=== PATIENT | male | born 1945 | race Caucasian/White ===

== ENCOUNTER 2017-04-16 14:24 | Inpatient (IN) | payer MEDICARE, OTHER ==
[~2017-04-16] VITALS: Ht 172.7 cm; Wt 103.0 kg
[~2017-04-16 14:24] MED LIST: AMLO10TA2 PO; ASPI-482 PO; ASPI-630 PO; ATOR20TA58 PO; CLIN300C8 PO; DIGO125T PO; DIGO125T16 PO; GLIP10TA13 PO; HYDR12.58 PO; HYDR25TA9 PO; Hydrocodone/Acetaminophen PO; LISI40TA PO; Lisinopril PO; METF-620 PO; METF500T9 PO; METO25TA4 PO; METO50TA2 PO; METO50TA29 PO; NAPR-634 PO; NAPR-677 PO; NAPR220C4 PO; NYST15CR TP; SIMV40TA PO; SIMV80TA3 PO
[2017-04-16] MEDS ORDERED: IV NORMAL SALINE 1000ML BAG 1,000 ML IV ONE ×2 (15:15→17:30)
--- NOTE | 2017-04-16 15:34 | PHYS DOC ---
Past Medical History Past Medical History: Arthritis, Diabetes-Type II, High Cholesterol, Hypertension, AR Past Surgical History: Cholecystectomy, Coronary Bypass Surgery, Knee Replacement Additional Past Surgical Histo: L KNEE REPLACEMENT, R EYE Alcohol Use: Occasionally Drug Use: None Adult General Chief Complaint Chief Complaint: CELLULITIS HPI HPI Patient is a 71 year old male with history of arthritis, diabetes type 2, hypertension, high cholesterol, who presents today with cellulitis of the right lower extremity. Patient states his had redness and swelling to the right lateral thigh as well as lateral knee for 2 weeks. Patient states the last time he had similar presentation it was an abscess in his knee that had to be evacuated by an orthopedic doctor. Patient denies any fever. Denies any nausea vomiting. Patient is very upset about being placed in room 6 which has a recliner instead of the bed. He states this is the worst hospital in town. He states this hospital is rated at a 2 and the only reason he comes here is convenient location to his house. Review of Systems Review of Systems Constitutional: Denies fever or chills [] Eyes: Denies change in visual acuity, redness, or eye pain [] HENT: Denies nasal congestion or sore throat [] Respiratory: Denies cough or shortness of breath [] Cardiovascular: No additional information not addressed in HPI [] GI: Denies abdominal pain, nausea, vomiting, bloody stools or diarrhea [] : Denies dysuria or hematuria [] Musculoskeletal: right lateral thigh and knee redness and swelling Integument: Denies rash or skin lesions [] Neurologic: Denies headache, focal weakness or sensory changes [] All other systems were reviewed and found to be within normal limits, except as documented in this note. Current Medications Current Medications Current Medications Medications (Trade) Dose Ordered Sig/Cheryl Start Time Stop Time Status Last Admin Dose Admin Ondansetron HCl (Zofran) 4 mg 1X ONCE 04/16/17 16:00 04/16/17 16:01 DC Sodium Chloride 1,000 ml @ 1,000 mls/hr 1X ONCE 04/16/17 15:15 04/16/17 16:14 DC 04/16/17 15:57 1,000 MLS/HR Allergies Allergies Allergies Coded Allergies Type Severity Reaction Last Updated Verified piperacillin Allergy Intermediate Rash 12/06/16 Yes tazobactam Allergy Intermediate Rash 12/06/16 Yes Physical Exam Physical Exam Constitutional: Well developed, well nourished, no acute distress, non-toxic appearance. [] HENT: Normocephalic, atraumatic, bilateral external ears normal, oropharynx moist, no oral exudates, nose normal. [] Eyes: PERRLA, EOMI, conjunctiva normal, no discharge. [] Neck: Normal range of motion, no tenderness, supple, no stridor. [] Cardiovascular:Heart rate regular rhythm, no murmur [] Lungs & Thorax: Bilateral breath sounds clear to auscultation [] Abdomen: Bowel sounds normal, soft, no tenderness, no masses, no pulsatile masses. [] Skin: Warm, dry, no erythema, no rash. [] Back: right lateral distal thigh and lateral knee with cellulitis and moderate swelling to the RLE. There is warmth over the the area with cellulites. There is limited ROM to the knee. +2 right pedal pulse. Negative Homans's sign to the RLE. Extremities: No tenderness, no cyanosis, no clubbing, ROM intact, no edema. [] Neurologic: Alert and oriented X 3, normal motor function, normal sensory function, no focal deficits noted. [] Psychologic: Affect normal, judgement normal, mood normal. [] Current Patient Data Vital Signs Vital Signs Date Time Temp Pulse Resp B/P (MAP) Pulse Ox O2 Delivery O2 Flow Rate FiO2 04/16/17 14:30 97.3 70 18 202/82 (122) 95 Room Air 97.3 Lab Values Laboratory Tests Test 04/16/17 15:50 White Blood Count 7.1 x10^3/uL (4.0-11.0) Red Blood Count 3.99 x10^6/uL (4.30-5.70) L Hemoglobin 12.1 g/dL (13.0-17.5) L Hematocrit 36.9 % (39.0-53.0) L Mean Corpuscular Volume 93 fL (79-100) Mean Corpuscular Hemoglobin 30 pg (25-35) Mean Corpuscular Hemoglobin Concent 33 g/dL (31-37) Red Cell Distribution Width 14.0 % (11.5-14.5) Platelet Count 264 x10^3/uL (140-400) Neutrophils (%) (Auto) 84 % (31-73) H Lymphocytes (%) (Auto) 9 % (24-48) L Monocytes (%) (Auto) 5 % (0-9) Eosinophils (%) (Auto) 2 % (0-3) Basophils (%) (Auto) 1 % (0-3) Neutrophils # (Auto) 6.0 x10^3uL (1.8-7.7) Lymphocytes # (Auto) 0.6 x10^3/uL (1.0-4.8) L Monocytes # (Auto) 0.3 x10^3/uL (0.0-1.1) Eosinophils # (Auto) 0.1 x10^3/uL (0.0-0.7) Basophils # (Auto) 0.1 x10^3/uL (0.0-0.2) Erythrocyte Sedimentation Rate 65 (0-15) H Prothrombin Time 14.5 SEC (11.7-14.0) H Prothrombin Time INR 1.2 (0.8-1.1) H PTT 32 SEC (24-38) Sodium Level 146 mmol/L (136-145) H Potassium Level 3.6 mmol/L (3.5-5.1) Chloride Level 112 mmol/L (98-107) H Carbon Dioxide Level 26 mmol/L (21-32) Anion Gap 8 (6-14) Blood Urea Nitrogen 21 mg/dL (8-26) Creatinine 1.3 mg/dL (0.7-1.3) Estimated GFR (Cockcroft-Gault) 54.6 BUN/Creatinine Ratio 16 (6-20) Glucose Level 144 mg/dL (70-99) H Calcium Level 8.4 mg/dL (8.5-10.1) L Total Bilirubin 0.4 mg/dL (0.2-1.0) Aspartate Amino Transferase (AST) 23 U/L (15-37) Alanine Aminotransferase (ALT) 23 U/L (16-63) Alkaline Phosphatase 165 U/L (46-116) H C-Reactive Protein, Quantitative 6.5 mg/L (0-3.3) H Total Protein 5.9 g/dL (6.4-8.2) L Albumin 2.5 g/dL (3.4-5.0) L Albumin/Globulin Ratio 0.7 (1.0-1.7) L Lipase 367 U/L (73-393) Laboratory Tests 04/16/17 15:50 Laboratory Tests 04/16/17 15:50 EKG EKG [] Radiology/Procedures Radiology/Procedures [] Course & Med Decision Making Course & Med Decision Making Pertinent Labs and Imaging studies reviewed. (See chart for details) Patient is in the ED with cellulitis of the right lateral lower extremity that his had for 2 weeks. He is insisting on an orthopedic surgeon to come to the ED and drainage stating this is an abscess that needs to be drained. Informed patient will do an ultrasound to the right lower extremity first. Ultrasound is negative for DVT or abscess but noted for swelling. Results were communicated to patient. Patient states he would like the orthopedic doctor to come and drained his knee again. Informed patient I can consult orthopedic doctor on the low follow-up with him probably tomorrow morning. Spoke with Broderick mid-level for Dr. Gutiérrez who stated he will pass message to him. Information was given to patient. Informed him we may need to do an x-ray to make sure there is no osteomyelitis to his knee. Patient now states they are ready did x-rays sometime in January and the x-rays were negative. He states his been fighting this infection since January. He states he has already done cephalexin antibiotic. Informed patient at this point we'll admit him and have him on antibiotic by IV. Admitted under Dr. Kaufman who is in the Ed talking to patient. Dragon Disclaimer Dragon Disclaimer This electronic medical record was generated, in whole or in part, using a voice recognition dictation system. Departure Departure Impression: Primary Impression: Cellulitis of right lower extremity Disposition: HOME, SELF-CARE Condition: STABLE Referrals: SUHAIL MARTINEZ (PCP) ISABEL BROWN STRESS ENGINEER Apr 16, 2017 15:34
--- NOTE | 2017-04-16 15:45 | RAD ---
Ultrasound venous Doppler Indication:right knee pain, redness, cellulitis Technique: Grayscale, color Doppler and spectral waveform ultrasound images of the right extremity deep veins. Comparison: None Findings: The interrogated lower extremity veins are compressible and demonstrate evidence of blood flow with normal respiratory variation and response to augmentation. Significant edema noted of the thigh soft tissue. Impression: No sonographic evidence of acute DVT of the interrogated right lower extremity deep veins. Significant edema of the thigh soft tissue.
[2017-04-16] MEDS ORDERED: ONDANSETRON PF 4 MG/2 ML VIAL. IV ONE (16:00)
[2017-04-16 16:03] LABS: BASO # 0.1 x10^3/uL (0.0-0.2); BASO % 1 % (0-3); EOS % 2 % (0-3); HEMATOCRIT 36.9 % (39.0-53.0); HEMOGLOBIN 12.1 g/dL (13.0-17.5); LYMPH # 0.6 x10^3/uL (1.0-4.8); LYMPH % 9 % (24-48); MEAN CORPUSCULAR HEMOGLOBIN 30 pg (25-35); MEAN CORPUSCULAR HGB CONC 33 g/dL (31-37); MEAN CORPUSCULAR VOLUME 93 fL (79-100); MONO % 5 % (0-9); NEUT % 84 % (31-73); PLATELET COUNT 264 x10^3/uL (140-400); RED BLOOD COUNT 3.99 x10^6/uL (4.30-5.70); WHITE BLOOD COUNT 7.1 x10^3/uL (4.0-11.0)
[2017-04-16 16:14] LABS: INR 1.2 (0.8-1.1); PROTHROMBIN TIME PATIENT 14.5 SEC (11.7-14.0)
[2017-04-16 16:31] LABS: CALCIUM 8.4 mg/dL (8.5-10.1); CREATININE 1.3 mg/dL (0.7-1.3); GFR 54.6; POTASSIUM 3.6 mmol/L (3.5-5.1)
[2017-04-16 16:35] LABS: ALBUMIN 2.5 g/dL (3.4-5.0); ALBUMIN/GLOBULIN RATIO 0.7 (1.0-1.7); TOTAL BILIRUBIN 0.4 mg/dL (0.2-1.0); TOTAL PROTEIN 5.9 g/dL (6.4-8.2)
[2017-04-16 17:11] LABS: C-REACTIVE PROTEIN 6.5 mg/L (0-3.3)
[2017-04-16] MEDS ORDERED: MORPHINE SULFATE 2 MG/ML DISP.SYRIN. IV PRN (17:30)
[2017-04-16] MEDS ORDERED: FUROSEMIDE 40 MG/4 ML VIAL. IVP ONE (17:30)
[2017-04-16] MEDS ORDERED: DEXTROSE 50% 25 GM / 50ML DISP.SYRIN. IV PRN (17:30)
[2017-04-16] MEDS ORDERED: NYSTATIN 100,000 UNIT/GM TOPICAL CREAM 15GM TUBE. TP PRN (17:30)
[2017-04-16] MEDS ORDERED: MORPHINE SULFATE 4 MG/ML DISP.SYRIN. IV PRN (17:30)
[2017-04-16] MEDS ORDERED: VANCOMYCIN 2 GM in IV DEXTROSE 5 %-0.2 % NACL 500 ML IV ONE (17:30)
[2017-04-16] MEDS ORDERED: ONDANSETRON PF 4 MG/2 ML VIAL. IV PRN ×2 (17:30)
--- NOTE | 2017-04-16 17:38 | PDOC1 ---
History and Physical Date of Admission Date of Admission DATE: 04/16/17 TIME: 17:31 Identification/Chief Complaint Chief Complaint leg swelling and pain Problems: Source Source: Caregiver, Chart review, Patient History of Present Illness History of Present Illness 71 y.o male who is a diabetic, unknown hgba1c, obese, comes in bec has been battling weeping legs x 3 mos now with his PCP Roshni Mars. NOt on lasix at home, asks about his kidney numbers, In any case, legs are red swollen, tight, noDVT on US but ? abscess rt leg? also pt has swollen Rt knee and wants ortho to drain the fluid, He was here this yr for abscess in thight that needed I and D by ortho that time, He also feels he is bloated and fluid overloaded in chest abdomen etc, Unsure when alst echo was, no hx of heart failure, NO open lesions but is tightm, red, lichenification from chronic cellulitis Past Medical History Cardiovascular: AFIB, CAD, HTN Endocrine: Diabetes Past Surgical History Past Surgical History: CABG Family History Family History: Diabetes, High Cholestrol, Hypertension Social History Smoke: No ALCOHOL: none Drugs: None Current Problem List Problem List Problems Medical Problems: (1) Cellulitis of right lower extremity Status: Acute Problems: Current Medications Current Medications Current Medications Sodium Chloride 1,000 ml @ 1,000 mls/hr 1X ONCE IV Last administered on 04/16t 15:57; Start 04/16/17 at 15:15; Stop 04/16/17 at 16:14; Status DC Ondansetron HCl (Zofran) 4 mg 1X ONCE IV ; Start 04/16/17 at 16:00; Stop at 16:01; Status DC Ondansetron HCl (Zofran) 4 mg PRN Q8HRS PRN IV NAUSEA/VOMITING; Start at 17:30; Stop 04/17/17 at 17:29 Morphine Sulfate 4 mg PRN Q2HR PRN IV PAIN; Start 04/16/17 at 17:30; Stop at 17:29 Vancomycin HCl (Vanco Per Pharmacy) 1 each DAILY MC ; Start 04/17/17 at 09:00; Status UNV Sodium Chloride 1,000 ml @ 100 mls/hr 1X ONCE IV ; Start 04/16/17 at 17:30; Stop 04/17/17 at 03:29 Vancomycin HCl 2 gm/Dextrose/ Sodium Chloride 500 ml @ 250 mls/hr 1X ONCE IV ; Start 04/16/17 at 17:30; Stop 04/16/17 at 19:29 Active Scripts Active Amlodipine Besylate 10 Mg Tablet 10 Mg PO DAILY Reported Atorvastatin Calcium 20 Mg Tablet 20 Mg PO HS Nystatin 15 Gm Cream..g. 1 Jt TP TID PRN Metoprolol Tartrate 25 Mg Tablet 0.5 Tab PO BID Metformin Hcl 1,000 Mg Tablet 1 Tab PO BID Hydrochlorothiazide Tablet (Hydrochlorothiazide) 25 Mg Tablet 25 Mg PO DAILY Lisinopril 40 Mg Tablet 40 Mg PO DAILY Aspirin 81 Mg Tab.chew 81 Mg PO DAILYAC Glipizide 10 Mg Tablet 1 Tab PO BID Allergies Allergies: Coded Allergies: piperacillin (Verified Allergy, Intermediate, Rash, 12/06/16) tazobactam (Verified Allergy, Intermediate, Rash, 12/06/16) ROS Review of System as per HPI, all else is neg Physical Exam General: Alert, Oriented X3, Cooperative, No acute distress HEENT: Atraumatic, PERRLA, EOMI Lungs: Clear to auscultation, Normal air movement, Other (dec BS sec to inc AP diam) Heart: S1S2, RRR, no thrills, no rubs Abdomen: Soft, Other (obese, hypoactive BS, non tender) Skin: Other (plus 2-3 tight pitting edema, redenned, post inflamm hyperpigmentationand lichenification present, some skin abrasions and tear, no weeping lesions for now) Neuro: Normal gait, Normal speech, Strength at 5/5 X4 ext, Normal tone, Sensation intact, Cranial nerves 3-12 NL, Reflexes 2+ Psych/Mental Status: Mental status NL, Mood NL Vitals Vitals Vital Signs Date Time Temp Pulse Resp B/P (MAP) Pulse Ox O2 Delivery O2 Flow Rate FiO2 04/16/17 14:30 97.3 70 18 202/82 (122) 95 Room Air 97.3 Labs Labs Laboratory Tests Test 04/16/17 15:50 White Blood Count 7.1 x10^3/uL (4.0-11.0) Red Blood Count 3.99 x10^6/uL (4.30-5.70) Hemoglobin 12.1 g/dL (13.0-17.5) Hematocrit 36.9 % (39.0-53.0) Mean Corpuscular Volume 93 fL (79-100) Mean Corpuscular Hemoglobin 30 pg (25-35) Mean Corpuscular Hemoglobin Concent 33 g/dL (31-37) Red Cell Distribution Width 14.0 % (11.5-14.5) Platelet Count 264 x10^3/uL (140-400) Neutrophils (%) (Auto) 84 % (31-73) Lymphocytes (%) (Auto) 9 % (24-48) Monocytes (%) (Auto) 5 % (0-9) Eosinophils (%) (Auto) 2 % (0-3) Basophils (%) (Auto) 1 % (0-3) Neutrophils # (Auto) 6.0 x10^3uL (1.8-7.7) Lymphocytes # (Auto) 0.6 x10^3/uL (1.0-4.8) Monocytes # (Auto) 0.3 x10^3/uL (0.0-1.1) Eosinophils # (Auto) 0.1 x10^3/uL (0.0-0.7) Basophils # (Auto) 0.1 x10^3/uL (0.0-0.2) Erythrocyte Sedimentation Rate 65 (0-15) Prothrombin Time 14.5 SEC (11.7-14.0) Prothromb Time International Ratio 1.2 (0.8-1.1) Activated Partial Thromboplast Time 32 SEC (24-38) Sodium Level 146 mmol/L (136-145) Potassium Level 3.6 mmol/L (3.5-5.1) Chloride Level 112 mmol/L (98-107) Carbon Dioxide Level 26 mmol/L (21-32) Anion Gap 8 (6-14) Blood Urea Nitrogen 21 mg/dL (8-26) Creatinine 1.3 mg/dL (0.7-1.3) Estimated GFR (Cockcroft-Gault) 54.6 BUN/Creatinine Ratio 16 (6-20) Glucose Level 144 mg/dL (70-99) Calcium Level 8.4 mg/dL (8.5-10.1) Total Bilirubin 0.4 mg/dL (0.2-1.0) Aspartate Amino Transf (AST/SGOT) 23 U/L (15-37) Alanine Aminotransferase (ALT/SGPT) 23 U/L (16-63) Alkaline Phosphatase 165 U/L (46-116) C-Reactive Protein, Quantitative 6.5 mg/L (0-3.3) Total Protein 5.9 g/dL (6.4-8.2) Albumin 2.5 g/dL (3.4-5.0) Albumin/Globulin Ratio 0.7 (1.0-1.7) Lipase 367 U/L (73-393) Laboratory Tests Test 04/16/17 15:50 White Blood Count 7.1 x10^3/uL (4.0-11.0) Red Blood Count 3.99 x10^6/uL (4.30-5.70) Hemoglobin 12.1 g/dL (13.0-17.5) Hematocrit 36.9 % (39.0-53.0) Mean Corpuscular Volume 93 fL (79-100) Mean Corpuscular Hemoglobin 30 pg (25-35) Mean Corpuscular Hemoglobin Concent 33 g/dL (31-37) Red Cell Distribution Width 14.0 % (11.5-14.5) Platelet Count 264 x10^3/uL (140-400) Neutrophils (%) (Auto) 84 % (31-73) Lymphocytes (%) (Auto) 9 % (24-48) Monocytes (%) (Auto) 5 % (0-9) Eosinophils (%) (Auto) 2 % (0-3) Basophils (%) (Auto) 1 % (0-3) Neutrophils # (Auto) 6.0 x10^3uL (1.8-7.7) Lymphocytes # (Auto) 0.6 x10^3/uL (1.0-4.8) Monocytes # (Auto) 0.3 x10^3/uL (0.0-1.1) Eosinophils # (Auto) 0.1 x10^3/uL (0.0-0.7) Basophils # (Auto) 0.1 x10^3/uL (0.0-0.2) Erythrocyte Sedimentation Rate 65 (0-15) Prothrombin Time 14.5 SEC (11.7-14.0) Prothromb Time International Ratio 1.2 (0.8-1.1) Activated Partial Thromboplast Time 32 SEC (24-38) Sodium Level 146 mmol/L (136-145) Potassium Level 3.6 mmol/L (3.5-5.1) Chloride Level 112 mmol/L (98-107) Carbon Dioxide Level 26 mmol/L (21-32) Anion Gap 8 (6-14) Blood Urea Nitrogen 21 mg/dL (8-26) Creatinine 1.3 mg/dL (0.7-1.3) Estimated GFR (Cockcroft-Gault) 54.6 BUN/Creatinine Ratio 16 (6-20) Glucose Level 144 mg/dL (70-99) Calcium Level 8.4 mg/dL (8.5-10.1) Total Bilirubin 0.4 mg/dL (0.2-1.0) Aspartate Amino Transf (AST/SGOT) 23 U/L (15-37) Alanine Aminotransferase (ALT/SGPT) 23 U/L (16-63) Alkaline Phosphatase 165 U/L (46-116) C-Reactive Protein, Quantitative 6.5 mg/L (0-3.3) Total Protein 5.9 g/dL (6.4-8.2) Albumin 2.5 g/dL (3.4-5.0) Albumin/Globulin Ratio 0.7 (1.0-1.7) Lipase 367 U/L (73-393) VTE Prophylaxis Ordered VTE Prophylaxis Devices: Yes VTE Pharmacological Prophylaxi: Yes Assessment/Plan Assessment/Plan 1. BIlateral LE cellulitis, no DVT ? abscesson RT ? 2. Dm 2 with neuropathy unknown hgba1c 3. 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 Hypernatremia 7, Anemia, normocytic, chronic 8. POss OA, rt knee with fluid plan: Admit 2 MN Consult ortho re possible drainage RT knee Check knee xray SSI high dose Check hgba1c Check echo and CXR gven anasarca Lasix daily and IV x 1 now 40 Wound care Onitor lytes while on lasix Consult ID re the cellulitis PT./OT and OT lymphedema Keep legs elevated DVT prophy Seen at ER Vanc per pharmacy was started by mid level provider Needs to lose weight STEFANIA MONTAGUE MD Apr 16, 2017 17:38
[2017-04-16 19:00] VITALS: BP 169/84
[2017-04-16] MEDS ORDERED: LABETALOL 20 MG/4 ML DISP.SYRIN. IVP PRN (19:00)
[2017-04-16] MEDS: METOPROLOL TART IMMED RELEASE 25 MG TABLET. PO SCH (20:18)
[2017-04-16] MEDS: ATORVASTATIN CALCIUM 20 MG TABLET PO SCH (20:18)
[2017-04-16] MEDS: TAMSULOSIN 0.4 MG CAP.ER.24H. PO SCH (20:19)
[2017-04-16 23:00] VITALS: BP 166/78
[2017-04-17 03:00] VITALS: BP 161/81
[2017-04-17 06:49] LABS: BASO % 1 % (0-3); EOS % 4 % (0-3); HEMATOCRIT 38.5 % (39.0-53.0); HEMOGLOBIN 12.5 g/dL (13.0-17.5); LYMPH # 0.8 x10^3/uL (1.0-4.8); LYMPH % 14 % (24-48); MEAN CORPUSCULAR HEMOGLOBIN 30 pg (25-35); MEAN CORPUSCULAR HGB CONC 33 g/dL (31-37); MEAN CORPUSCULAR VOLUME 93 fL (79-100); MONO % 6 % (0-9); NEUT % 75 % (31-73); PLATELET COUNT 271 x10^3/uL (140-400); RED BLOOD COUNT 4.15 x10^6/uL (4.30-5.70); WHITE BLOOD COUNT 5.8 x10^3/uL (4.0-11.0)
--- NOTE | 2017-04-17 06:59 | EKG ---
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
[2017-04-17 07:15] LABS: CALCIUM 8.2 mg/dL (8.5-10.1); CREATININE 1.2 mg/dL (0.7-1.3); GFR 59.9; POTASSIUM 4.1 mmol/L (3.5-5.1)
[2017-04-17 07:35] VITALS: BP 157/74
[2017-04-17] MEDS: INSULIN ASPART 300 UNITS/3 ML INSULN.PEN SQ SCH ×3 (08:00→17:00)
[2017-04-17] MEDS ORDERED: LIDO:MAALOX:DONNATAL 1:1:1 15 ML SINGLE DOSE SWSW ONE (08:30)
--- NOTE | 2017-04-17 08:34 | PDOC ---
PROGRESS NOTES Chief Complaint Chief Complaint 1. BIlateral LE cellulitis, no DVT ? abscesson RT ? 2. Dm 2 with neuropathy unknown hgba1c 3. 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 Hypernatremia 7, Anemia, normocytic, chronic 8. POss OA, rt knee with fluid History of Present Illness History of Present Illness Consult ortho re possible drainage RT knee Check knee xray echo pending, A1c Check echo and CXR kinza Fernandez daily consult Lorri, he has seen him previously weight gain, wants ADA diet changed to regular, will consult nutrition PT./OT and OT lymphedema Keep legs elevated DVT prophy Seen at ER [facility] per pharmacy was started by mid level provider Needs to lose weight Vitals Vitals Vital Signs Date Time Temp Pulse Resp B/P (MAP) Pulse Ox O2 Delivery O2 Flow Rate FiO2 04/17/17 07:35 98.1 71 18 157/74 (101) 92 Room Air 98.1 Physical Exam General: Alert, Oriented X3, Cooperative, No acute distress Lungs: Clear Abdomen: Soft, Other (obese, hypoactive BS, non tender) Extremities: Other (2+ LE edema, bilat and symmetrical) Skin: Other ( 2 pitting edema, redenned, post inflamm hyperpigmentationand lichenification present, some skin abrasions and tear, no weeping lesions for now) Labs LABS Laboratory Tests Test 04/16/17 15:50 04/16/17 21:26 04/17/17 06:10 04/17/17 07:11 White Blood Count 7.1 x10^3/uL (4.0-11.0) 5.8 x10^3/uL (4.0-11.0) Red Blood Count 3.99 x10^6/uL (4.30-5.70) 4.15 x10^6/uL (4.30-5.70) Hemoglobin 12.1 g/dL (13.0-17.5) 12.5 g/dL (13.0-17.5) Hematocrit 36.9 % (39.0-53.0) 38.5 % (39.0-53.0) Mean Corpuscular Volume 93 fL (79-100) 93 fL (79-100) Mean Corpuscular Hemoglobin 30 pg (25-35) 30 pg (25-35) Mean Corpuscular Hemoglobin Concent 33 g/dL (31-37) 33 g/dL (31-37) Red Cell Distribution Width 14.0 % (11.5-14.5) 14.0 % (11.5-14.5) Platelet Count 264 x10^3/uL (140-400) 271 x10^3/uL (140-400) Neutrophils (%) (Auto) 84 % (31-73) 75 % (31-73) Lymphocytes (%) (Auto) 9 % (24-48) 14 % (24-48) Monocytes (%) (Auto) 5 % (0-9) 6 % (0-9) Eosinophils (%) (Auto) 2 % (0-3) 4 % (0-3) Basophils (%) (Auto) 1 % (0-3) 1 % (0-3) Neutrophils # (Auto) 6.0 x10^3uL (1.8-7.7) 4.3 x10^3uL (1.8-7.7) Lymphocytes # (Auto) 0.6 x10^3/uL (1.0-4.8) 0.8 x10^3/uL (1.0-4.8) Monocytes # (Auto) 0.3 x10^3/uL (0.0-1.1) 0.4 x10^3/uL (0.0-1.1) Eosinophils # (Auto) 0.1 x10^3/uL (0.0-0.7) 0.2 x10^3/uL (0.0-0.7) Basophils # (Auto) 0.1 x10^3/uL (0.0-0.2) 0.0 x10^3/uL (0.0-0.2) Erythrocyte Sedimentation Rate 65 (0-15) Prothrombin Time 14.5 SEC (11.7-14.0) Prothromb Time International Ratio 1.2 (0.8-1.1) Activated Partial Thromboplast Time 32 SEC (24-38) Sodium Level 146 mmol/L (136-145) 145 mmol/L (136-145) Potassium Level 3.6 mmol/L (3.5-5.1) 4.1 mmol/L (3.5-5.1) Chloride Level 112 mmol/L (98-107) 112 mmol/L (98-107) Carbon Dioxide Level 26 mmol/L (21-32) 25 mmol/L (21-32) Anion Gap 8 (6-14) 8 (6-14) Blood Urea Nitrogen 21 mg/dL (8-26) 17 mg/dL (8-26) Creatinine 1.3 mg/dL (0.7-1.3) 1.2 mg/dL (0.7-1.3) Estimated GFR (Cockcroft-Gault) 54.6 59.9 BUN/Creatinine Ratio 16 (6-20) Glucose Level 144 mg/dL (70-99) 121 mg/dL (70-99) Calcium Level 8.4 mg/dL (8.5-10.1) 8.2 mg/dL (8.5-10.1) Total Bilirubin 0.4 mg/dL (0.2-1.0) Aspartate Amino Transf (AST/SGOT) 23 U/L (15-37) Alanine Aminotransferase (ALT/SGPT) 23 U/L (16-63) Alkaline Phosphatase 165 U/L (46-116) C-Reactive Protein, Quantitative 6.5 mg/L (0-3.3) Total Protein 5.9 g/dL (6.4-8.2) Albumin 2.5 g/dL (3.4-5.0) Albumin/Globulin Ratio 0.7 (1.0-1.7) Lipase 367 U/L (73-393) Prostate Specific Antigen 2.52 ng/mL (0.00-4.00) Glucose (Fingerstick) 167 mg/dL (70-99) 120 mg/dL (70-99) Troponin I Quantitative < 0.017 ng/mL (0.000-0.055) Review of Systems Review of Systems no n.vd. right knee less swollen today Assessment and Plan Assessmemt and Plan Problems Medical Problems: (1) Cellulitis of right lower extremity Status: Acute Problems: Comment Review of Relevant I have reviewed the following items marina (where applicable) has been applied. Labs Laboratory Tests Test 04/16/17 15:50 04/16/17 21:26 04/17/17 06:10 04/17/17 07:11 White Blood Count 7.1 x10^3/uL (4.0-11.0) 5.8 x10^3/uL (4.0-11.0) Red Blood Count 3.99 x10^6/uL (4.30-5.70) 4.15 x10^6/uL (4.30-5.70) Hemoglobin 12.1 g/dL (13.0-17.5) 12.5 g/dL (13.0-17.5) Hematocrit 36.9 % (39.0-53.0) 38.5 % (39.0-53.0) Mean Corpuscular Volume 93 fL (79-100) 93 fL (79-100) Mean Corpuscular Hemoglobin 30 pg (25-35) 30 pg (25-35) Mean Corpuscular Hemoglobin Concent 33 g/dL (31-37) 33 g/dL (31-37) Red Cell Distribution Width 14.0 % (11.5-14.5) 14.0 % (11.5-14.5) Platelet Count 264 x10^3/uL (140-400) 271 x10^3/uL (140-400) Neutrophils (%) (Auto) 84 % (31-73) 75 % (31-73) Lymphocytes (%) (Auto) 9 % (24-48) 14 % (24-48) Monocytes (%) (Auto) 5 % (0-9) 6 % (0-9) Eosinophils (%) (Auto) 2 % (0-3) 4 % (0-3) Basophils (%) (Auto) 1 % (0-3) 1 % (0-3) Neutrophils # (Auto) 6.0 x10^3uL (1.8-7.7) 4.3 x10^3uL (1.8-7.7) Lymphocytes # (Auto) 0.6 x10^3/uL (1.0-4.8) 0.8 x10^3/uL (1.0-4.8) Monocytes # (Auto) 0.3 x10^3/uL (0.0-1.1) 0.4 x10^3/uL (0.0-1.1) Eosinophils # (Auto) 0.1 x10^3/uL (0.0-0.7) 0.2 x10^3/uL (0.0-0.7) Basophils # (Auto) 0.1 x10^3/uL (0.0-0.2) 0.0 x10^3/uL (0.0-0.2) Erythrocyte Sedimentation Rate 65 (0-15) Prothrombin Time 14.5 SEC (11.7-14.0) Prothromb Time International Ratio 1.2 (0.8-1.1) Activated Partial Thromboplast Time 32 SEC (24-38) Sodium Level 146 mmol/L (136-145) 145 mmol/L (136-145) Potassium Level 3.6 mmol/L (3.5-5.1) 4.1 mmol/L (3.5-5.1) Chloride Level 112 mmol/L (98-107) 112 mmol/L (98-107) Carbon Dioxide Level 26 mmol/L (21-32) 25 mmol/L (21-32) Anion Gap 8 (6-14) 8 (6-14) Blood Urea Nitrogen 21 mg/dL (8-26) 17 mg/dL (8-26) Creatinine 1.3 mg/dL (0.7-1.3) 1.2 mg/dL (0.7-1.3) Estimated GFR (Cockcroft-Gault) 54.6 59.9 BUN/Creatinine Ratio 16 (6-20) Glucose Level 144 mg/dL (70-99) 121 mg/dL (70-99) Calcium Level 8.4 mg/dL (8.5-10.1) 8.2 mg/dL (8.5-10.1) Total Bilirubin 0.4 mg/dL (0.2-1.0) Aspartate Amino Transf (AST/SGOT) 23 U/L (15-37) Alanine Aminotransferase (ALT/SGPT) 23 U/L (16-63) Alkaline Phosphatase 165 U/L (46-116) C-Reactive Protein, Quantitative 6.5 mg/L (0-3.3) Total Protein 5.9 g/dL (6.4-8.2) Albumin 2.5 g/dL (3.4-5.0) Albumin/Globulin Ratio 0.7 (1.0-1.7) Lipase 367 U/L (73-393) Prostate Specific Antigen 2.52 ng/mL (0.00-4.00) Glucose (Fingerstick) 167 mg/dL (70-99) 120 mg/dL (70-99) Troponin I Quantitative < 0.017 ng/mL (0.000-0.055) Laboratory Tests Test 04/16/17 15:50 04/16/17 21:26 04/17/17 06:10 04/17/17 07:11 White Blood Count 7.1 x10^3/uL (4.0-11.0) 5.8 x10^3/uL (4.0-11.0) Red Blood Count 3.99 x10^6/uL (4.30-5.70) 4.15 x10^6/uL (4.30-5.70) Hemoglobin 12.1 g/dL (13.0-17.5) 12.5 g/dL (13.0-17.5) Hematocrit 36.9 % (39.0-53.0) 38.5 % (39.0-53.0) Mean Corpuscular Volume 93 fL (79-100) 93 fL (79-100) Mean Corpuscular Hemoglobin 30 pg (25-35) 30 pg (25-35) Mean Corpuscular Hemoglobin Concent 33 g/dL (31-37) 33 g/dL (31-37) Red Cell Distribution Width 14.0 % (11.5-14.5) 14.0 % (11.5-14.5) Platelet Count 264 x10^3/uL (140-400) 271 x10^3/uL (140-400) Neutrophils (%) (Auto) 84 % (31-73) 75 % (31-73) Lymphocytes (%) (Auto) 9 % (24-48) 14 % (24-48) Monocytes (%) (Auto) 5 % (0-9) 6 % (0-9) Eosinophils (%) (Auto) 2 % (0-3) 4 % (0-3) Basophils (%) (Auto) 1 % (0-3) 1 % (0-3) Neutrophils # (Auto) 6.0 x10^3uL (1.8-7.7) 4.3 x10^3uL (1.8-7.7) Lymphocytes # (Auto) 0.6 x10^3/uL (1.0-4.8) 0.8 x10^3/uL (1.0-4.8) Monocytes # (Auto) 0.3 x10^3/uL (0.0-1.1) 0.4 x10^3/uL (0.0-1.1) Eosinophils # (Auto) 0.1 x10^3/uL (0.0-0.7) 0.2 x10^3/uL (0.0-0.7) Basophils # (Auto) 0.1 x10^3/uL (0.0-0.2) 0.0 x10^3/uL (0.0-0.2) Erythrocyte Sedimentation Rate 65 (0-15) Prothrombin Time 14.5 SEC (11.7-14.0) Prothromb Time International Ratio 1.2 (0.8-1.1) Activated Partial Thromboplast Time 32 SEC (24-38) Sodium Level 146 mmol/L (136-145) 145 mmol/L (136-145) Potassium Level 3.6 mmol/L (3.5-5.1) 4.1 mmol/L (3.5-5.1) Chloride Level 112 mmol/L (98-107) 112 mmol/L (98-107) Carbon Dioxide Level 26 mmol/L (21-32) 25 mmol/L (21-32) Anion Gap 8 (6-14) 8 (6-14) Blood Urea Nitrogen 21 mg/dL (8-26) 17 mg/dL (8-26) Creatinine 1.3 mg/dL (0.7-1.3) 1.2 mg/dL (0.7-1.3) Estimated GFR (Cockcroft-Gault) 54.6 59.9 BUN/Creatinine Ratio 16 (6-20) Glucose Level 144 mg/dL (70-99) 121 mg/dL (70-99) Calcium Level 8.4 mg/dL (8.5-10.1) 8.2 mg/dL (8.5-10.1) Total Bilirubin 0.4 mg/dL (0.2-1.0) Aspartate Amino Transf (AST/SGOT) 23 U/L (15-37) Alanine Aminotransferase (ALT/SGPT) 23 U/L (16-63) Alkaline Phosphatase 165 U/L (46-116) C-Reactive Protein, Quantitative 6.5 mg/L (0-3.3) Total Protein 5.9 g/dL (6.4-8.2) Albumin 2.5 g/dL (3.4-5.0) Albumin/Globulin Ratio 0.7 (1.0-1.7) Lipase 367 U/L (73-393) Prostate Specific Antigen 2.52 ng/mL (0.00-4.00) Glucose (Fingerstick) 167 mg/dL (70-99) 120 mg/dL (70-99) Troponin I Quantitative < 0.017 ng/mL (0.000-0.055) Medications Current Medications Sodium Chloride 1,000 ml @ 1,000 mls/hr 1X ONCE IV Last administered on 04/16 15:57; Start 04/16/17 at 15:15; Stop 04/16/17 at 16:14; Status DC Ondansetron HCl (Zofran) 4 mg 1X ONCE IV ; Start 04/16/17 at 16:00; Stop at 16:01; Status DC Ondansetron HCl (Zofran) 4 mg PRN Q8HRS PRN IV NAUSEA/VOMITING; Start at 17:30; Stop 04/16/17 at 17:30; Status DC Morphine Sulfate 4 mg PRN Q2HR PRN IV PAIN; Start 04/16/17 at 17:30; Stop at 17:29 Vancomycin HCl (Vanco Per Pharmacy) 1 each DAILY MC ; Start 04/17/17 at 09:00 Sodium Chloride 1,000 ml @ 100 mls/hr 1X ONCE IV Last administered on 18:39; Start 04/16/17 at 17:30; Stop 04/17/17 at 03:29; Status DC Vancomycin HCl 2 gm/Dextrose/ Sodium Chloride 500 ml @ 250 mls/hr 1X ONCE IV Last administered on 04/16/17 18:26; Start 04/16/17 at 17:30; Stop 04/16/17 at 19:29; Status DC Ondansetron HCl (Zofran) 4 mg PRN Q6HRS PRN IV NAUSEA/VOMITING; Start at 17:30; Stop 04/17/17 at 17:29 Insulin Aspart (NovoLOG) 0-9 UNITS TIDWMEALS SQ ; Start 04/17/17 at 08:00 Dextrose (Dextrose 50%-Water Syringe) 12.5 gm PRN Q15MIN PRN IV SEE COMMENTS; Start 04/16/17 at 17:30 Morphine Sulfate 2 mg PRN Q2HR PRN IV PAIN; Start 04/16/17 at 17:30 Tamsulosin HCl (Flomax) 0.4 mg QHS PO Last administered on 04/16/17 20:19; Start 04/16/17 at 21:00 Amlodipine Besylate (Norvasc) 10 mg DAILY PO ; Start 04/17/17 at 09:00 Atorvastatin Calcium (Lipitor) 20 mg HS PO Last administered on 04/16/17 20: 18; Start 04/16/17 at 21:00 Hydrochlorothiazide (Hydrodiuril) 25 mg DAILY PO ; Start 04/17/17 at 09:00 Lisinopril (Prinivil) 40 mg DAILY PO ; Start 04/17/17 at 09:00 Metformin HCl (Glucophage) 1,000 mg BIDWMEALS PO ; Start 04/17/17 at 08:00 Metoprolol Tartrate (Lopressor) 12.5 mg BID PO Last administered on 04/16/17 20:18; Start 04/16/17 at 21:00 Nystatin (Mycostatin) 1 jt TID PRN TP RASH; Start 04/16/17 at 17:30 Glipizide (Glucotrol) 10 mg BIDBFRMEAL PO ; Start 04/17/17 at 07:30 Furosemide (Lasix) 40 mg DAILY IVP ; Start 04/17/17 at 09:00 Furosemide (Lasix) 40 mg 1X ONCE IVP Last administered on 04/16/17 18:27; Start 04/16/17 at 17:30; Stop 04/16/17 at 17:39; Status DC Vancomycin HCl 1.5 gm/Dextrose/ Sodium Chloride 500 ml @ 250 mls/hr Q18H ONCE IV ; Start 04/17/17 at 12:00; Stop 04/17/17 at 13:59 Vancomycin HCl 1 each 1X ONCE MC ; Start 04/18/17 at 05:30; Stop 04/18/17 at 05:31 Labetalol HCl (Normodyne) 10 mg PRN BID PRN IVP HYPERTENSION, SEE COMMENTS; Start 04/16/17 at 19:00 Pneumococcal Polyvalent Vaccine (Do NOT chart on this placeholder) 1 each 1X ONCE MC ; Start 04/17/17 at 09:00; Stop 04/17/17 at 09:01; Status UNV Pneumococcal Polyvalent Vaccine (Pneumovax 23) 0.5 ml ONCE ONCE VAX IM ; Start 04/17/17 at 09:00; Stop 04/17/17 at 09:01 Active Scripts Active Amlodipine Besylate 10 Mg Tablet 10 Mg PO DAILY Reported Atorvastatin Calcium 20 Mg Tablet 20 Mg PO HS Nystatin 15 Gm Cream..g. 1 Jt TP TID PRN Metoprolol Tartrate 25 Mg Tablet 0.5 Tab PO BID Metformin Hcl 1,000 Mg Tablet 1 Tab PO BID Hydrochlorothiazide Tablet (Hydrochlorothiazide) 25 Mg Tablet 25 Mg PO DAILY Lisinopril 40 Mg Tablet 40 Mg PO DAILY Aspirin 81 Mg Tab.chew 81 Mg PO DAILYAC Glipizide 10 Mg Tablet 1 Tab PO BID Vitals/I & O Vital Sign - Last 24 Hours 04/16/17 04/16/17 04/16/17 04/16/17 14:30 17:49 18:45 19:00 Temp 97.3 98.0 97.3 98.0 Pulse 70 66 70 72 Resp 18 18 16 20 B/P (MAP) 202/82 (122) 195/83 (120) 204/91 (128) 169/84 (112) Pulse Ox 95 96 95 95 O2 Delivery Room Air Room Air Room Air Room Air 04/16/17 04/16/17 04/16/17 04/17/17 20:18 23:00 23:27 03:00 Temp 98.2 98.2 98.2 98.2 Pulse 70 70 69 Resp 20 20 B/P (MAP) 204/91 166/78 (107) 161/81 (107) Pulse Ox 92 92 O2 Delivery Room Air Room Air Room Air 04/17/17 07:35 Temp 98.1 98.1 Pulse 71 Resp 18 B/P (MAP) 157/74 (101) Pulse Ox 92 O2 Delivery Room Air Intake and Output 04/16/17 04/16/17 04/17/17 15:00 23:00 07:00 Intake Total 1000 ml 3800 ml Output Total 3500 ml Balance 1000 ml 300 ml SHAHEEN HOLLAND MD Apr 17, 2017 08:34
--- NOTE | 2017-04-17 08:39 | RAD ---
Knee x-rays Indication: Pain and swelling. History of kidney surgery. Technique: 2 views of the right knee Comparison: None Findings: No acute fracture or dislocation. There is moderate lateral joint compartment narrowing with bony spurs in the posterior patellar margin. No suprapatellar effusion. Peripheral arterial disease as suggested by vascular calcifications. Impression: No acute fractures. Lateral compartment osteoarthritis.
[2017-04-17] MEDS: glipiZIDE 5 MG TABLET PO SCH ×2 (08:47→17:20)
[2017-04-17] MEDS: hydroCHLOROthiazide 25 MG TABLET PO SCH (08:48)
[2017-04-17] MEDS: amLODIPine BESYLATE 10 MG TABLET PO SCH (08:48)
[2017-04-17] MEDS: METOPROLOL TART IMMED RELEASE 25 MG TABLET. PO SCH ×2 (08:49→20:44)
[2017-04-17] MEDS: LISINOPRIL 40 MG TABLET. PO SCH (08:49)
--- NOTE | 2017-04-17 08:50 | RAD ---
CHEST PA LATERAL Clinical Indication: swelling, pain Comparison: Chest radiograph dated 03/25/2016 Findings: Unchanged asymmetric elevation of the right hemidiaphragm. No focal consolidations. Stable pulmonary vasculature. Possible small bilateral pleural effusions. No pneumothorax. The cardiomediastinal silhouette is stable. CABG. Stable tortuous thoracic aorta. Prior median sternotomy. No acute osseous abnormality. Mild multilevel degenerative changes of the visualized spine. IMPRESSION: 1. No focal consolidations. 2. Possible small bilateral pleural effusions.
[2017-04-17] MEDS: FUROSEMIDE 40 MG/4 ML VIAL. IVP SCH (08:55)
[2017-04-17] MEDS ORDERED: PNEUMOC CONJ VACC 23-VALENT 0.5 ML VIAL. VAX IM ONE (09:00)
[2017-04-17] MEDS: FAMOTIDINE 20 MG TABLET. PO SCH ×2 (09:00→20:43)
[2017-04-17] MEDS ORDERED: VANCOMYCIN PER PHARMACY MC SCH (09:00)
[2017-04-17] MEDS ORDERED: PNEUMOCOCCAL VAX SCREEN BY RX. MC ONE (09:00)
[2017-04-17 11:00] VITALS: BP 182/76
[2017-04-17] MEDS ORDERED: VANCOMYCIN 1.5 GM in IV DEXTROSE 5 %-0.2 % NACL 500 ML IV ONE (12:00)
--- NOTE | 2017-04-17 12:11 | PDOC2 ---
EARL BLANCHARD [employer] ADVISOR 04/17/17 1211: CARDIAC CONSULT DATE OF CONSULT Date of Consult DATE: 04/17/17 TIME: 11:44 REASON FOR CONSULT Reason for Consult: CHF REFERRING PHYSICIAN Referring Physician: Dr. Del Real SOURCE Source: Chart review, Patient HISTORY OF PRESENT ILLNESS HISTORY OF PRESENT ILLNESS This is a 71 yo male who presented secondary to redness and swelling of the right thigh and fluid retention. Patient reports the redness has been present for the last couple of weeks. Has been retaining fluid and mildly SOA for the last month. Provides that he is noncompliant with diet (sodium intake) and does not "show up" to his follow up appointment. Does take Lasix at home with instructions to take 2-3 20mg tablets daily. Reports taking 1 daily. Denies any chest pain, palpitations, dizziness, diaphoresis, or nausea/vomiting. PAST MEDICAL HISTORY Cardiovascular: CAD, CHF, HTN, Hyperlipidemia Pulmonary: No pertinent hx CENTRAL NERVOUS SYSTEM: Periperal neuropathy GI: GERD Heme/Onc: No pertinent hx Hepatobiliary: No pertinent hx Psych: No pertinent hx Musculoskeletal: Osteoarthritis Rheumatologic: No pertinent hx Infectious disease: No pertinent hx ENT: No pertinent hx Renal/: Chronic renal insuff Endocrine: Diabetes Dermatology: No pertinent hx PAST SURGICAL HISTORY Past Surgical History: Cholecystectomy, CABG (2012) FAMILY HISTORY Family History: Diabetes, Heart Disease, High Cholestrol, Hypertension SOCIAL HISTORY Smoke: Quit (2013) ALCOHOL: social Drugs: None Lives: with Family CURRENT MEDICATIONS CURRENT MEDICATIONS Current Medications Medications (Trade) Dose Ordered Sig/Cheryl Route PRN Reason Start Time Stop Time Status Last Admin Dose Admin Sodium Chloride 1,000 ml @ 1,000 mls/hr 1X ONCE IV 04/16/17 15:15 04/16/17 16:14 DC 04/16/17 15:57 Sodium Chloride 1,000 ml @ 100 mls/hr 1X ONCE IV 04/16/17 17:30 04/17/17 03:29 DC 04/16/17 18:39 Vancomycin HCl 2 gm/Dextrose/ Sodium Chloride 500 ml @ 250 mls/hr 1X ONCE IV 04/16/17 17:30 04/16/17 19:29 DC 04/16/17 18:26 Tamsulosin HCl (Flomax) 0.4 mg QHS PO 04/16/17 21:00 04/16/17 20:19 Amlodipine Besylate (Norvasc) 10 mg DAILY PO 04/17/17 09:00 04/17/17 08:48 Atorvastatin Calcium (Lipitor) 20 mg HS PO 04/16/17 21:00 04/16/17 20:18 Hydrochlorothiazide (Hydrodiuril) 25 mg DAILY PO 04/17/17 09:00 04/17/17 08:48 Lisinopril (Prinivil) 40 mg DAILY PO 04/17/17 09:00 04/17/17 08:49 Metoprolol Tartrate (Lopressor) 12.5 mg BID PO 04/16/17 21:00 04/17/17 08:49 Glipizide (Glucotrol) 10 mg BIDBFRMEAL PO 04/17/17 07:30 04/17/17 08:47 Furosemide (Lasix) 40 mg DAILY IVP 04/17/17 09:00 04/17/17 08:55 Furosemide (Lasix) 40 mg 1X ONCE IVP 04/16/17 17:30 04/16/17 17:39 DC 04/16/17 18:27 ALLERGIES ALLERGIES: Coded Allergies: piperacillin (Verified Allergy, Intermediate, Rash, 12/06/16) tazobactam (Verified Allergy, Intermediate, Rash, 12/06/16) ROS Review of System 14 point ROS conducted with pertinent positives noted above in HPI. PHYSICAL EXAM General: Alert, Oriented X3, Cooperative, No acute distress HEENT: Atraumatic, Mucous membr. moist/pink Lungs: Other (bibasilar crackles) Heart: Regular rate, Normal S1, Normal S2, Other (2/6 systolic murmur ) Abdomen: Soft, Other (ascites) Extremities: Other (3+ bilateral LE edema, chronic venous stasis changes to bi LE) Skin: Other (right lateral thigh erythema) Neuro: Normal speech, Sensation intact Psych/Mental Status: Mental status NL, Mood NL MUSCULOSKELETAL: Osteoarthritic changes both hands VITALS VITALS Vital Signs Date Time Temp Pulse Resp B/P (MAP) Pulse Ox O2 Delivery O2 Flow Rate FiO2 04/17/17 08:49 71 157/74 04/17/17 07:35 98.1 18 92 Room Air 98.1 LABS Lab: Laboratory Tests Test 04/16/17 15:50 04/16/17 21:26 04/17/17 06:10 04/17/17 07:11 White Blood Count 7.1 x10^3/uL (4.0-11.0) 5.8 x10^3/uL (4.0-11.0) Red Blood Count 3.99 x10^6/uL (4.30-5.70) 4.15 x10^6/uL (4.30-5.70) Hemoglobin 12.1 g/dL (13.0-17.5) 12.5 g/dL (13.0-17.5) Hematocrit 36.9 % (39.0-53.0) 38.5 % (39.0-53.0) Mean Corpuscular Volume 93 fL (79-100) 93 fL (79-100) Mean Corpuscular Hemoglobin 30 pg (25-35) 30 pg (25-35) Mean Corpuscular Hemoglobin Concent 33 g/dL (31-37) 33 g/dL (31-37) Red Cell Distribution Width 14.0 % (11.5-14.5) 14.0 % (11.5-14.5) Platelet Count 264 x10^3/uL (140-400) 271 x10^3/uL (140-400) Neutrophils (%) (Auto) 84 % (31-73) 75 % (31-73) Lymphocytes (%) (Auto) 9 % (24-48) 14 % (24-48) Monocytes (%) (Auto) 5 % (0-9) 6 % (0-9) Eosinophils (%) (Auto) 2 % (0-3) 4 % (0-3) Basophils (%) (Auto) 1 % (0-3) 1 % (0-3) Neutrophils # (Auto) 6.0 x10^3uL (1.8-7.7) 4.3 x10^3uL (1.8-7.7) Lymphocytes # (Auto) 0.6 x10^3/uL (1.0-4.8) 0.8 x10^3/uL (1.0-4.8) Monocytes # (Auto) 0.3 x10^3/uL (0.0-1.1) 0.4 x10^3/uL (0.0-1.1) Eosinophils # (Auto) 0.1 x10^3/uL (0.0-0.7) 0.2 x10^3/uL (0.0-0.7) Basophils # (Auto) 0.1 x10^3/uL (0.0-0.2) 0.0 x10^3/uL (0.0-0.2) Erythrocyte Sedimentation Rate 65 (0-15) Prothrombin Time 14.5 SEC (11.7-14.0) Prothromb Time International Ratio 1.2 (0.8-1.1) Activated Partial Thromboplast Time 32 SEC (24-38) Sodium Level 146 mmol/L (136-145) 145 mmol/L (136-145) Potassium Level 3.6 mmol/L (3.5-5.1) 4.1 mmol/L (3.5-5.1) Chloride Level 112 mmol/L (98-107) 112 mmol/L (98-107) Carbon Dioxide Level 26 mmol/L (21-32) 25 mmol/L (21-32) Anion Gap 8 (6-14) 8 (6-14) Blood Urea Nitrogen 21 mg/dL (8-26) 17 mg/dL (8-26) Creatinine 1.3 mg/dL (0.7-1.3) 1.2 mg/dL (0.7-1.3) Estimated GFR (Cockcroft-Gault) 54.6 59.9 BUN/Creatinine Ratio 16 (6-20) Glucose Level 144 mg/dL (70-99) 121 mg/dL (70-99) Calcium Level 8.4 mg/dL (8.5-10.1) 8.2 mg/dL (8.5-10.1) Total Bilirubin 0.4 mg/dL (0.2-1.0) Aspartate Amino Transf (AST/SGOT) 23 U/L (15-37) Alanine Aminotransferase (ALT/SGPT) 23 U/L (16-63) Alkaline Phosphatase 165 U/L (46-116) C-Reactive Protein, Quantitative 6.5 mg/L (0-3.3) Total Protein 5.9 g/dL (6.4-8.2) Albumin 2.5 g/dL (3.4-5.0) Albumin/Globulin Ratio 0.7 (1.0-1.7) Lipase 367 U/L (73-393) Prostate Specific Antigen 2.52 ng/mL (0.00-4.00) Glucose (Fingerstick) 167 mg/dL (70-99) 120 mg/dL (70-99) Troponin I Quantitative < 0.017 ng/mL (0.000-0.055) Test 04/17/17 11:19 Glucose (Fingerstick) 132 mg/dL (70-99) ECHOCARDIOGRAM ECHOCARDIOGRAM <Conclusion> The left ventricle is normal size. The left ventricular systolic function is normal and the ejection fraction is within normal range. The Ejection Fraction is 55-60%. There is mild left ventricular hypertrophy. There is no significant aortic valvular stenosis. Doppler and Color Flow revealed no significant aortic regurgitation. Doppler and Color Flow revealed trace mitral valve regurgitation. Doppler and Color Flow revealed moderate tricuspid regurgitation. The PA pressure was estimated at 40 mmHg. There is no evidence of significant pericardial effusion. DATE: 03/26/16 1743 ASSESSMENT/PLAN ASSESSMENT/PLAN 1. Acute on chronic diastolic HF; LVEF 55-60 % 04/04 2. Chronic bilateral LE edema/venous stasis with present RLE cellulitis; encouraged elevation. ID consulted 3. CAD s/p CABG (2012); stable. CP free 4. Malignant hypertension; better controlled but remains slightly labile 5. Hyperlipidemia; statin 6. Diabetes; Management per IM 7. CKD; monitor with diuresis 8. Possible PAD- vascular calcifications noted on knee xray. Denies any claudication symptoms. Will f/u on an outpatient basis 9. Noncompliance; Discusses/ encouraged dietary and medications compliance Recommendations Echo pending to assess LV function Continue diuresis with monitor of kidney function 2Gm Na diet; 1500cc FR Resume secondary prevention measures Monitor BP trends to assess need for therapy titration. Hydralazine IV PRN Problems: ELLIOT MADRIGAL MD 04/17/17 6698: CARDIAC CONSULT ALLERGIES ALLERGIES: Coded Allergies: piperacillin (Verified Allergy, Intermediate, Rash, 12/06/16) tazobactam (Verified Allergy, Intermediate, Rash, 12/06/16) ASSESSMENT/PLAN ASSESSMENT/PLAN Patient seen and examined. Agree with [employer]'s assessment and plan. Continue diuresis for acute on chronic diastolic heart failure. Blood pressure better controlled since admission. CAD status clinically stable. Check 2-D echo to assess LV function. Continue management of cellulitis per ID team. Thank you for your consultation. Problems: SANTO,EARL [employer] ADVISOR Apr 17, 2017 12:11 ELLIOT MADRIGAL MD Apr 17, 2017 17:58
[2017-04-17] MEDS ORDERED: hydrALAZINE 20 MG/ML VIAL. IVP PRN (12:15)
[2017-04-17] MEDS: PIOGLITAZONE 15 MG TABLET. PO SCH (12:32)
[2017-04-17 13:19] LABS: CHOLESTEROL/HDL RATIO 2.2
--- NOTE | 2017-04-17 14:19 | PDOC ---
Infectious Disease Note ROS ROS Vital Sign Vital Signs Vital Signs Date Time Temp Pulse Resp B/P (MAP) Pulse Ox O2 Delivery O2 Flow Rate FiO2 04/17/17 11:00 97.4 65 18 182/76 (111) 92 Room Air 97.4 Labs Lab Laboratory Tests Test 04/16/17 15:50 04/16/17 21:26 04/17/17 06:10 04/17/17 07:11 White Blood Count 7.1 x10^3/uL (4.0-11.0) 5.8 x10^3/uL (4.0-11.0) Red Blood Count 3.99 x10^6/uL (4.30-5.70) 4.15 x10^6/uL (4.30-5.70) Hemoglobin 12.1 g/dL (13.0-17.5) 12.5 g/dL (13.0-17.5) Hematocrit 36.9 % (39.0-53.0) 38.5 % (39.0-53.0) Mean Corpuscular Volume 93 fL (79-100) 93 fL (79-100) Mean Corpuscular Hemoglobin 30 pg (25-35) 30 pg (25-35) Mean Corpuscular Hemoglobin Concent 33 g/dL (31-37) 33 g/dL (31-37) Red Cell Distribution Width 14.0 % (11.5-14.5) 14.0 % (11.5-14.5) Platelet Count 264 x10^3/uL (140-400) 271 x10^3/uL (140-400) Neutrophils (%) (Auto) 84 % (31-73) 75 % (31-73) Lymphocytes (%) (Auto) 9 % (24-48) 14 % (24-48) Monocytes (%) (Auto) 5 % (0-9) 6 % (0-9) Eosinophils (%) (Auto) 2 % (0-3) 4 % (0-3) Basophils (%) (Auto) 1 % (0-3) 1 % (0-3) Neutrophils # (Auto) 6.0 x10^3uL (1.8-7.7) 4.3 x10^3uL (1.8-7.7) Lymphocytes # (Auto) 0.6 x10^3/uL (1.0-4.8) 0.8 x10^3/uL (1.0-4.8) Monocytes # (Auto) 0.3 x10^3/uL (0.0-1.1) 0.4 x10^3/uL (0.0-1.1) Eosinophils # (Auto) 0.1 x10^3/uL (0.0-0.7) 0.2 x10^3/uL (0.0-0.7) Basophils # (Auto) 0.1 x10^3/uL (0.0-0.2) 0.0 x10^3/uL (0.0-0.2) Erythrocyte Sedimentation Rate 65 (0-15) Prothrombin Time 14.5 SEC (11.7-14.0) Prothromb Time International Ratio 1.2 (0.8-1.1) Activated Partial Thromboplast Time 32 SEC (24-38) Sodium Level 146 mmol/L (136-145) 145 mmol/L (136-145) Potassium Level 3.6 mmol/L (3.5-5.1) 4.1 mmol/L (3.5-5.1) Chloride Level 112 mmol/L (98-107) 112 mmol/L (98-107) Carbon Dioxide Level 26 mmol/L (21-32) 25 mmol/L (21-32) Anion Gap 8 (6-14) 8 (6-14) Blood Urea Nitrogen 21 mg/dL (8-26) 17 mg/dL (8-26) Creatinine 1.3 mg/dL (0.7-1.3) 1.2 mg/dL (0.7-1.3) Estimated GFR (Cockcroft-Gault) 54.6 59.9 BUN/Creatinine Ratio 16 (6-20) Glucose Level 144 mg/dL (70-99) 121 mg/dL (70-99) Calcium Level 8.4 mg/dL (8.5-10.1) 8.2 mg/dL (8.5-10.1) Total Bilirubin 0.4 mg/dL (0.2-1.0) Aspartate Amino Transf (AST/SGOT) 23 U/L (15-37) Alanine Aminotransferase (ALT/SGPT) 23 U/L (16-63) Alkaline Phosphatase 165 U/L (46-116) C-Reactive Protein, Quantitative 6.5 mg/L (0-3.3) Total Protein 5.9 g/dL (6.4-8.2) Albumin 2.5 g/dL (3.4-5.0) Albumin/Globulin Ratio 0.7 (1.0-1.7) Lipase 367 U/L (73-393) Prostate Specific Antigen 2.52 ng/mL (0.00-4.00) Glucose (Fingerstick) 167 mg/dL (70-99) 120 mg/dL (70-99) Troponin I Quantitative < 0.017 ng/mL (0.000-0.055) PE-Keg-C-Type Natriuretic Peptide 1950 pg/mL (0-124) Triglycerides Level 100 mg/dL (0-150) Cholesterol Level 149 mg/dL (0-200) LDL Cholesterol, Calculated 61 mg/dL (0-100) VLDL Cholesterol, Calculated 20 mg/dL (0-40) Non-HDL Cholesterol Calculated 81 mg/dL (0-129) HDL Cholesterol 68 mg/dL (40-60) Cholesterol/HDL Ratio 2.2 Test 04/17/17 11:19 04/17/17 11:45 Glucose (Fingerstick) 132 mg/dL (70-99) Troponin I Quantitative < 0.017 ng/mL (0.000-0.055) Objective Assessment Cellulitis right lateral thigh. - Prior hx group B strep abscess s/p bedside I and D, Mar 2016 Chronic edema lower extremities, bilat Allergy PCN & Zosyn, causing rash and pruritus Hptso-zn-ggptlra diastolic CHF DM CAD CKD Plan Plan of Care Change to Cefazolin. 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
[2017-04-17] MEDS ORDERED: VANCOMYCIN PER PHARMACY MC PRN (14:45)
[2017-04-17] MEDS ORDERED: ceFAZolin SODIUM 1 GM in IV DEXTROSE 5% 50 ML IV SCH (15:00)
[2017-04-17 15:15] VITALS: BP 164/73
[2017-04-17] MEDS: ceFAZolin SODIUM IV Push 1 GM VIAL. IVP SCH ×2 (17:21→22:02)
[2017-04-17 19:00] VITALS: BP 162/56
[2017-04-17] MEDS ORDERED: IBUPROFEN 400 MG TABLET. PO PRN ×2 (19:45→20:45)
[2017-04-17] MEDS: ATORVASTATIN CALCIUM 20 MG TABLET PO SCH (20:43)
[2017-04-17] MEDS: TAMSULOSIN 0.4 MG CAP.ER.24H. PO SCH (20:43)
[2017-04-17] MEDS: LACTOBACILLUS RHAMNOSUS GG 1 CAPSULE. PO SCH (20:43)
[2017-04-17 23:00] VITALS: BP 152/71
[2017-04-18] VITALS (7 sets, daily range): BP systolic 108–164; BP diastolic 61–67
--- NOTE | 2017-04-18 03:08 | CONS ---
DATE OF CONSULTATION: 04/16/2017 REFERRING PHYSICIAN: Dr. Kaufman. REASON FOR CONSULTATION: Cellulitis, right lower extremity. HISTORY OF PRESENT ILLNESS: The patient is a 71-year-old male with a history of congestive heart failure and chronic swelling of lower extremities bilaterally, who presented to the ER with right thigh redness, swelling, and pain for the past several weeks. He denies fevers, chills, sweats or body aches. His white blood cell count was normal with a sed rate of 65. An ultrasound showed significant edema of the thigh soft tissue without evidence of acute DVT. The patient has a history of penicillin and Zosyn allergy and was started on vancomycin in the ER. Since admission, the patient states the swelling is going down. The patient has a prior history of a superficial abscess located on the right lateral thigh for which he underwent a bedside I and D in 03/2016. At that time, the culture grew beta hemolytic Streptococcus group B and he was treated with clarithromycin. In addition, he was admitted to [facility] in January for similar symptoms of redness and swelling in the same area. Imaging did not show any fluid collection and he was discharged on a 10-day course of cefdinir. PAST MEDICAL HISTORY: Congestive heart failure, coronary artery disease, peripheral neuropathy, diabetes mellitus type 2, arthritis, hypertension, hyperlipidemia, chronic kidney disease, obesity. PAST SURGICAL HISTORY: Cholecystectomy, coronary artery bypass graft in 2012. FAMILY HISTORY: Positive for diabetes, heart disease, hyperlipidemia, and hypertension. SOCIAL HISTORY: The patient lives at home. Former smoker. Drinks alcohol socially. ALLERGIES: PENICILLIN CAUSING A RASH; and PIPERACILLIN/TAZOBACTAM CAUSING PRURITUS. MEDICATIONS: Vancomycin. Other medications are available and have been reviewed on the JUL. REVIEW OF SYSTEMS: Denies headache, nasal/sinus congestion, sore throat. Denies cough, shortness of air or wheezing. Denies chest pain or palpitations. Denies nausea, vomiting, diarrhea. Denies rash. He has chronic swelling of his lower extremities. Denies dysuria, frequency, urgency. PHYSICAL EXAMINATION: GENERAL: The patient is propped up in bed, in no apparent distress. VITAL SIGNS: Temperature is 97.4, blood pressure 192/76, heart rate 65, respiratory rate 18, pulse oximetry 92% on room air. Weight is 235 pounds, BMI 35. HEENT: Pupils equally round, reactive. Normal conjunctivae. Oral mucosa is pink and moist. NECK: Supple. LUNGS: Fine crackles in lower lung seaman. HEART: Normal S1 and S2. ABDOMEN: Obese. Bowel sounds active. Soft, nontender. EXTREMITIES: Lower extremities are edematous bilaterally with chronic stasis changes. Right lateral thigh is warm, erythematous and swollen. No open wounds or drainage noted. SKIN: Without rash. NEUROLOGIC: Alert and oriented x 3. LABORATORY DATA: Today's WBC 5.8, hemoglobin 12.5, hematocrit 38.5, platelet count 271,000. Sed rate 65. Electrolytes are unremarkable. Creatinine 1.2, BUN 17, glucose 121. Hemoglobin A1c 7.4. Troponin less than 0.017. BNP 1950. Albumin 2.5. CRP 6.5. A venous ultrasound shows significant edema of the thigh soft tissue without evidence of acute DVT. Chest x-ray shows no focal consolidations; possible small bilateral pleural effusions. X-ray of right knee reveals lateral compartment osteoarthritis. No acute fractures. IMPRESSION: 1. Cellulitis of right lateral thigh. 2. History of group B strep. 3. Chronic edema of lower extremities bilaterally. 4. Allergy to PENICILLIN AND ZOSYN causing rash and pruritus. 5. Acute on chronic diastolic congestive heart failure. 6. Diabetes mellitus. 7. Coronary artery disease. 8. Chronic kidney disease. PLAN: I am going to change the vancomycin to cefazolin. The patient has tolerated cephalosporins without problems in the past. Leg elevation. Supportive care. Thank you, Dr. Kaufman, for asking us to participate in this patient's care. Should you have further questions or concerns, please call. The patient seen and examined, plan of care implemented by Dr. Lorne Sandoval. LORNE SANDOVAL MD DR: STACEY/maurice JOB#: [id number] / [id number] POLA
[2017-04-18] MEDS ORDERED: VANCOMYCIN 1.5 GM in IV DEXTROSE 5 %-0.2 % NACL 500 ML IV SCH (06:00)
[2017-04-18] MEDS: ceFAZolin SODIUM IV Push 1 GM VIAL. IVP SCH ×3 (06:06→21:39)
[2017-04-18] MEDS: INSULIN ASPART 300 UNITS/3 ML INSULN.PEN SQ SCH ×3 (08:00→17:00)
[2017-04-18] MEDS: hydroCHLOROthiazide 25 MG TABLET PO SCH (08:41)
[2017-04-18] MEDS: FAMOTIDINE 20 MG TABLET. PO SCH ×2 (08:41→21:38)
[2017-04-18] MEDS: LACTOBACILLUS RHAMNOSUS GG 1 CAPSULE. PO SCH ×2 (08:41→21:38)
[2017-04-18] MEDS: amLODIPine BESYLATE 10 MG TABLET PO SCH (08:42)
[2017-04-18] MEDS: glipiZIDE 5 MG TABLET PO SCH ×2 (08:42→17:10)
[2017-04-18] MEDS: PIOGLITAZONE 15 MG TABLET. PO SCH (08:42)
[2017-04-18] MEDS: LISINOPRIL 40 MG TABLET. PO SCH (08:42)
[2017-04-18] MEDS: FUROSEMIDE 40 MG/4 ML VIAL. IVP SCH (08:43)
[2017-04-18] MEDS: METOPROLOL TART IMMED RELEASE 25 MG TABLET. PO SCH ×2 (08:43→21:38)
--- NOTE | 2017-04-18 09:01 | CARD ---
APPROVED REPORT EXAM: Two-dimensional and M-mode echocardiogram with Doppler and color Doppler. Other Information Quality : GoodHR: 64bpm Technically limited study due to INDICATION LV Function: Congestive Heart Failure 2D DIMENSIONS Left Atrium(2D)4.6 (1.6-4.0cm)IVSd1.8 (0.7-1.1cm) Aortic Root(2D)3.6 (2.0-3.7cm)LVDd5.0 (3.9-5.9cm) LVOT Diameter2.6 (1.8-2.4cm)PWd1.5 (0.7-1.1cm) LVDs3.8 (2.5-4.0cm)FS (%) 23.2 % SV53.7 mlLVEF(%)46.4 (>50%) Aortic Valve AoV Peak Toan.149.5cm/sAoV VTI29.9cm AO Peak GR.8.9mmHgLVOT Peak Toan.111.4cm/s AO Mean GR.4mmHgAVA (VMAX)3.88cm2 Mitral Valve MV E Boetotfw30.4cm/sMV DECEL WVEI696vs MV A Jlkwvekt375.1cm/sE/A Ratio0.7 Pulmonary Valve PV Peak Xgsdxyex357.1cm/s Tricuspid Valve TR P. Binosmlq732ee/sRAP DOGLUIGP3uwGs TR Peak Gr.98ryRtJRZC61esXq LEFT VENTRICLE The left ventricle is normal size. There is mild to moderate concentric left ventricular hypertrophy. The left ventricular systolic function is normal and the ejection fraction is within normal range. E F 50-55% Mild basal inferolateral hypokinesis, otherwise, grossly normal. Septal motion suggestive of paced rhythm. Tissue Doppler imaging reveals mild left ventricular diastolic dysfunction. RIGHT VENTRICLE The right ventricle is normal size. The right ventricular systolic function is normal. ATRIA The left atrium is mildly dilated. The right atrium size is normal. The interatrial septum is intact with no evidence for an atrial septal defect or patent foramen ovale as noted on 2-D or Doppler imagi ng. AORTIC VALVE Not well visualized. Doppler and Color Flow revealed no significant aortic regurgitation. There is no significant aortic valvular stenosis. There is no aortic valvular vegetation. MITRAL VALVE The mitral valve is thickened but opens well. There is no evidence of mitral valve prolapse. There is no mitral valve stenosis. Doppler and Color Flow revealed no mitral valve regurgitation noted. TRICUSPID VALVE The tricuspid valve is normal in structure and function. Doppler and Color Flow revealed mild tricusp id regurgitation. The PA pressure was estimated at 26 mmHg. There is no tricuspid valve prolapse or v egetation. There is no tricuspid valve stenosis. PULMONIC VALVE Doppler and Color Flow revealed no pulmonic valvular regurgitation. There is no pulmonic valvular joseph nosis. GREAT VESSELS The aortic root is normal in size. The ascending aorta is normal in size. The IVC is normal in size a nd collapses >50% with inspiration. PERICARDIAL EFFUSION There is no pleural effusion. There is no evidence of significant pericardial effusion. Critical Notification Critical Value: No <Conclusion> The left ventricular systolic function is normal and the ejection fraction is within normal range. EF 50-55% Mild basal inferolateral hypokinesis, otherwise, grossly normal. Septal motion suggestive of paced rh ythm.
--- NOTE | 2017-04-18 11:15 | PDOC ---
CARDIO Progress Notes Date and Time Date of Service 04/18/17 Time of Evaluation 1045 Subjective Subjective: No Chest Pain, No shortness of breath, Other (upset- wanting to have surgeon drain right thigh ) Vitals Vitals Vital Signs Date Time Temp Pulse Resp B/P (MAP) Pulse Ox O2 Delivery O2 Flow Rate FiO2 04/18/17 08:43 64 164/65 04/18/17 08:15 Room Air 04/18/17 07:00 97.7 18 94 97.7 Weight Weight [ ] Input and Output Intake and Output Intake and Output 04/18/17 07:00 Intake Total 760 ml Output Total 1700 ml Balance -940 ml Intake Oral 760 ml Output Urine Total 1700 ml # Voids 1 Laboratory Labs Laboratory Tests Test 04/17/17 11:19 04/17/17 11:45 04/17/17 16:10 04/17/17 20:41 Glucose (Fingerstick) 132 mg/dL (70-99) 92 mg/dL (70-99) 83 mg/dL (70-99) Troponin I Quantitative < 0.017 ng/mL (0.000-0.055) Test 04/18/17 07:54 Glucose (Fingerstick) 101 mg/dL (70-99) Microbiology Micro Microbiology 04/16/17 Blood Culture - Preliminary, Resulted NO GROWTH AFTER 1 DAY Physical Exam HEENT: Neck Supple W Full Motion Chest: Symmetric LUNGS: Other (bibasilar crackles) Heart: S1S2, RRR, murmurs (2/6 systolic murmur ) Abdomen: Soft N/T Extremities: Other (3+ bilateral LE edema, chronic venous stasis changes to bi LE; right lateral thigh erythema) Neurology: alert, oriented, follow commands Assessment Assessment 1. Acute on chronic diastolic HF; better compensated. Significant LE edema remains. echo showed preserved LV function with an EF of 50-55 % 2. Chronic bilateral LE edema/venous stasis with present RLE cellulitis; encouraged elevation. ID following 3. CAD s/p CABG (2012); stable. CP free 4. Malignant hypertension; remains slightly elevated 5. Hyperlipidemia; statin 6. Diabetes; Management per IM 7. CKD; monitor with diuresis 8. Possible PAD- vascular calcifications noted on knee xray. Denies any claudication symptoms. Will f/u on an outpatient basis 9. Noncompliance/ poor insight; Discusses/ encouraged dietary and medications compliance. Recommendations Diuresis with monitor of kidney function 2Gm Na diet; 1500cc FR Continue secondary prevention measures Add scheduled hydralazine for improved BP control EARL BLANCHARD APRN Apr 18, 2017 11:15
--- NOTE | 2017-04-18 11:41 | PDOC ---
PROGRESS NOTES Chief Complaint Chief Complaint 1. R LE cellulitis, no DVT 2. 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 Obesity 4, Mild PCM 5, Anasarca 6. Hypernatremia 7, Anemia, normocytic, chronic 8. Poss OA, rt knee with fluid History of Present Illness History of Present Illness ortho was consulted, re possible drainage RT knee - to be eval MRI was done recently per patient echo done Lasix started daily consult hannah Blackmon PT./OT and OT lymphedema Keep legs elevated DVT prophy nutrition consulted for weight loss Vitals Vitals Vital Signs Date Time Temp Pulse Resp B/P (MAP) Pulse Ox O2 Delivery O2 Flow Rate FiO2 04/18/17 08:43 64 164/65 04/18/17 08:15 Room Air 04/18/17 07:00 97.7 18 94 97.7 Physical Exam General: Alert, Oriented X3, Cooperative, No acute distress Heart: Regular rate, Normal S1, Normal S2, Other (2/6 systolic murmur ) Lungs: Clear Abdomen: Soft, No tenderness, Other (ascites) Extremities: Other (2 edmea, ble , feet are improved to 1+) Skin: No rashes, Other (right lateral thigh erythema) Labs LABS Laboratory Tests Test 04/17/17 11:45 04/17/17 16:10 04/17/17 20:41 04/18/17 07:54 Troponin I Quantitative < 0.017 ng/mL (0.000-0.055) Glucose (Fingerstick) 92 mg/dL (70-99) 83 mg/dL (70-99) 101 mg/dL (70-99) Review of Systems Review of Systems no n.v.d upset about right knee pain, ongoing effusion Assessment and Plan Assessmemt and Plan Problems Medical Problems: (1) Cellulitis of right lower extremity Status: Acute Problems: Comment Review of Relevant I have reviewed the following items marina (where applicable) has been applied. Labs Laboratory Tests Test 04/16/17 15:50 04/16/17 21:26 04/17/17 06:10 04/17/17 07:11 White Blood Count 7.1 x10^3/uL (4.0-11.0) 5.8 x10^3/uL (4.0-11.0) Red Blood Count 3.99 x10^6/uL (4.30-5.70) 4.15 x10^6/uL (4.30-5.70) Hemoglobin 12.1 g/dL (13.0-17.5) 12.5 g/dL (13.0-17.5) Hematocrit 36.9 % (39.0-53.0) 38.5 % (39.0-53.0) Mean Corpuscular Volume 93 fL (79-100) 93 fL (79-100) Mean Corpuscular Hemoglobin 30 pg (25-35) 30 pg (25-35) Mean Corpuscular Hemoglobin Concent 33 g/dL (31-37) 33 g/dL (31-37) Red Cell Distribution Width 14.0 % (11.5-14.5) 14.0 % (11.5-14.5) Platelet Count 264 x10^3/uL (140-400) 271 x10^3/uL (140-400) Neutrophils (%) (Auto) 84 % (31-73) 75 % (31-73) Lymphocytes (%) (Auto) 9 % (24-48) 14 % (24-48) Monocytes (%) (Auto) 5 % (0-9) 6 % (0-9) Eosinophils (%) (Auto) 2 % (0-3) 4 % (0-3) Basophils (%) (Auto) 1 % (0-3) 1 % (0-3) Neutrophils # (Auto) 6.0 x10^3uL (1.8-7.7) 4.3 x10^3uL (1.8-7.7) Lymphocytes # (Auto) 0.6 x10^3/uL (1.0-4.8) 0.8 x10^3/uL (1.0-4.8) Monocytes # (Auto) 0.3 x10^3/uL (0.0-1.1) 0.4 x10^3/uL (0.0-1.1) Eosinophils # (Auto) 0.1 x10^3/uL (0.0-0.7) 0.2 x10^3/uL (0.0-0.7) Basophils # (Auto) 0.1 x10^3/uL (0.0-0.2) 0.0 x10^3/uL (0.0-0.2) Erythrocyte Sedimentation Rate 65 (0-15) Prothrombin Time 14.5 SEC (11.7-14.0) Prothromb Time International Ratio 1.2 (0.8-1.1) Activated Partial Thromboplast Time 32 SEC (24-38) Sodium Level 146 mmol/L (136-145) 145 mmol/L (136-145) Potassium Level 3.6 mmol/L (3.5-5.1) 4.1 mmol/L (3.5-5.1) Chloride Level 112 mmol/L (98-107) 112 mmol/L (98-107) Carbon Dioxide Level 26 mmol/L (21-32) 25 mmol/L (21-32) Anion Gap 8 (6-14) 8 (6-14) Blood Urea Nitrogen 21 mg/dL (8-26) 17 mg/dL (8-26) Creatinine 1.3 mg/dL (0.7-1.3) 1.2 mg/dL (0.7-1.3) Estimated GFR (Cockcroft-Gault) 54.6 59.9 BUN/Creatinine Ratio 16 (6-20) Glucose Level 144 mg/dL (70-99) 121 mg/dL (70-99) Calcium Level 8.4 mg/dL (8.5-10.1) 8.2 mg/dL (8.5-10.1) Total Bilirubin 0.4 mg/dL (0.2-1.0) Aspartate Amino Transf (AST/SGOT) 23 U/L (15-37) Alanine Aminotransferase (ALT/SGPT) 23 U/L (16-63) Alkaline Phosphatase 165 U/L (46-116) C-Reactive Protein, Quantitative 6.5 mg/L (0-3.3) Total Protein 5.9 g/dL (6.4-8.2) Albumin 2.5 g/dL (3.4-5.0) Albumin/Globulin Ratio 0.7 (1.0-1.7) Lipase 367 U/L (73-393) Prostate Specific Antigen 2.52 ng/mL (0.00-4.00) Glucose (Fingerstick) 167 mg/dL (70-99) 120 mg/dL (70-99) Hemoglobin A1c 7.4 % (4.8-5.6) Troponin I Quantitative < 0.017 ng/mL (0.000-0.055) HV-Wep-W-Type Natriuretic Peptide 1950 pg/mL (0-124) Triglycerides Level 100 mg/dL (0-150) Cholesterol Level 149 mg/dL (0-200) LDL Cholesterol, Calculated 61 mg/dL (0-100) VLDL Cholesterol, Calculated 20 mg/dL (0-40) Non-HDL Cholesterol Calculated 81 mg/dL (0-129) HDL Cholesterol 68 mg/dL (40-60) Cholesterol/HDL Ratio 2.2 Test 04/17/17 11:19 04/17/17 11:45 04/17/17 16:10 04/17/17 20:41 Glucose (Fingerstick) 132 mg/dL (70-99) 92 mg/dL (70-99) 83 mg/dL (70-99) Troponin I Quantitative < 0.017 ng/mL (0.000-0.055) Test 04/18/17 07:54 Glucose (Fingerstick) 101 mg/dL (70-99) Laboratory Tests Test 04/17/17 11:45 04/17/17 16:10 04/17/17 20:41 04/18/17 07:54 Troponin I Quantitative < 0.017 ng/mL (0.000-0.055) Glucose (Fingerstick) 92 mg/dL (70-99) 83 mg/dL (70-99) 101 mg/dL (70-99) Microbiology 04/16/17 Blood Culture - Preliminary, Resulted NO GROWTH AFTER 1 DAY Medications Current Medications Sodium Chloride 1,000 ml @ 1,000 mls/hr 1X ONCE IV Last administered on 04/16t 15:57; Start 04/16/17 at 15:15; Stop 04/16/17 at 16:14; Status DC Ondansetron HCl (Zofran) 4 mg 1X ONCE IV ; Start 04/16/17 at 16:00; Stop at 16:01; Status DC Ondansetron HCl (Zofran) 4 mg PRN Q8HRS PRN IV NAUSEA/VOMITING; Start at 17:30; Stop 04/16/17 at 17:30; Status DC Morphine Sulfate 4 mg PRN Q2HR PRN IV PAIN; Start 04/16/17 at 17:30; Stop at 17:29; Status DC Vancomycin HCl (Vanco Per Pharmacy) 1 each DAILY MC ; Start 04/17/17 at 09:00; Status Cancel Sodium Chloride 1,000 ml @ 100 mls/hr 1X ONCE IV Last administered on 18:39; Start 04/16/17 at 17:30; Stop 04/17/17 at 03:29; Status DC Vancomycin HCl 2 gm/Dextrose/ Sodium Chloride 500 ml @ 250 mls/hr 1X ONCE IV Last administered on 04/16/17 18:26; Start 04/16/17 at 17:30; Stop 04/16/17 at 19:29; Status DC Ondansetron HCl (Zofran) 4 mg PRN Q6HRS PRN IV NAUSEA/VOMITING; Start at 17:30 Insulin Aspart (NovoLOG) 0-9 UNITS TIDWMEALS SQ ; Start 04/17/17 at 08:00 Dextrose (Dextrose 50%-Water Syringe) 12.5 gm PRN Q15MIN PRN IV SEE COMMENTS; Start 04/16/17 at 17:30 Morphine Sulfate 2 mg PRN Q2HR PRN IV PAIN; Start 04/16/17 at 17:30 Tamsulosin HCl (Flomax) 0.4 mg QHS PO Last administered on 04/17/17 20:43; Start 04/16/17 at 21:00 Amlodipine Besylate (Norvasc) 10 mg DAILY PO Last administered on 04/18/17 08 :42; Start 04/17/17 at 09:00 Atorvastatin Calcium (Lipitor) 20 mg HS PO Last administered on 04/17/17 20: 43; Start 04/16/17 at 21:00 Hydrochlorothiazide (Hydrodiuril) 25 mg DAILY PO Last administered on 08:41; Start 04/17/17 at 09:00 Lisinopril (Prinivil) 40 mg DAILY PO Last administered on 04/18/17 08:42; Start 04/17/17 at 09:00 Metformin HCl (Glucophage) 1,000 mg BIDWMEALS PO ; Start 04/17/17 at 08:00; Stop 04/17/17 at 09:39; Status DC Metoprolol Tartrate (Lopressor) 12.5 mg BID PO Last administered on 04/18/17 08:43; Start 04/16/17 at 21:00 Nystatin (Mycostatin) 1 jt TID PRN TP RASH; Start 04/16/17 at 17:30 Glipizide (Glucotrol) 10 mg BIDBFRMEAL PO Last administered on 04/18/17 08:42 ; Start 04/17/17 at 07:30 Furosemide (Lasix) 40 mg DAILY IVP Last administered on 04/18/17 08:43; Start 04/17/17 at 09:00 Furosemide (Lasix) 40 mg 1X ONCE IVP Last administered on 04/16/17 18:27; Start 04/16/17 at 17:30; Stop 04/16/17 at 17:39; Status DC Vancomycin HCl 1.5 gm/Dextrose/ Sodium Chloride 500 ml @ 250 mls/hr Q18H ONCE IV Last administered on 04/17/17 12:49; Start 04/17/17 at 12:00; Stop 04/17 at 15:21; Status DC Vancomycin HCl 1 each 1X ONCE MC ; Start 04/18/17 at 05:30; Stop 04/18/17 at 05:30; Status DC Labetalol HCl (Normodyne) 10 mg PRN BID PRN IVP HYPERTENSION, SEE COMMENTS; Start 04/16/17 at 19:00 Pneumococcal Polyvalent Vaccine (Do NOT chart on this placeholder) 1 each 1X ONCE MC ; Start 04/17/17 at 09:00; Stop 04/17/17 at 09:01; Status UNV Pneumococcal Polyvalent Vaccine (Pneumovax 23) 0.5 ml ONCE ONCE VAX IM Last administered on 04/17/17 12:36; Start 04/17/17 at 09:00; Stop 04/17/17 at 09 :01; Status DC Multi-Ingredient Mouthwash/Gargle (Gi Cocktail Single Dose) 15 ml 1X ONCE SWSW ; Start 04/17/17 at 08:30; Stop 04/17/17 at 08:32; Status DC Famotidine (Pepcid) 20 mg BID PO Last administered on 04/18/17 08:41; Start 04/17/17 at 09:00 Pioglitazone HCl (Actos) 30 mg DAILY PO Last administered on 04/18/17 08:42; Start 04/17/17 at 10:00 Hydralazine HCl (Apresoline Inj) 10 mg PRN Q4HRS PRN IVP ELEVATED BP, SEE COMMENTS; Start 04/17/17 at 12:15 Vancomycin HCl 1.5 gm/Dextrose/ Sodium Chloride 500 ml @ 250 mls/hr Q18H IV ; Start 04/18/17 at 06:00; Stop 04/18/17 at 06:00; Status DC Vancomycin HCl (Vanco Per Pharmacy) 1 each PRN DAILY PRN MC PER PROTOCOL Last administered on 04/17/17 14:34; Start 04/17/17 at 14:45; Stop 04/17/17 at 14 :51; Status DC Lactobacillus Rhamnosus (Culturelle) 1 cap BID PO Last administered on 08:41; Start 04/17/17 at 21:00 Cefazolin Sodium 1 gm/Dextrose 50 ml @ 100 mls/hr Q8HRS IV ; Start 04/17/17 at 15:00; Status Cancel Cefazolin Sodium (Ancef) 1 gm Q8HRS IVP Last administered on 04/18/17 06:06; Start 04/17/17 at 15:00 Ibuprofen (Motrin) 400 mg PRN Q8HRS PRN PO INFLAMMATION; Start 04/17/17 at 19: 45 Ibuprofen (Motrin) 400 mg PRN Q8HRS PRN PO INFLAMMATION; Start 04/17/17 at 20: 45 Active Scripts Active Amlodipine Besylate 10 Mg Tablet 10 Mg PO DAILY Reported Atorvastatin Calcium 20 Mg Tablet 20 Mg PO HS Nystatin 15 Gm Cream..g. 1 Jt TP TID PRN Metoprolol Tartrate 25 Mg Tablet 0.5 Tab PO BID Metformin Hcl 1,000 Mg Tablet 1 Tab PO BID Hydrochlorothiazide Tablet (Hydrochlorothiazide) 25 Mg Tablet 25 Mg PO DAILY Lisinopril 40 Mg Tablet 40 Mg PO DAILY Aspirin 81 Mg Tab.chew 81 Mg PO DAILYAC Glipizide 10 Mg Tablet 1 Tab PO BID Vitals/I & O Vital Sign - Last 24 Hours 04/17/17 04/17/17 04/17/17 04/17/17 15:15 19:00 20:00 20:44 Temp 98.1 98.2 98.1 98.2 Pulse 69 65 65 Resp 18 17 B/P (MAP) 164/73 (103) 162/56 (91) 162/56 Pulse Ox 91 94 O2 Delivery Room Air Room Air Room Air 04/17/17 04/18/17 04/18/17 04/18/17 23:00 03:00 07:00 08:15 Temp 98.3 98.3 97.7 98.3 98.3 97.7 Pulse 70 58 64 Resp 16 19 18 B/P (MAP) 152/71 (98) 139/61 (87) 164/65 (98) Pulse Ox 96 97 94 O2 Delivery Room Air Room Air Room Air Room Air 04/18/17 04/18/17 04/18/17 08:42 08:42 08:43 Pulse 64 64 64 B/P (MAP) 164/65 164/65 164/65 Intake and Output 04/17/17 04/17/17 04/18/17 15:00 23:00 07:00 Intake Total 360 ml 400 ml Output Total 1000 ml 700 ml Balance -640 ml -300 ml SHAHEEN HOLLAND MD Apr 18, 2017 11:41
--- NOTE | 2017-04-18 13:55 | PDOC ---
Infectious Disease Note Subjective Subjective Pt is doing ok continues to have Rt thigh swelling warmth and pain no n/v/d/f/c/abdo pain ROS ROS GEN: Denies fevers, chills, sweats HEENT: Denies blurred vision, sore throat CV: Denies chest pain RESP: Denies shortness of air, cough GI: Denies n/v/d NEURO: Denies confusion, dizziness MSK: Denies weakness, joint pain/swelling Vital Sign Vital Signs Vital Signs Date Time Temp Pulse Resp B/P (MAP) Pulse Ox O2 Delivery O2 Flow Rate FiO2 04/18/17 11:00 97.9 65 18 145/62 (89) 95 Room Air 97.9 Physical Exam PHYSICAL EXAM GENERAL: NAD, Alert HEENT: anicteric NECK: Supple, no JVD, LUNGS: Clear HEART: S1S2, ABD: Soft, NT, no organomegaly, no rebound EXT: RT thigh redness, edema,tenderness present, no fluctuance, rt knee no swelling, TILLER MAN: Alert, oriented x 3, no focal neurologic deficit SKIN: No rash IV: ok Labs Lab Laboratory Tests Test 04/17/17 16:10 04/17/17 20:41 04/18/17 07:54 04/18/17 11:47 Glucose (Fingerstick) 92 mg/dL (70-99) 83 mg/dL (70-99) 101 mg/dL (70-99) 151 mg/dL (70-99) Micro reviewed Objective Assessment IMPRESSION: 1. Cellulitis of right lateral thigh.Rt knee does not appear to have any evidence of septic joint 2. History of group B strep infection. 3. Chronic edema of lower extremities bilaterally. 4. Allergy to PENICILLIN AND ZOSYN causing rash and pruritus.Tolerated cephalosporins and merrem well in the past 5. Acute on chronic diastolic congestive heart failure. 6. Diabetes mellitus. 7. Coronary artery disease. 8. Chronic kidney disease. Plan Plan of Care continue Cefazolin. Local care Has tolerated cephalosporins in the past w/o problems Leg elevation f/u c/s AYESHA SANDOVAL MD Apr 18, 2017 13:55
--- NOTE | 2017-04-18 15:07 | PDOC ---
Provider Note Provider Note Full note to follow. Edema around his knee without focal bursitis or abscess. Possible knee effusion, but probably not a septic joint. I will aspirate his knee, and likely inject with steroid, if the aspiration fluid from the knee joint appears benign. DIRK VALENTINE MD Apr 18, 2017 15:07
[2017-04-18] MEDS ORDERED: methylPREDNISolone ACETATE 80 MG/ML VIAL. IM ONE (15:15)
[2017-04-18] MEDS ORDERED: BUPIVACAINE MPF 0.25% 10 ML VIAL. IJ ONE (15:15)
[2017-04-18] MEDS: TAMSULOSIN 0.4 MG CAP.ER.24H. PO SCH (21:38)
[2017-04-18] MEDS: ATORVASTATIN CALCIUM 20 MG TABLET PO SCH (21:39)
[2017-04-19 03:00] VITALS: BP 157/84
[2017-04-19] MEDS: ceFAZolin SODIUM IV Push 1 GM VIAL. IVP SCH (06:00)
[2017-04-19 07:00] VITALS: BP 159/72
[2017-04-19 07:03] LABS: BASO % 1 % (0-3); EOS % 5 % (0-3); HEMATOCRIT 34.4 % (39.0-53.0); HEMOGLOBIN 11.4 g/dL (13.0-17.5); LYMPH # 0.7 x10^3/uL (1.0-4.8); LYMPH % 15 % (24-48); MEAN CORPUSCULAR HEMOGLOBIN 31 pg (25-35); MEAN CORPUSCULAR HGB CONC 33 g/dL (31-37); MEAN CORPUSCULAR VOLUME 92 fL (79-100); MONO % 7 % (0-9); NEUT % 73 % (31-73); PLATELET COUNT 225 x10^3/uL (140-400); RED BLOOD COUNT 3.73 x10^6/uL (4.30-5.70); RED CELL DISTRIBUTION WIDTH 13.8 % (11.5-14.5); WHITE BLOOD COUNT 4.5 x10^3/uL (4.0-11.0)
[2017-04-19 07:07] LABS: ALBUMIN/GLOBULIN RATIO 0.5 (1.0-1.7); CALCIUM 8.7 mg/dL (8.5-10.1); CREATININE 1.3 mg/dL (0.7-1.3); GFR 54.6; POTASSIUM 3.8 mmol/L (3.5-5.1); TOTAL BILIRUBIN 0.3 mg/dL (0.2-1.0); TOTAL PROTEIN 5.8 g/dL (6.4-8.2)
[2017-04-19] MEDS: INSULIN ASPART 300 UNITS/3 ML INSULN.PEN SQ SCH ×2 (08:00→12:19)
[2017-04-19] MEDS: FAMOTIDINE 20 MG TABLET. PO SCH (08:26)
[2017-04-19] MEDS: FUROSEMIDE 40 MG/4 ML VIAL. IVP SCH (08:26)
[2017-04-19] MEDS: LISINOPRIL 40 MG TABLET. PO SCH (08:26)
[2017-04-19] MEDS: hydroCHLOROthiazide 25 MG TABLET PO SCH (08:27)
[2017-04-19] MEDS: LACTOBACILLUS RHAMNOSUS GG 1 CAPSULE. PO SCH (08:27)
[2017-04-19] MEDS: PIOGLITAZONE 15 MG TABLET. PO SCH (08:27)
[2017-04-19] MEDS: amLODIPine BESYLATE 10 MG TABLET PO SCH (08:27)
[2017-04-19] MEDS: METOPROLOL TART IMMED RELEASE 25 MG TABLET. PO SCH (08:29)
[2017-04-19] MEDS: glipiZIDE 5 MG TABLET PO SCH (08:29)
--- NOTE | 2017-04-19 09:30 | PDOC ---
Infectious Disease Note Subjective Subjective Pt is doing ok says rt thigh swelling and redness has improved no n/v/d/f/c/abdo pain awaiting synovial aspirate of Rt Knee today ROS ROS GEN: Denies fevers, chills, sweats HEENT: Denies blurred vision, sore throat CV: Denies chest pain RESP: Denies shortness of air, cough GI: Denies n/v/d NEURO: Denies confusion, dizziness MSK: Denies weakness, joint pain/swelling Vital Sign Vital Signs Vital Signs Date Time Temp Pulse Resp B/P (MAP) Pulse Ox O2 Delivery O2 Flow Rate FiO2 04/19/17 08:39 61 159/72 04/19/17 07:00 97.7 18 92 Room Air 97.7 Physical Exam PHYSICAL EXAM GENERAL: NAD, Alert HEENT: anicteric NECK: Supple, no JVD, LUNGS: Clear HEART: S1S2, ABD: Soft, NT, no organomegaly, no rebound EXT: RT thigh redness, edema,tenderness improving significantly, no fluctuance , rt knee minimal effusion,not warm or erythematous GOLF CADDIE: Alert, oriented x 3, no focal neurologic deficit SKIN: No rash IV: ok Labs Lab Laboratory Tests Test 04/18/17 11:47 04/18/17 16:48 04/18/17 20:34 04/19/17 05:30 Glucose (Fingerstick) 151 mg/dL (70-99) 123 mg/dL (70-99) 192 mg/dL (70-99) White Blood Count 4.5 x10^3/uL (4.0-11.0) Red Blood Count 3.73 x10^6/uL (4.30-5.70) Hemoglobin 11.4 g/dL (13.0-17.5) Hematocrit 34.4 % (39.0-53.0) Mean Corpuscular Volume 92 fL (79-100) Mean Corpuscular Hemoglobin 31 pg (25-35) Mean Corpuscular Hemoglobin Concent 33 g/dL (31-37) Red Cell Distribution Width 13.8 % (11.5-14.5) Platelet Count 225 x10^3/uL (140-400) Neutrophils (%) (Auto) 73 % (31-73) Lymphocytes (%) (Auto) 15 % (24-48) Monocytes (%) (Auto) 7 % (0-9) Eosinophils (%) (Auto) 5 % (0-3) Basophils (%) (Auto) 1 % (0-3) Neutrophils # (Auto) 3.3 x10^3uL (1.8-7.7) Lymphocytes # (Auto) 0.7 x10^3/uL (1.0-4.8) Monocytes # (Auto) 0.3 x10^3/uL (0.0-1.1) Eosinophils # (Auto) 0.2 x10^3/uL (0.0-0.7) Basophils # (Auto) 0.0 x10^3/uL (0.0-0.2) Sodium Level 145 mmol/L (136-145) Potassium Level 3.8 mmol/L (3.5-5.1) Chloride Level 109 mmol/L (98-107) Carbon Dioxide Level 31 mmol/L (21-32) Anion Gap 5 (6-14) Blood Urea Nitrogen 18 mg/dL (8-26) Creatinine 1.3 mg/dL (0.7-1.3) Estimated GFR (Cockcroft-Gault) 54.6 BUN/Creatinine Ratio 14 (6-20) Glucose Level 116 mg/dL (70-99) Calcium Level 8.7 mg/dL (8.5-10.1) Total Bilirubin 0.3 mg/dL (0.2-1.0) Aspartate Amino Transf (AST/SGOT) 18 U/L (15-37) Alanine Aminotransferase (ALT/SGPT) 11 U/L (16-63) Alkaline Phosphatase 136 U/L (46-116) Total Protein 5.8 g/dL (6.4-8.2) Albumin 2.0 g/dL (3.4-5.0) Albumin/Globulin Ratio 0.5 (1.0-1.7) Test 04/19/17 07:13 Glucose (Fingerstick) 136 mg/dL (70-99) Micro reviewed Objective Assessment 1. Cellulitis of right lateral thigh. improving clinically 2. Rt knee does not appear to have any evidence of septic joint,seen by ortho awaiting aspiration today 2. History of group B strep infection. 3. Chronic edema of lower extremities bilaterally. 4. Allergy to PENICILLIN AND ZOSYN causing rash and pruritus.Tolerated cephalosporins and merrem well in the past 5. Acute on chronic diastolic congestive heart failure. 6. Diabetes mellitus. 7. Coronary artery disease. 8. Chronic kidney disease. Plan Plan of Care continue Cefazolin. when ready for discharge change to po keflex for 7 days Local care Leg elevation optimal edema control f/u pcp in 10-14 days AYESHA SANDOVAL MD Apr 19, 2017 09:30
[2017-04-19 10:36] VITALS: BP 154/66
[2017-04-19] MEDS ORDERED: CEPH-264 PO (11:29)
--- NOTE | 2017-04-19 13:59 | PDOC ---
PROGRESS NOTES Chief Complaint Chief Complaint 1. RLE cellulitis, near righ knee 2. 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 Obesity, BMI 34 4, Mild PCM 5, Anasarca 6. Hypernatremia 7, Anemia, normocytic, chronic 8. OA, rt knee History of Present Illness History of Present Illness ortho to aspirate joint today cont cellultis tx pain better RLE echo showed good systolic fxn PT./OT DVT prophy Vitals Vitals Vital Signs Date Time Temp Pulse Resp B/P (MAP) Pulse Ox O2 Delivery O2 Flow Rate FiO2 04/19/17 10:36 97.8 65 18 154/66 (95) 93 Room Air 97.8 Physical Exam General: Alert, Oriented X3, Cooperative, No acute distress Heart: Regular rate, Normal S1, Normal S2, Other (2/6 systolic murmur ) Lungs: Clear Abdomen: Soft, No tenderness, Other (ascites) Extremities: No clubbing, Other (2 edmea, ble , feet are improved to 1+) Skin: No rashes, Other (right lateral thigh erythema) Labs LABS Laboratory Tests Test 04/18/17 16:48 04/18/17 20:34 04/19/17 05:30 04/19/17 07:13 Glucose (Fingerstick) 123 mg/dL (70-99) 192 mg/dL (70-99) 136 mg/dL (70-99) White Blood Count 4.5 x10^3/uL (4.0-11.0) Red Blood Count 3.73 x10^6/uL (4.30-5.70) Hemoglobin 11.4 g/dL (13.0-17.5) Hematocrit 34.4 % (39.0-53.0) Mean Corpuscular Volume 92 fL (79-100) Mean Corpuscular Hemoglobin 31 pg (25-35) Mean Corpuscular Hemoglobin Concent 33 g/dL (31-37) Red Cell Distribution Width 13.8 % (11.5-14.5) Platelet Count 225 x10^3/uL (140-400) Neutrophils (%) (Auto) 73 % (31-73) Lymphocytes (%) (Auto) 15 % (24-48) Monocytes (%) (Auto) 7 % (0-9) Eosinophils (%) (Auto) 5 % (0-3) Basophils (%) (Auto) 1 % (0-3) Neutrophils # (Auto) 3.3 x10^3uL (1.8-7.7) Lymphocytes # (Auto) 0.7 x10^3/uL (1.0-4.8) Monocytes # (Auto) 0.3 x10^3/uL (0.0-1.1) Eosinophils # (Auto) 0.2 x10^3/uL (0.0-0.7) Basophils # (Auto) 0.0 x10^3/uL (0.0-0.2) Sodium Level 145 mmol/L (136-145) Potassium Level 3.8 mmol/L (3.5-5.1) Chloride Level 109 mmol/L (98-107) Carbon Dioxide Level 31 mmol/L (21-32) Anion Gap 5 (6-14) Blood Urea Nitrogen 18 mg/dL (8-26) Creatinine 1.3 mg/dL (0.7-1.3) Estimated GFR (Cockcroft-Gault) 54.6 BUN/Creatinine Ratio 14 (6-20) Glucose Level 116 mg/dL (70-99) Calcium Level 8.7 mg/dL (8.5-10.1) Total Bilirubin 0.3 mg/dL (0.2-1.0) Aspartate Amino Transf (AST/SGOT) 18 U/L (15-37) Alanine Aminotransferase (ALT/SGPT) 11 U/L (16-63) Alkaline Phosphatase 136 U/L (46-116) Total Protein 5.8 g/dL (6.4-8.2) Albumin 2.0 g/dL (3.4-5.0) Albumin/Globulin Ratio 0.5 (1.0-1.7) Prostate Specific Antigen 2.40 ng/mL (0.00-4.00) Test 04/19/17 11:04 Glucose (Fingerstick) 181 mg/dL (70-99) Assessment and Plan Assessmemt and Plan Problems Medical Problems: (1) Cellulitis of right lower extremity Status: Acute Problems: Comment Review of Relevant I have reviewed the following items marina (where applicable) has been applied. Labs Laboratory Tests Test 04/17/17 16:10 04/17/17 20:41 04/18/17 07:54 04/18/17 11:47 Glucose (Fingerstick) 92 mg/dL (70-99) 83 mg/dL (70-99) 101 mg/dL (70-99) 151 mg/dL (70-99) Test 04/18/17 16:48 04/18/17 20:34 04/19/17 05:30 04/19/17 07:13 Glucose (Fingerstick) 123 mg/dL (70-99) 192 mg/dL (70-99) 136 mg/dL (70-99) White Blood Count 4.5 x10^3/uL (4.0-11.0) Red Blood Count 3.73 x10^6/uL (4.30-5.70) Hemoglobin 11.4 g/dL (13.0-17.5) Hematocrit 34.4 % (39.0-53.0) Mean Corpuscular Volume 92 fL (79-100) Mean Corpuscular Hemoglobin 31 pg (25-35) Mean Corpuscular Hemoglobin Concent 33 g/dL (31-37) Red Cell Distribution Width 13.8 % (11.5-14.5) Platelet Count 225 x10^3/uL (140-400) Neutrophils (%) (Auto) 73 % (31-73) Lymphocytes (%) (Auto) 15 % (24-48) Monocytes (%) (Auto) 7 % (0-9) Eosinophils (%) (Auto) 5 % (0-3) Basophils (%) (Auto) 1 % (0-3) Neutrophils # (Auto) 3.3 x10^3uL (1.8-7.7) Lymphocytes # (Auto) 0.7 x10^3/uL (1.0-4.8) Monocytes # (Auto) 0.3 x10^3/uL (0.0-1.1) Eosinophils # (Auto) 0.2 x10^3/uL (0.0-0.7) Basophils # (Auto) 0.0 x10^3/uL (0.0-0.2) Sodium Level 145 mmol/L (136-145) Potassium Level 3.8 mmol/L (3.5-5.1) Chloride Level 109 mmol/L (98-107) Carbon Dioxide Level 31 mmol/L (21-32) Anion Gap 5 (6-14) Blood Urea Nitrogen 18 mg/dL (8-26) Creatinine 1.3 mg/dL (0.7-1.3) Estimated GFR (Cockcroft-Gault) 54.6 BUN/Creatinine Ratio 14 (6-20) Glucose Level 116 mg/dL (70-99) Calcium Level 8.7 mg/dL (8.5-10.1) Total Bilirubin 0.3 mg/dL (0.2-1.0) Aspartate Amino Transf (AST/SGOT) 18 U/L (15-37) Alanine Aminotransferase (ALT/SGPT) 11 U/L (16-63) Alkaline Phosphatase 136 U/L (46-116) Total Protein 5.8 g/dL (6.4-8.2) Albumin 2.0 g/dL (3.4-5.0) Albumin/Globulin Ratio 0.5 (1.0-1.7) Prostate Specific Antigen 2.40 ng/mL (0.00-4.00) Test 04/19/17 11:04 Glucose (Fingerstick) 181 mg/dL (70-99) Laboratory Tests Test 04/18/17 16:48 04/18/17 20:34 04/19/17 05:30 04/19/17 07:13 Glucose (Fingerstick) 123 mg/dL (70-99) 192 mg/dL (70-99) 136 mg/dL (70-99) White Blood Count 4.5 x10^3/uL (4.0-11.0) Red Blood Count 3.73 x10^6/uL (4.30-5.70) Hemoglobin 11.4 g/dL (13.0-17.5) Hematocrit 34.4 % (39.0-53.0) Mean Corpuscular Volume 92 fL (79-100) Mean Corpuscular Hemoglobin 31 pg (25-35) Mean Corpuscular Hemoglobin Concent 33 g/dL (31-37) Red Cell Distribution Width 13.8 % (11.5-14.5) Platelet Count 225 x10^3/uL (140-400) Neutrophils (%) (Auto) 73 % (31-73) Lymphocytes (%) (Auto) 15 % (24-48) Monocytes (%) (Auto) 7 % (0-9) Eosinophils (%) (Auto) 5 % (0-3) Basophils (%) (Auto) 1 % (0-3) Neutrophils # (Auto) 3.3 x10^3uL (1.8-7.7) Lymphocytes # (Auto) 0.7 x10^3/uL (1.0-4.8) Monocytes # (Auto) 0.3 x10^3/uL (0.0-1.1) Eosinophils # (Auto) 0.2 x10^3/uL (0.0-0.7) Basophils # (Auto) 0.0 x10^3/uL (0.0-0.2) Sodium Level 145 mmol/L (136-145) Potassium Level 3.8 mmol/L (3.5-5.1) Chloride Level 109 mmol/L (98-107) Carbon Dioxide Level 31 mmol/L (21-32) Anion Gap 5 (6-14) Blood Urea Nitrogen 18 mg/dL (8-26) Creatinine 1.3 mg/dL (0.7-1.3) Estimated GFR (Cockcroft-Gault) 54.6 BUN/Creatinine Ratio 14 (6-20) Glucose Level 116 mg/dL (70-99) Calcium Level 8.7 mg/dL (8.5-10.1) Total Bilirubin 0.3 mg/dL (0.2-1.0) Aspartate Amino Transf (AST/SGOT) 18 U/L (15-37) Alanine Aminotransferase (ALT/SGPT) 11 U/L (16-63) Alkaline Phosphatase 136 U/L (46-116) Total Protein 5.8 g/dL (6.4-8.2) Albumin 2.0 g/dL (3.4-5.0) Albumin/Globulin Ratio 0.5 (1.0-1.7) Prostate Specific Antigen 2.40 ng/mL (0.00-4.00) Test 04/19/17 11:04 Glucose (Fingerstick) 181 mg/dL (70-99) Microbiology 04/16/17 Blood Culture - Preliminary, Resulted NO GROWTH AFTER 2 DAYS Medications Current Medications Sodium Chloride 1,000 ml @ 1,000 mls/hr 1X ONCE IV Last administered on 04/16t 15:57; Start 04/16/17 at 15:15; Stop 04/16/17 at 16:14; Status DC Ondansetron HCl (Zofran) 4 mg 1X ONCE IV ; Start 04/16/17 at 16:00; Stop at 16:01; Status DC Ondansetron HCl (Zofran) 4 mg PRN Q8HRS PRN IV NAUSEA/VOMITING; Start at 17:30; Stop 04/16/17 at 17:30; Status DC Morphine Sulfate 4 mg PRN Q2HR PRN IV PAIN; Start 04/16/17 at 17:30; Stop at 17:29; Status DC Vancomycin HCl (Vanco Per Pharmacy) 1 each DAILY MC ; Start 04/17/17 at 09:00; Status Cancel Sodium Chloride 1,000 ml @ 100 mls/hr 1X ONCE IV Last administered on 18:39; Start 04/16/17 at 17:30; Stop 04/17/17 at 03:29; Status DC Vancomycin HCl 2 gm/Dextrose/ Sodium Chloride 500 ml @ 250 mls/hr 1X ONCE IV Last administered on 04/16/17 18:26; Start 04/16/17 at 17:30; Stop 04/16/17 at 19:29; Status DC Ondansetron HCl (Zofran) 4 mg PRN Q6HRS PRN IV NAUSEA/VOMITING; Start at 17:30 Insulin Aspart (NovoLOG) 0-9 UNITS TIDWMEALS SQ Last administered on 04/19/17 12:19; Start 04/17/17 at 08:00 Dextrose (Dextrose 50%-Water Syringe) 12.5 gm PRN Q15MIN PRN IV SEE COMMENTS; Start 04/16/17 at 17:30 Morphine Sulfate 2 mg PRN Q2HR PRN IV PAIN; Start 04/16/17 at 17:30 Tamsulosin HCl (Flomax) 0.4 mg QHS PO Last administered on 04/18/17 21:38; Start 04/16/17 at 21:00 Amlodipine Besylate (Norvasc) 10 mg DAILY PO Last administered on 04/19/17 08: 27; Start 04/17/17 at 09:00 Atorvastatin Calcium (Lipitor) 20 mg HS PO Last administered on 04/18/17 21: 39; Start 04/16/17 at 21:00 Hydrochlorothiazide (Hydrodiuril) 25 mg DAILY PO Last administered on 08:27; Start 04/17/17 at 09:00 Lisinopril (Prinivil) 40 mg DAILY PO Last administered on 04/19/17 08:26; Start 04/17/17 at 09:00 Metformin HCl (Glucophage) 1,000 mg BIDWMEALS PO ; Start 04/17/17 at 08:00; Stop 04/17/17 at 09:39; Status DC Metoprolol Tartrate (Lopressor) 12.5 mg BID PO Last administered on 04/19/17 08:29; Start 04/16/17 at 21:00 Nystatin (Mycostatin) 1 jt TID PRN TP RASH; Start 04/16/17 at 17:30 Glipizide (Glucotrol) 10 mg BIDBFRMEAL PO Last administered on 04/19/17 08:29 ; Start 04/17/17 at 07:30 Furosemide (Lasix) 40 mg DAILY IVP Last administered on 04/19/17 08:26; Start 04/17/17 at 09:00 Furosemide (Lasix) 40 mg 1X ONCE IVP Last administered on 04/16/17 18:27; Start 04/16/17 at 17:30; Stop 04/16/17 at 17:39; Status DC Vancomycin HCl 1.5 gm/Dextrose/ Sodium Chloride 500 ml @ 250 mls/hr Q18H ONCE IV Last administered on 04/17/17 12:49; Start 04/17/17 at 12:00; Stop 04/17 at 15:21; Status DC Vancomycin HCl 1 each 1X ONCE MC ; Start 04/18/17 at 05:30; Stop 04/18/17 at 05:30; Status DC Labetalol HCl (Normodyne) 10 mg PRN BID PRN IVP HYPERTENSION, SEE COMMENTS; Start 04/16/17 at 19:00 Pneumococcal Polyvalent Vaccine (Do NOT chart on this placeholder) 1 each 1X ONCE MC ; Start 04/17/17 at 09:00; Stop 04/17/17 at 09:01; Status UNV Pneumococcal Polyvalent Vaccine (Pneumovax 23) 0.5 ml ONCE ONCE VAX IM Last administered on 11/29/17at 12:36; Start 04/17/17 at 09:00; Stop 04/17/17 at 09 :01; Status DC Multi-Ingredient Mouthwash/Gargle (Gi Cocktail Single Dose) 15 ml 1X ONCE SWSW ; Start 04/17/17 at 08:30; Stop 04/17/17 at 08:32; Status DC Famotidine (Pepcid) 20 mg BID PO Last administered on 04/19/17 08:26; Start 04/17/17 at 09:00 Pioglitazone HCl (Actos) 30 mg DAILY PO Last administered on 04/19/17 08:27; Start 04/17/17 at 10:00 Hydralazine HCl (Apresoline Inj) 10 mg PRN Q4HRS PRN IVP ELEVATED BP, SEE COMMENTS; Start 04/17/17 at 12:15 Vancomycin HCl 1.5 gm/Dextrose/ Sodium Chloride 500 ml @ 250 mls/hr Q18H IV ; Start 04/18/17 at 06:00; Stop 04/18/17 at 06:00; Status DC Vancomycin HCl (Vanco Per Pharmacy) 1 each PRN DAILY PRN MC PER PROTOCOL Last administered on 04/17/17 14:34; Start 04/17/17 at 14:45; Stop 04/17/17 at 14 :51; Status DC Lactobacillus Rhamnosus (Culturelle) 1 cap BID PO Last administered on 08:27; Start 04/17/17 at 21:00 Cefazolin Sodium 1 gm/Dextrose 50 ml @ 100 mls/hr Q8HRS IV ; Start 04/17/17 at 15:00; Status Cancel Cefazolin Sodium (Ancef) 1 gm Q8HRS IVP Last administered on 04/19/17 06:00; Start 04/17/17 at 15:00 Ibuprofen (Motrin) 400 mg PRN Q8HRS PRN PO INFLAMMATION; Start 04/17/17 at 19: 45 Ibuprofen (Motrin) 400 mg PRN Q8HRS PRN PO INFLAMMATION; Start 04/17/17 at 20: 45; Stop 04/18/17 at 15:46; Status DC Hydralazine HCl (Apresoline) 50 mg BID PO Last administered on 04/19/17 08:39 ; Start 04/18/17 at 14:30 Bupivacaine HCl (Sensorcaine-Mpf 0.25%) 10 ml 1X ONCE IJ ; Start 04/18/17 at 15:15; Stop 04/18/17 at 15:16; Status DC Methylprednisolone Acetate (DEPO-Medrol 80MG VIAL) 80 mg 1X ONCE IM ; Start at 15:15; Stop 04/18/17 at 15:16; Status DC Active Scripts Active Amlodipine Besylate 10 Mg Tablet 10 Mg PO DAILY Reported Atorvastatin Calcium 20 Mg Tablet 20 Mg PO HS Nystatin 15 Gm Cream..g. 1 Jt TP TID PRN Metoprolol Tartrate 25 Mg Tablet 0.5 Tab PO BID Metformin Hcl 1,000 Mg Tablet 1 Tab PO BID Hydrochlorothiazide Tablet (Hydrochlorothiazide) 25 Mg Tablet 25 Mg PO DAILY Lisinopril 40 Mg Tablet 40 Mg PO DAILY Aspirin 81 Mg Tab.chew 81 Mg PO DAILYAC Glipizide 10 Mg Tablet 1 Tab PO BID Vitals/I & O Vital Sign - Last 24 Hours 04/18/17 04/18/17 04/18/17 04/18/17 15:00 19:00 19:12 20:19 Temp 97.9 98.5 97.7 97.9 98.5 97.7 Pulse 67 64 67 Resp 18 16 18 B/P (MAP) 112/67 (82) 139/63 (88) 112/67 (82) Pulse Ox 94 94 O2 Delivery Room Air Room Air Room Air 04/18/17 04/18/17 04/18/17 04/19/17 21:37 21:38 22:57 03:00 Temp 98.5 98.4 98.5 98.4 Pulse 67 67 65 61 Resp 17 18 B/P (MAP) 112/67 112/67 108/66 (80) 157/84 (108) Pulse Ox 96 96 O2 Delivery Room Air Room Air 04/19/17 04/19/17 04/19/17 04/19/17 07:00 08:26 08:27 08:29 Temp 97.7 97.7 Pulse 61 61 61 61 Resp 18 B/P (MAP) 159/72 (101) 159/72 159/72 159/72 Pulse Ox 92 O2 Delivery Room Air 04/19/17 04/19/17 08:39 10:36 Temp 97.8 97.8 Pulse 61 65 Resp 18 B/P (MAP) 159/72 154/66 (95) Pulse Ox 93 O2 Delivery Room Air Intake and Output 04/18/17 04/18/17 04/19/17 14:59 22:59 06:59 Intake Total 800 ml 1700 ml Balance 800 ml 1700 ml SHAHEEN HOLLAND MD Apr 19, 2017 13:59
--- NOTE | 2017-04-19 14:03 | PDOC3 ---
Discharge Summary Visit Information Date of Admission: Apr 16, 2017 Date of Discharge: Apr 19, 2017 Admitting Diagnosis: cellulitis Final Diagnosis LE cellulitis, near right knee 2. 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 Obesity, BMI 34 4, Mild PCM 5, Anasarca 6. Hypernatremia 7, Anemia, normocytic, chronic 8. OA, rt knee Problems Medical Problems: (1) Cellulitis of right lower extremity Status: Acute Brief Hospital Course Allergies Allergies Coded Allergies Type Severity Reaction Last Updated Verified piperacillin Allergy Intermediate Rash 12/06/16 Yes tazobactam Allergy Intermediate Rash 12/06/16 Yes Vital Signs Vital Signs Date Time Temp Pulse Resp B/P (MAP) Pulse Ox O2 Delivery O2 Flow Rate FiO2 04/19/17 10:36 97.8 65 18 154/66 (95) 93 Room Air 97.8 Lab Results Laboratory Tests Test 04/17/17 16:10 04/17/17 20:41 04/18/17 07:54 04/18/17 11:47 Glucose (Fingerstick) 92 mg/dL (70-99) 83 mg/dL (70-99) 101 mg/dL (70-99) 151 mg/dL (70-99) Test 04/18/17 16:48 04/18/17 20:34 04/19/17 05:30 04/19/17 07:13 Glucose (Fingerstick) 123 mg/dL (70-99) 192 mg/dL (70-99) 136 mg/dL (70-99) White Blood Count 4.5 x10^3/uL (4.0-11.0) Red Blood Count 3.73 x10^6/uL (4.30-5.70) Hemoglobin 11.4 g/dL (13.0-17.5) Hematocrit 34.4 % (39.0-53.0) Mean Corpuscular Volume 92 fL (79-100) Mean Corpuscular Hemoglobin 31 pg (25-35) Mean Corpuscular Hemoglobin Concent 33 g/dL (31-37) Red Cell Distribution Width 13.8 % (11.5-14.5) Platelet Count 225 x10^3/uL (140-400) Neutrophils (%) (Auto) 73 % (31-73) Lymphocytes (%) (Auto) 15 % (24-48) Monocytes (%) (Auto) 7 % (0-9) Eosinophils (%) (Auto) 5 % (0-3) Basophils (%) (Auto) 1 % (0-3) Neutrophils # (Auto) 3.3 x10^3uL (1.8-7.7) Lymphocytes # (Auto) 0.7 x10^3/uL (1.0-4.8) Monocytes # (Auto) 0.3 x10^3/uL (0.0-1.1) Eosinophils # (Auto) 0.2 x10^3/uL (0.0-0.7) Basophils # (Auto) 0.0 x10^3/uL (0.0-0.2) Sodium Level 145 mmol/L (136-145) Potassium Level 3.8 mmol/L (3.5-5.1) Chloride Level 109 mmol/L (98-107) Carbon Dioxide Level 31 mmol/L (21-32) Anion Gap 5 (6-14) Blood Urea Nitrogen 18 mg/dL (8-26) Creatinine 1.3 mg/dL (0.7-1.3) Estimated GFR (Cockcroft-Gault) 54.6 BUN/Creatinine Ratio 14 (6-20) Glucose Level 116 mg/dL (70-99) Calcium Level 8.7 mg/dL (8.5-10.1) Total Bilirubin 0.3 mg/dL (0.2-1.0) Aspartate Amino Transf (AST/SGOT) 18 U/L (15-37) Alanine Aminotransferase (ALT/SGPT) 11 U/L (16-63) Alkaline Phosphatase 136 U/L (46-116) Total Protein 5.8 g/dL (6.4-8.2) Albumin 2.0 g/dL (3.4-5.0) Albumin/Globulin Ratio 0.5 (1.0-1.7) Prostate Specific Antigen 2.40 ng/mL (0.00-4.00) Test 04/19/17 11:04 Glucose (Fingerstick) 181 mg/dL (70-99) Laboratory Tests Test 04/18/17 16:48 04/18/17 20:34 04/19/17 05:30 04/19/17 07:13 Glucose (Fingerstick) 123 mg/dL (70-99) 192 mg/dL (70-99) 136 mg/dL (70-99) White Blood Count 4.5 x10^3/uL (4.0-11.0) Red Blood Count 3.73 x10^6/uL (4.30-5.70) Hemoglobin 11.4 g/dL (13.0-17.5) Hematocrit 34.4 % (39.0-53.0) Mean Corpuscular Volume 92 fL (79-100) Mean Corpuscular Hemoglobin 31 pg (25-35) Mean Corpuscular Hemoglobin Concent 33 g/dL (31-37) Red Cell Distribution Width 13.8 % (11.5-14.5) Platelet Count 225 x10^3/uL (140-400) Neutrophils (%) (Auto) 73 % (31-73) Lymphocytes (%) (Auto) 15 % (24-48) Monocytes (%) (Auto) 7 % (0-9) Eosinophils (%) (Auto) 5 % (0-3) Basophils (%) (Auto) 1 % (0-3) Neutrophils # (Auto) 3.3 x10^3uL (1.8-7.7) Lymphocytes # (Auto) 0.7 x10^3/uL (1.0-4.8) Monocytes # (Auto) 0.3 x10^3/uL (0.0-1.1) Eosinophils # (Auto) 0.2 x10^3/uL (0.0-0.7) Basophils # (Auto) 0.0 x10^3/uL (0.0-0.2) Sodium Level 145 mmol/L (136-145) Potassium Level 3.8 mmol/L (3.5-5.1) Chloride Level 109 mmol/L (98-107) Carbon Dioxide Level 31 mmol/L (21-32) Anion Gap 5 (6-14) Blood Urea Nitrogen 18 mg/dL (8-26) Creatinine 1.3 mg/dL (0.7-1.3) Estimated GFR (Cockcroft-Gault) 54.6 BUN/Creatinine Ratio 14 (6-20) Glucose Level 116 mg/dL (70-99) Calcium Level 8.7 mg/dL (8.5-10.1) Total Bilirubin 0.3 mg/dL (0.2-1.0) Aspartate Amino Transf (AST/SGOT) 18 U/L (15-37) Alanine Aminotransferase (ALT/SGPT) 11 U/L (16-63) Alkaline Phosphatase 136 U/L (46-116) Total Protein 5.8 g/dL (6.4-8.2) Albumin 2.0 g/dL (3.4-5.0) Albumin/Globulin Ratio 0.5 (1.0-1.7) Prostate Specific Antigen 2.40 ng/mL (0.00-4.00) Test 04/19/17 11:04 Glucose (Fingerstick) 181 mg/dL (70-99) Brief Hospital Course Mr. Duenas is a 71 old admit for LE edema, recurrent cellulitis, beefy near right knee ortho, ID consulted, Vanco, redness better, change to keflex at DC ortho to follow PRN echo showed good systolic fxn PT./OT outpatient Discharge Information Condition at Discharge: Improved Follow Up: Weeks Disposition/Orders: D/C to Home Scheduled Amlodipine Besylate (Amlodipine Besylate), 10 MG PO DAILY Aspirin (Aspirin), 81 MG PO DAILYAC, (Reported) Atorvastatin Calcium (Atorvastatin Calcium), 20 MG PO HS, (Reported) Glipizide (Glipizide), 1 TAB PO BID, (Reported) Hydrochlorothiazide (Hydrochlorothiazide Tablet ), 25 MG PO DAILY, (Reported) Lisinopril (Lisinopril), 40 MG PO DAILY, (Reported) Metformin Hcl (Metformin Hcl), 1 TAB PO BID, (Reported) Metoprolol Tartrate (Metoprolol Tartrate), 0.5 TAB PO BID, (Reported) Scheduled PRN Nystatin (Nystatin), 1 MAINOR TP TID PRN for RASH, (Reported) Patient Instructions Patient Instructions > 30 min face to face SHAHEEN HOLLAND MD Apr 19, 2017 14:03
--- NOTE | 2017-04-19 14:39 | PDOC2 ---
CONSULT Date of Consult Date of Consult DATE: 04/19/17 TIME: 14:34 Reason for Consult Reason for Consult: cellulitis, eval for abscess or septic joint. Identification/Chief Complaint Chief Complaint right leg pain and swelling Problems: Source Source: Chart review, Patient History of Present Illness Reason for Visit: Patient known to me from prior hematoma right anterior knee. Now with lymphedema and cellulitis. Some knee area swelling and edema. Intermittent knee pain. Past Medical History Cardiovascular: CAD, CHF, HTN, Hyperlipidemia Pulmonary: No pertinent hx CENTRAL NERVOUS SYSTEM: Periperal neuropathy GI: GERD Heme/Onc: No pertinent hx Hepatobiliary: No pertinent hx Psych: No pertinent hx Musculoskeletal: Osteoarthritis Rheumatologic: No pertinent hx Infectious disease: No pertinent hx ENT: No pertinent hx Renal/: Chronic renal insuff Endocrine: Diabetes Dermatology: No pertinent hx Past Surgical History Past Surgical History: Cholecystectomy, CABG (2012) Family History Family History: Diabetes, Heart Disease, High Cholestrol, Hypertension Social History Quit (2013) ALCOHOL: social Drugs: None Lives: with Family Current Problem List Problem List Problems Medical Problems: (1) Cellulitis of right lower extremity Status: Acute Current Medications Current Medications Current Medications Sodium Chloride 1,000 ml @ 1,000 mls/hr 1X ONCE IV Last administered on 04/16 15:57; Start 04/16/17 at 15:15; Stop 04/16/17 at 16:14; Status DC Ondansetron HCl (Zofran) 4 mg 1X ONCE IV ; Start 04/16/17 at 16:00; Stop at 16:01; Status DC Ondansetron HCl (Zofran) 4 mg PRN Q8HRS PRN IV NAUSEA/VOMITING; Start at 17:30; Stop 04/16/17 at 17:30; Status DC Morphine Sulfate 4 mg PRN Q2HR PRN IV PAIN; Start 04/16/17 at 17:30; Stop at 17:29; Status DC Vancomycin HCl (Vanco Per Pharmacy) 1 each DAILY MC ; Start 04/17/17 at 09:00; Status Cancel Sodium Chloride 1,000 ml @ 100 mls/hr 1X ONCE IV Last administered on 18:39; Start 04/16/17 at 17:30; Stop 04/17/17 at 03:29; Status DC Vancomycin HCl 2 gm/Dextrose/ Sodium Chloride 500 ml @ 250 mls/hr 1X ONCE IV Last administered on 04/16/17 18:26; Start 04/16/17 at 17:30; Stop 04/16/17 at 19:29; Status DC Ondansetron HCl (Zofran) 4 mg PRN Q6HRS PRN IV NAUSEA/VOMITING; Start at 17:30 Insulin Aspart (NovoLOG) 0-9 UNITS TIDWMEALS SQ Last administered on 04/19/17 12:19; Start 04/17/17 at 08:00 Dextrose (Dextrose 50%-Water Syringe) 12.5 gm PRN Q15MIN PRN IV SEE COMMENTS; Start 04/16/17 at 17:30 Morphine Sulfate 2 mg PRN Q2HR PRN IV PAIN; Start 04/16/17 at 17:30 Tamsulosin HCl (Flomax) 0.4 mg QHS PO Last administered on 04/18/17 21:38; Start 04/16/17 at 21:00 Amlodipine Besylate (Norvasc) 10 mg DAILY PO Last administered on 04/19/17 08: 27; Start 04/17/17 at 09:00 Atorvastatin Calcium (Lipitor) 20 mg HS PO Last administered on 04/18/17 21: 39; Start 04/16/17 at 21:00 Hydrochlorothiazide (Hydrodiuril) 25 mg DAILY PO Last administered on 08:27; Start 04/17/17 at 09:00 Lisinopril (Prinivil) 40 mg DAILY PO Last administered on 04/19/17 08:26; Start 04/17/17 at 09:00 Metformin HCl (Glucophage) 1,000 mg BIDWMEALS PO ; Start 04/17/17 at 08:00; Stop 04/17/17 at 09:39; Status DC Metoprolol Tartrate (Lopressor) 12.5 mg BID PO Last administered on 04/19/17 08:29; Start 04/16/17 at 21:00 Nystatin (Mycostatin) 1 jt TID PRN TP RASH; Start 04/16/17 at 17:30 Glipizide (Glucotrol) 10 mg BIDBFRMEAL PO Last administered on 04/19/17 08:29 ; Start 04/17/17 at 07:30 Furosemide (Lasix) 40 mg DAILY IVP Last administered on 04/19/17 08:26; Start 04/17/17 at 09:00 Furosemide (Lasix) 40 mg 1X ONCE IVP Last administered on 04/16/17 18:27; Start 04/16/17 at 17:30; Stop 04/16/17 at 17:39; Status DC Vancomycin HCl 1.5 gm/Dextrose/ Sodium Chloride 500 ml @ 250 mls/hr Q18H ONCE IV Last administered on 04/17/17 12:49; Start 04/17/17 at 12:00; Stop 04/17 at 15:21; Status DC Vancomycin HCl 1 each 1X ONCE MC ; Start 04/18/17 at 05:30; Stop 04/18/17 at 05:30; Status DC Labetalol HCl (Normodyne) 10 mg PRN BID PRN IVP HYPERTENSION, SEE COMMENTS; Start 04/16/17 at 19:00 Pneumococcal Polyvalent Vaccine (Do NOT chart on this placeholder) 1 each 1X ONCE MC ; Start 04/17/17 at 09:00; Stop 04/17/17 at 09:01; Status UNV Pneumococcal Polyvalent Vaccine (Pneumovax 23) 0.5 ml ONCE ONCE VAX IM Last administered on 04/17/17 12:36; Start 04/17/17 at 09:00; Stop 04/17/17 at 09 :01; Status DC Multi-Ingredient Mouthwash/Gargle (Gi Cocktail Single Dose) 15 ml 1X ONCE SWSW ; Start 04/17/17 at 08:30; Stop 04/17/17 at 08:32; Status DC Famotidine (Pepcid) 20 mg BID PO Last administered on 04/19/17 08:26; Start 04/17/17 at 09:00 Pioglitazone HCl (Actos) 30 mg DAILY PO Last administered on 04/19/17 08:27; Start 04/17/17 at 10:00 Hydralazine HCl (Apresoline Inj) 10 mg PRN Q4HRS PRN IVP ELEVATED BP, SEE COMMENTS; Start 04/17/17 at 12:15 Vancomycin HCl 1.5 gm/Dextrose/ Sodium Chloride 500 ml @ 250 mls/hr Q18H IV ; Start 04/18/17 at 06:00; Stop 04/18/17 at 06:00; Status DC Vancomycin HCl (Vanco Per Pharmacy) 1 each PRN DAILY PRN MC PER PROTOCOL Last administered on 04/17/17 14:34; Start 04/17/17 at 14:45; Stop 04/17/17 at 14 :51; Status DC Lactobacillus Rhamnosus (Culturelle) 1 cap BID PO Last administered on 08:27; Start 04/17/17 at 21:00 Cefazolin Sodium 1 gm/Dextrose 50 ml @ 100 mls/hr Q8HRS IV ; Start 04/17/17 at 15:00; Status Cancel Cefazolin Sodium (Ancef) 1 gm Q8HRS IVP Last administered on 04/19/17 06:00; Start 04/17/17 at 15:00 Ibuprofen (Motrin) 400 mg PRN Q8HRS PRN PO INFLAMMATION; Start 04/17/17 at 19: 45 Ibuprofen (Motrin) 400 mg PRN Q8HRS PRN PO INFLAMMATION; Start 04/17/17 at 20: 45; Stop 04/18/17 at 15:46; Status DC Hydralazine HCl (Apresoline) 50 mg BID PO Last administered on 04/19/17 08:39 ; Start 04/18/17 at 14:30 Bupivacaine HCl (Sensorcaine-Mpf 0.25%) 10 ml 1X ONCE IJ ; Start 04/18/17 at 15:15; Stop 04/18/17 at 15:16; Status DC Methylprednisolone Acetate (DEPO-Medrol 80MG VIAL) 80 mg 1X ONCE IM ; Start at 15:15; Stop 04/18/17 at 15:16; Status DC Active Scripts Active Amlodipine Besylate 10 Mg Tablet 10 Mg PO DAILY Reported Atorvastatin Calcium 20 Mg Tablet 20 Mg PO HS Nystatin 15 Gm Cream..g. 1 Jt TP TID PRN Metoprolol Tartrate 25 Mg Tablet 0.5 Tab PO BID Metformin Hcl 1,000 Mg Tablet 1 Tab PO BID Hydrochlorothiazide Tablet (Hydrochlorothiazide) 25 Mg Tablet 25 Mg PO DAILY Lisinopril 40 Mg Tablet 40 Mg PO DAILY Aspirin 81 Mg Tab.chew 81 Mg PO DAILYAC Glipizide 10 Mg Tablet 1 Tab PO BID Allergies Allergies: Coded Allergies: piperacillin (Verified Allergy, Intermediate, Rash, 12/06/16) tazobactam (Verified Allergy, Intermediate, Rash, 12/06/16) Physical Exam General: Alert, Cooperative HEENT: Atraumatic Lungs: Normal air movement Heart: Regular rate Abdomen: Soft Extremities: Other (diffuse bilateral LE edema. Venous stasis. Right leg cellulitis improved from yesterday. Edema around knee joint. Possible small knee effusion on exam.) Vitals VITALS Vital Signs Date Time Temp Pulse Resp B/P (MAP) Pulse Ox O2 Delivery O2 Flow Rate FiO2 04/19/17 10:36 97.8 65 18 154/66 (95) 93 Room Air 97.8 Labs Labs Laboratory Tests Test 04/17/17 16:10 04/17/17 20:41 04/18/17 07:54 04/18/17 11:47 Glucose (Fingerstick) 92 mg/dL (70-99) 83 mg/dL (70-99) 101 mg/dL (70-99) 151 mg/dL (70-99) Test 04/18/17 16:48 04/18/17 20:34 04/19/17 05:30 04/19/17 07:13 Glucose (Fingerstick) 123 mg/dL (70-99) 192 mg/dL (70-99) 136 mg/dL (70-99) White Blood Count 4.5 x10^3/uL (4.0-11.0) Red Blood Count 3.73 x10^6/uL (4.30-5.70) Hemoglobin 11.4 g/dL (13.0-17.5) Hematocrit 34.4 % (39.0-53.0) Mean Corpuscular Volume 92 fL (79-100) Mean Corpuscular Hemoglobin 31 pg (25-35) Mean Corpuscular Hemoglobin Concent 33 g/dL (31-37) Red Cell Distribution Width 13.8 % (11.5-14.5) Platelet Count 225 x10^3/uL (140-400) Neutrophils (%) (Auto) 73 % (31-73) Lymphocytes (%) (Auto) 15 % (24-48) Monocytes (%) (Auto) 7 % (0-9) Eosinophils (%) (Auto) 5 % (0-3) Basophils (%) (Auto) 1 % (0-3) Neutrophils # (Auto) 3.3 x10^3uL (1.8-7.7) Lymphocytes # (Auto) 0.7 x10^3/uL (1.0-4.8) Monocytes # (Auto) 0.3 x10^3/uL (0.0-1.1) Eosinophils # (Auto) 0.2 x10^3/uL (0.0-0.7) Basophils # (Auto) 0.0 x10^3/uL (0.0-0.2) Sodium Level 145 mmol/L (136-145) Potassium Level 3.8 mmol/L (3.5-5.1) Chloride Level 109 mmol/L (98-107) Carbon Dioxide Level 31 mmol/L (21-32) Anion Gap 5 (6-14) Blood Urea Nitrogen 18 mg/dL (8-26) Creatinine 1.3 mg/dL (0.7-1.3) Estimated GFR (Cockcroft-Gault) 54.6 BUN/Creatinine Ratio 14 (6-20) Glucose Level 116 mg/dL (70-99) Calcium Level 8.7 mg/dL (8.5-10.1) Total Bilirubin 0.3 mg/dL (0.2-1.0) Aspartate Amino Transf (AST/SGOT) 18 U/L (15-37) Alanine Aminotransferase (ALT/SGPT) 11 U/L (16-63) Alkaline Phosphatase 136 U/L (46-116) Total Protein 5.8 g/dL (6.4-8.2) Albumin 2.0 g/dL (3.4-5.0) Albumin/Globulin Ratio 0.5 (1.0-1.7) Prostate Specific Antigen 2.40 ng/mL (0.00-4.00) Test 04/19/17 11:04 Glucose (Fingerstick) 181 mg/dL (70-99) Laboratory Tests Test 04/18/17 16:48 04/18/17 20:34 04/19/17 05:30 04/19/17 07:13 Glucose (Fingerstick) 123 mg/dL (70-99) 192 mg/dL (70-99) 136 mg/dL (70-99) White Blood Count 4.5 x10^3/uL (4.0-11.0) Red Blood Count 3.73 x10^6/uL (4.30-5.70) Hemoglobin 11.4 g/dL (13.0-17.5) Hematocrit 34.4 % (39.0-53.0) Mean Corpuscular Volume 92 fL (79-100) Mean Corpuscular Hemoglobin 31 pg (25-35) Mean Corpuscular Hemoglobin Concent 33 g/dL (31-37) Red Cell Distribution Width 13.8 % (11.5-14.5) Platelet Count 225 x10^3/uL (140-400) Neutrophils (%) (Auto) 73 % (31-73) Lymphocytes (%) (Auto) 15 % (24-48) Monocytes (%) (Auto) 7 % (0-9) Eosinophils (%) (Auto) 5 % (0-3) Basophils (%) (Auto) 1 % (0-3) Neutrophils # (Auto) 3.3 x10^3uL (1.8-7.7) Lymphocytes # (Auto) 0.7 x10^3/uL (1.0-4.8) Monocytes # (Auto) 0.3 x10^3/uL (0.0-1.1) Eosinophils # (Auto) 0.2 x10^3/uL (0.0-0.7) Basophils # (Auto) 0.0 x10^3/uL (0.0-0.2) Sodium Level 145 mmol/L (136-145) Potassium Level 3.8 mmol/L (3.5-5.1) Chloride Level 109 mmol/L (98-107) Carbon Dioxide Level 31 mmol/L (21-32) Anion Gap 5 (6-14) Blood Urea Nitrogen 18 mg/dL (8-26) Creatinine 1.3 mg/dL (0.7-1.3) Estimated GFR (Cockcroft-Gault) 54.6 BUN/Creatinine Ratio 14 (6-20) Glucose Level 116 mg/dL (70-99) Calcium Level 8.7 mg/dL (8.5-10.1) Total Bilirubin 0.3 mg/dL (0.2-1.0) Aspartate Amino Transf (AST/SGOT) 18 U/L (15-37) Alanine Aminotransferase (ALT/SGPT) 11 U/L (16-63) Alkaline Phosphatase 136 U/L (46-116) Total Protein 5.8 g/dL (6.4-8.2) Albumin 2.0 g/dL (3.4-5.0) Albumin/Globulin Ratio 0.5 (1.0-1.7) Prostate Specific Antigen 2.40 ng/mL (0.00-4.00) Test 04/19/17 11:04 Glucose (Fingerstick) 181 mg/dL (70-99) Images Images moderate osteoarthritis, especially lateral knee joint. Assessment/Plan Assessment/Plan R Knee osteoarthritis. Bilateral LE edema. RLE cellulitis improving. I aspirated the right knee under sterile technique. The knee joint is dry--no fluid to send. I injected 2 ml 0.25% bupivacaine and 80 mL depo medrol for knee symptom relief and this may help some of the swelling around the knee. Ok for discharge from ortho standpoint. No F/U needed with me. DIRK VALENTINE MD Apr 19, 2017 14:39
== END 2017-04-19 15:00 | disposition home or self-care (01) | DRG 602 ==
LOC: ER 14:24 → 5 SOUTH 18:24
PROVIDERS: ADMIT Internal Medicine; ATTEND Internal Medicine
DX: L03.115 Cellulitis of right lower limb (principal); I50.33 Acute on chronic diastolic (congestive) heart failure; E87.0 Hyperosmolality and hypernatremia; E11.22 Type 2 diabetes mellitus with diabetic chronic kidney disease; E11.42 Type 2 diabetes mellitus with diabetic polyneuropathy; E44.1 Mild protein-calorie malnutrition; I13.0 Hypertensive heart and chronic kidney disease with heart failure and stage 1 through stage 4 chronic kidney disease, or unspecified chronic kidney disease; D64.9 Anemia, unspecified; Z68.34 Body mass index [BMI] 34.0-34.9, adult; E66.01 Morbid (severe) obesity due to excess calories; E78.00 Pure hypercholesterolemia, unspecified; E78.5 Hyperlipidemia, unspecified; I25.10 Atherosclerotic heart disease of native coronary artery without angina pectoris; I48.91 Unspecified atrial fibrillation; I89.0 Lymphedema, not elsewhere classified; K21.9 Gastro-esophageal reflux disease without esophagitis; M17.11 Unilateral primary osteoarthritis, right knee; N18.9 Chronic kidney disease, unspecified; Z82.49 Family history of ischemic heart disease and other diseases of the circulatory system; Z83.3 Family history of diabetes mellitus; Z87.891 Personal history of nicotine dependence; Z88.0 Allergy status to penicillin; Z91.19 Patient's noncompliance with other medical treatment and regimen; Z95.1 Presence of aortocoronary bypass graft; Z96.652 Presence of left artificial knee joint; M19.90 Unspecified osteoarthritis, unspecified site; Z90.49 Acquired absence of other specified parts of digestive tract; I25.2 Old myocardial infarction; L03.116 Cellulitis of left lower limb; Z91.11 Patient's noncompliance with dietary regimen; I87.8 Other specified disorders of veins
CPT/HCPCS: 36415; 71020; 73560; 80048; 80053; 80061; 82962; 83036; 83690; 83880; 84484; 85025; 85610; 85651; 85730; 86140; 87040; 90732; 93005; 93306; 93971; 96365; 96375; G0103; J0690; J1815; J1940; J3370; J7030; 99285-25

== ENCOUNTER 2017-12-19 06:35 | Outpatient (CLI) | payer MEDICARE, OTHER ==
[2017-12-19 07:20] LABS: HEMATOCRIT 33.1 % (39.0-53.0); HEMOGLOBIN 11.2 g/dL (13.0-17.5); MEAN CORPUSCULAR HEMOGLOBIN 32 pg (25-35); MEAN CORPUSCULAR HGB CONC 34 g/dL (31-37); MEAN CORPUSCULAR VOLUME 94 fL (79-100); PLATELET COUNT 235 x10^3/uL (140-400); RED BLOOD COUNT 3.54 x10^6/uL (4.30-5.70); WHITE BLOOD COUNT 5.5 x10^3/uL (4.0-11.0)
[2017-12-19 07:30] LABS: INR 1.3 (0.8-1.1); PARTIAL THROMBOPLASTIN TIME 30 SEC (24-38); PROTHROMBIN TIME PATIENT 15.5 SEC (11.7-14.0)
[2017-12-19 07:49] LABS: ANION GAP 8 (6-14); BLOOD UREA NITROGEN 39 mg/dL (8-26); CALCIUM 9.3 mg/dL (8.5-10.1); CARBON DIOXIDE 24 mmol/L (21-32); CHLORIDE 108 mmol/L (98-107); CREATININE 1.7 mg/dL (0.7-1.3); GFR 39.9; GLUCOSE 108 mg/dL (70-99); POTASSIUM 4.6 mmol/L (3.5-5.1); SODIUM 140 mmol/L (136-145)
[2017-12-19] MEDS: IV NORMAL SALINE 1000ML BAG 1,000 ML IV (08:30)
[2017-12-19] MEDS ORDERED: MIDAZOLAM HCL/PF 2 MG/2 ML VIAL. (08:31)
[2017-12-19] MEDS ORDERED: fentaNYL PF VIAL 100 MCG/2 ML VIAL (08:31)
[2017-12-19] MEDS: IODIXANOL 320 MG/ML 100 ML VIAL. IART (09:12)
[2017-12-19] MEDS: LIDOCAINE 2% 20 ML VIAL. IJ (09:12)
[2017-12-19] MEDS: MIDAZOLAM HCL/PF 2 MG/2 ML VIAL. IV (09:12)
[2017-12-19] MEDS: fentaNYL PF VIAL 100 MCG/2 ML VIAL IV (09:13)
[2017-12-19] MEDS ORDERED: 0.9 % SODIUM CHLORIDE 10 ML DISP.SYRIN. IV (11:30)
[2017-12-19] MEDS ORDERED: NITROGLYCERIN SUBLINGUAL 0.4 MG BOTTLE OF 25. SL (11:30)
== END 2017-12-19 13:30 | disposition home or self-care (01) ==
LOC: CCL 06:35
DX: I25.110 Atherosclerotic heart disease of native coronary artery with unstable angina pectoris (principal); I10 Essential (primary) hypertension; Z87.891 Personal history of nicotine dependence; Z79.01 Long term (current) use of anticoagulants; Z88.0 Allergy status to penicillin; Z88.8 Allergy status to other drugs, medicaments and biological substances; Z95.1 Presence of aortocoronary bypass graft; E78.00 Pure hypercholesterolemia, unspecified; Z90.49 Acquired absence of other specified parts of digestive tract; M19.90 Unspecified osteoarthritis, unspecified site; E11.9 Type 2 diabetes mellitus without complications; Z72.89 Other problems related to lifestyle; Z98.890 Other specified postprocedural states; Z79.82 Long term (current) use of aspirin; Z79.899 Other long term (current) drug therapy; Z79.84 Long term (current) use of oral hypoglycemic drugs
CPT/HCPCS: 36415; 80048; 85027; 85610; 85730; 93459; 99152; 99153; C1769; C1771; C1892; G0269; J1644; J2001; J2250; J3010; J7030

== ENCOUNTER 2018-05-21 13:24 | Inpatient (IN) | payer MEDICARE, OTHER ==
[2018-05-21] VITALS (9 sets, daily range): BP systolic 137–168; BP diastolic 68–99
[~2018-05-21] VITALS: Ht 172.7 cm; Wt 105.8 kg
[~2018-05-21 13:24] MED LIST changes: -AMLO10TA2 PO; +AMLO10TA6 PO; +CARV6.2511 PO; +CEPH-264 PO; -DIGO125T16 PO; +DIGO125T79 PO; +FURO40TA4 PO; +HYDR-2145 PO; -HYDR25TA9 PO; +LISI-130 PO; -LISI40TA PO; +LOSA100T14 PO; -METF-620 PO; +METF10007 PO; -METO50TA2 PO; +METO50TA6 PO; +PIOG30TA41 PO; +POTA20TA82 PO; +SIMV80TA17 PO; -SIMV80TA3 PO; +SPIR50TA4 PO
--- NOTE | 2018-05-21 13:43 | PHYS DOC ---
Past Medical History Past Medical History: Arthritis, CAD, Diabetes-Type II, High Cholesterol, Hypertension, IA Past Surgical History: Cholecystectomy, Coronary Bypass Surgery, Knee Replacement Additional Past Surgical Histo: R KNEE REPLACEMENT, R EYE Smoking: Quit Greater Than 1 Year Alcohol Use: Occasionally Drug Use: None Adult General Chief Complaint Chief Complaint: DYSPNEA/RESPIRATOY DISTRESS HPI HPI Patient is a 72-year-old male who presents to the emergency department as a transfer from the emergency Department and [facility]. He presented there for about 3 hours duration of shortness of breath and some anterior chest discomfort. He states that chest pain feels similar to his prior cardiac episodes. He has not had any significant cough or fever. He had an EKG done at that facility which was concerning to the clinician at that facility for an inferior/lateral ST elevation IA, but review of the EKG both from that facility in the EKG here upon arrival are more consistent with a paced rhythm and secondary repolarization abnormality than acute ischemic changes. At [facility] , the patient had a chest x-ray which was found to be consistent with acute pulmonary edema. He was placed on CPAP and sent to this facility as he was initially hypotensive per their report. Upon arrival the patient is HYPERTENSIVE , and he complains of continued ongoing chest discomfort and shortness of breath. His oxygen saturations in the upper 90s. He has not had any vomiting. The patient was met by cardiology upon arrival. He is currently on heparin drip. He did receive 40 of Lasix, aspirin, heparin bolus and drip, and some morphine at the outside facility. Review of Systems Review of Systems Constitutional: Denies fever or chills [] Eyes: Denies change in visual acuity, redness, or eye pain [] HENT: Denies nasal congestion or sore throat [] Respiratory: Denies cough. Reports shortness of breath.[] Cardiovascular: No additional information not addressed in HPI [] GI: Denies abdominal pain, nausea, vomiting, bloody stools or diarrhea [] : Denies dysuria or hematuria [] Musculoskeletal: Denies back pain or joint pain [] Integument: Denies rash or skin lesions [] Neurologic: Denies headache, focal weakness or sensory changes [] Endocrine: Denies polyuria or polydipsia [] All other systems were reviewed and found to be within normal limits, except as documented in this note. Current Medications Current Medications Current Medications Medications (Trade) Dose Ordered Sig/Cheryl Start Time Stop Time Status Last Admin Dose Admin Furosemide (Lasix) 40 mg 1X ONCE 05/21/18 13:45 05/21/18 13:46 DC 05/21/18 13:54 40 MG Heparin Sodium (Porcine) (Heparin Sodium) 2,700 unit PRN Q6HRS PRN 05/21/18 14:15 Heparin Sodium/ Dextrose 500 ml @ 0 mls/hr CONT PRN 05/21/18 14:15 Morphine Sulfate (Morphine Sulfate) 2 mg 1X ONCE 05/21/18 13:45 05/21/18 13:46 DC Nitroglycerin/ Dextrose 250 ml @ 3 mls/hr 1X ONCE 05/21/18 13:45 05/25/18 01:04 Allergies Allergies Allergies Coded Allergies Type Severity Reaction Last Updated Verified Penicillins Allergy Intermediate 07/18/17 Yes piperacillin Allergy Intermediate Rash 12/06/16 Yes tazobactam Allergy Intermediate Rash 12/06/16 Yes Physical Exam Physical Exam PHYSICAL EXAM: CONSTITUTIONAL: Well developed, well nourished HEAD: normocephalic, atraumatic EENT: PERRL, EOMI. Conjunctivae normal color, sclerae non-icteric; moist mucous membranes. NECK: Supple, non-tender; no meningismus. LUNGS: , mild scattered rales bilaterally, breathing is mildly labored, CPAP is in place, being transitioned to BiPAP. HEART: Regular rate and rhythm, no murmur CHEST: No deformity; non-tender ABDOMEN: The abdomen is soft, and non-tender, no masses or bruits. EXTREM: Normal ROM; no deformity, no calf tenderness. Normal pulses palpable in all extremities. There is 2-3+ bilateral pitting pedal edema, with skin changes consistent with chronic venous stasis. SKIN: No rash; no diaphoresis NEURO: Alert; normal speech and cognition; CN's grossly intact; strength grossly intact without focal deficit. BACK: No CVA TTP. Current Patient Data Vital Signs Vital Signs Date Time Temp Pulse Resp B/P (MAP) Pulse Ox O2 Delivery O2 Flow Rate FiO2 05/21/18 13:45 28 96 BiPAP/CPAP 05/21/18 13:38 96.5 80 208/86 (126) 96.5 Lab Values Laboratory Tests Test 05/21/18 13:31 05/21/18 13:35 05/21/18 13:39 White Blood Count 7.0 x10^3/uL (4.0-11.0) Red Blood Count 3.84 x10^6/uL (4.30-5.70) L Hemoglobin 11.8 g/dL (13.0-17.5) L Hematocrit 36.5 % (39.0-53.0) L Mean Corpuscular Volume 95 fL (79-100) Mean Corpuscular Hemoglobin 31 pg (25-35) Mean Corpuscular Hemoglobin Concent 32 g/dL (31-37) Red Cell Distribution Width 15.7 % (11.5-14.5) H Platelet Count 258 x10^3/uL (140-400) Neutrophils (%) (Auto) 89 % (31-73) H Lymphocytes (%) (Auto) 6 % (24-48) L Monocytes (%) (Auto) 3 % (0-9) Eosinophils (%) (Auto) 2 % (0-3) Basophils (%) (Auto) 1 % (0-3) Neutrophils # (Auto) 6.2 x10^3uL (1.8-7.7) Lymphocytes # (Auto) 0.4 x10^3/uL (1.0-4.8) L Monocytes # (Auto) 0.2 x10^3/uL (0.0-1.1) Eosinophils # (Auto) 0.1 x10^3/uL (0.0-0.7) Basophils # (Auto) 0.0 x10^3/uL (0.0-0.2) Platelet Estimate Pending Sodium Level 144 mmol/L (136-145) Potassium Level 5.9 mmol/L (3.5-5.1) H Chloride Level 111 mmol/L (98-107) H Carbon Dioxide Level 22 mmol/L (21-32) Anion Gap 11 (6-14) 14 mmol/L (6-14) Blood Urea Nitrogen 51 mg/dL (8-26) H Creatinine 2.2 mg/dL (0.7-1.3) H Estimated GFR (Cockcroft-Gault) 29.7 BUN/Creatinine Ratio 23 (6-20) H Glucose Level 295 mg/dL (70-99) H 282 mg/dL (70-99) H Calcium Level 8.9 mg/dL (8.5-10.1) Total Bilirubin Pending Aspartate Amino Transferase (AST) Pending Alanine Aminotransferase (ALT) Pending Alkaline Phosphatase Pending Total Protein Pending Albumin Pending Albumin/Globulin Ratio Pending POC Troponin I 0.17 ng/ml (<0.08) POC Hemoglobin 12.9 g/dL (14-18) L POC Hematocrit 38 % (37-52) POC Sodium 144 mmol/L (135-145) POC Potassium 5.8 mmol/L (3.5-5.0) H POC Chloride 115 mmol/L (98-110) H POC Total CO2 22 mmol/L (23-32) L POC Blood Urea Nitrogen 48 mg/dL (8-26) H POC Creatinine 2.1 mg/dL (0.5-1.4) H POC Ionized Calcium (Craig) 1.15 mmol/L (1.13-1.32) Laboratory Tests 05/21/18 13:31 Laboratory Tests 05/21/18 13:31 05/21/18 13:39 EKG EKG [Ventricular paced rhythm at a rate of 88 bpm with secondary QRS widening in the left axis deviation without acute ischemic ST segment changes.] Radiology/Procedures Radiology/Procedures [] Course & Med Decision Making Course & Med Decision Making Pertinent Labs and Imaging studies reviewed. (See chart for details) [2:10 PM: The patient is feeling significantly better at this time. His blood pressures down to the 140s his oxygen saturations in the upper 90s on BiPAP.The patient's condition remains stable. I spoke with the hospitalist, who accepted the patient to the hospital for further evaluation and treatment.] CRITICAL CARE TIME: 45 Minutes, excluding any procedures and care of other patients. Dragon Disclaimer Dragon Disclaimer This electronic medical record was generated, in whole or in part, using a voice recognition dictation system. Departure Departure Impression: Primary Impression: Pulmonary edema Additional Impressions: Acute CHF Renal insufficiency Disposition: 09 ADMITTED INPATIENT Admitting Physician: Allyson Valdes Condition: GUARDED Referrals: SUHAIL MARTINEZ (PCP) Problem Qualifiers GUILLE HELMS MD May 21, 2018 13:43
[2018-05-21 13:45] LABS: BASO % 1 % (0-3); EOS # 0.1 x10^3/uL (0.0-0.7); EOS % 2 % (0-3); HEMATOCRIT 36.5 % (39.0-53.0); HEMOGLOBIN 11.8 g/dL (13.0-17.5); LYMPH # 0.4 x10^3/uL (1.0-4.8); LYMPH % 6 % (24-48); MEAN CORPUSCULAR HEMOGLOBIN 31 pg (25-35); MEAN CORPUSCULAR HGB CONC 32 g/dL (31-37); MEAN CORPUSCULAR VOLUME 95 fL (79-100); MONO # 0.2 x10^3/uL (0.0-1.1); MONO % 3 % (0-9); NEUT # 6.2 x10^3uL (1.8-7.7); NEUT % 89 % (31-73); PLATELET COUNT 258 x10^3/uL (140-400); RED BLOOD COUNT 3.84 x10^6/uL (4.30-5.70); RED CELL DISTRIBUTION WIDTH 15.7 % (11.5-14.5)
[2018-05-21] MEDS: MORPHINE SULFATE 4 MG/ML VIAL. IV ONE ×2 (13:45→14:40)
[2018-05-21] MEDS ORDERED: MORPHINE SULFATE 4 MG/ML VIAL. IM ONE (13:45)
[2018-05-21] MEDS ORDERED: NITROGLYCERIN PREMIX 250 ML IV ONE (13:45)
[2018-05-21] MEDS ORDERED: FUROSEMIDE 20 MG/2 ML VIAL. IV ONE (13:45)
[2018-05-21 13:55] LABS: CREATININE ISTAT 2.1 mg/dL (0.5-1.4); HEMOGLOBIN ISTAT 12.9 g/dL (14-18); ION CA ISTAT 1.15 mmol/L (1.13-1.32); POTASSIUM ISTAT 5.8 mmol/L (3.5-5.0)
[2018-05-21 14:09] LABS: CALCIUM 8.9 mg/dL (8.5-10.1); CREATININE 2.2 mg/dL (0.7-1.3); GFR 29.7; POTASSIUM 5.9 mmol/L (3.5-5.1)
[2018-05-21 14:13] LABS: ALBUMIN 3.1 g/dL (3.4-5.0); ALBUMIN/GLOBULIN RATIO 0.7 (1.0-1.7); TOTAL BILIRUBIN 0.4 mg/dL (0.2-1.0); TOTAL PROTEIN 7.8 g/dL (6.4-8.2)
[2018-05-21] MEDS ORDERED: HEPARIN 25,000UTS/500ML PREMIX 500 ML IV PRN (14:15)
[2018-05-21] MEDS ORDERED: HEPARIN for IV BOLUS 10,000 UNIT/10 ML VIAL. IV PRN (14:15)
[2018-05-21 14:25] LABS: % BANDS 1 % (0-9); % BASOS 2 % (0-3); % LYMPHS 7 % (24-48); % MONOS 4 % (0-10); % SEGS 86 % (35-66)
[2018-05-21 14:27] LABS: PLT ESTIMATE ADEQUATE (ADEQUATE); POLYCHROMASIA SLIGHT
[2018-05-21 14:28] LABS: TOXIC GRANULATION SLIGHT
--- NOTE | 2018-05-21 14:52 | HP ---
ADMIT DATE: 05/21/2018 CHIEF COMPLAINT: Shortness of breath. HISTORY OF PRESENT ILLNESS: The patient is a pleasant elderly male well known to my service, basically presented to [facility] with shortness of breath and chest pain. They thought he was having an CA. They sent him by ambulance to our facility. He was seen here by Cardiology. They feel like he probably is not having an CA, but he is in fulminant heart failure. He is on BiPAP. We are admitting him to the ICU. He has associated anxiety, rated at 10/10, described as agonizing. PAST MEDICAL HISTORY: CHF, CAD, arthritis, diabetes, hyperlipidemia, myocardial infarction, cholecystectomy, coronary artery bypass, knee replacement. ALLERGIES: PENICILLIN, ZOSYN AND TAZOBACTAM. FAMILY HISTORY: CHF. SOCIAL HISTORY: He does not drink, smoke or take drugs. He is retired. MEDICATIONS: Reviewed. He is on atorvastatin, Coreg, losartan, Aldactone, aspirin, potassium, Lasix, glipizide and Actos. REVIEW OF SYSTEMS: GENERAL: No history of weight change, weakness or fevers. SKIN: No bruising, hair changes or rashes. EYES: No blurred, double or loss of vision. NOSE AND THROAT: No history of nosebleeds, hoarseness or sore throat. HEART: No history of palpitations, chest pain or shortness of breath on exertion. LUNGS: He complains of severe shortness of breath. GASTROINTESTINAL: Denies changes in appetite, nausea, vomiting, diarrhea or constipation. GENITOURINARY: No history of frequency, urgency, hesitancy or nocturia. NEUROLOGIC: Denies history of numbness, tingling, tremor or weakness. PSYCHIATRIC: No history of panic, anxiety or depression. ENDOCRINE: No history of heat or cold intolerance, polyuria or polydipsia. EXTREMITIES: He complains of edema. PHYSICAL EXAMINATION: VITAL SIGNS: Temperature 96, pulse 100, respirations 22, blood pressure 208/86. GENERAL: He is alert, cooperative, on BiPAP, seems extremely ill. He is very short of breath. His legs are massively swollen. HEART: Tachycardic S1, S2 with an S3. LUNGS: Coarse throughout. ABDOMEN: Soft and distended with a fluid wave. EXTREMITIES: 3+ edema. ENDOCRINE: No thyromegaly. LYMPHATICS: No cervical nodes. HEMATOPOIETIC: No bruising. PSYCHIATRIC: He is depressed. LABORATORY DATA: Hemoglobin is 11.8. Electrolytes: Sodium 144, potassium 5.8, chloride 115, bicarbonate 22, BUN 48, creatinine 2.2. Chest x-ray shows heart failure. EKG shows sinus tachycardia with ST changes. BNP level was pending. ASSESSMENT AND PLAN: Acute on chronic systolic and diastolic heart failure. The patient has been admitted. We will start IV Lasix, try to get his home meds going. Consult Cardiology, serial enzymes, serial EKGs, cardiac monitoring in the ICU, full code. Heparin per protocol, p.r.n. morphine, p.r.n. nitro. This is a critically ill patient. Long-term prognosis is guarded at best. I am concerned he may not survive this. GREGG CABA DO DR: SARA/maurice JOB#: [id number] / [id number]
[2018-05-21 15:21] LABS: BASE EXCESS ABG -8 mmol/L (-3-3); HCO3 ABG 18 mmol/L (21-28); PCO2 ABG 40 mmHg (35-46); PO2 ABG 74 mmHg (65-108); SAT O2 ABG 93 % (92-99)
--- NOTE | 2018-05-21 15:36 | EKG ---
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
--- NOTE | 2018-05-21 16:12 | NUR ---
Pt arrived from ED on gurney to ICU bed 109 with admitting diagnosis of pulmonary edema and CHF. Pt currently on BIPAP and complains that he is SOA. elevated HOB. Pt BLE discolored and there are 3 open areas to the LLE that are draining serous fluid. Pictures photographed at this time. Pt denies any chest pain at this time. Pt oriented to room and call light within reach. Will continue to monitor.
--- NOTE | 2018-05-21 16:15 | PDOC2 ---
CONSULT Date of Consult Date of Consult DATE: 05/21/18 TIME: 16:03 Reason for Consult Reason for Consult: Acute systolic heart failure, chest discomfort Referring Physician Referring Physician: Dr. Valdes Identification/Chief Complaint Chief Complaint Shortness of breath Source Source: Chart review, Patient History of Present Illness Reason for Visit: The patient is a 72-year-old male who presented to [facility] emergency room with progressive shortness of breath and some chest pressure. Initial workup showed a normal troponin level and elevated creatinine and glucose levels. Chest x-ray showed pulmonary edema. The patient was placed on CPAP and transferred to [facility]. He was met in the emergency room at [place]. Post diuresis from Lasix given at [place] the patient was feeling better. He continues to be short of breath on a CPAP. He reported some chest pressure with shortness of breath. EKG showed a V paced rhythm. Initial troponin at [place] was 0.17. The patient was treated with further Lasix and is feeling significantly better. He states that his chest pressure has largely resolved. His history is significant for previous myocardial infarction. He had bypass surgery and his most recent catheterization was in December of 2017. It showed a left main lesion of 90% and an occluded LAD. The left circumflex was a small vessel with diffuse disease in the 50% range and was thought to be too small for intervention. There was a occluded vein graft to the left circumflex system. The right coronary was a larger vessel with a proximal occlusion and a patent vein graft. Nuclear scanning from June 2017 showed fixed defects and a ejection fraction of 64%. Echocardiogram from 2017 showed an ejection fraction of 50-55%. Past Medical History Cardiovascular: CAD, CHF, HTN, [place], Hyperlipidemia Pulmonary: No pertinent hx, Bronchitis CENTRAL NERVOUS SYSTEM: Periperal neuropathy GI: GERD Heme/Onc: No pertinent hx Hepatobiliary: No pertinent hx Psych: No pertinent hx Rheumatologic: No pertinent hx Infectious disease: No pertinent hx Renal/: Chronic renal insuff Endocrine: Diabetes Past Surgical History Past Surgical History: Pacemaker, Cholecystectomy, CABG, Total knee replacement Family History Family History: Diabetes, Heart Disease, High Cholestrol, Hypertension Social History Quit ALCOHOL: social Drugs: None Lives: with Family Current Problem List Problem List Problems Medical Problems: (1) Acute CHF Status: Acute (2) Pulmonary edema Status: Acute (3) Renal insufficiency Status: Acute Current Medications Current Medications Current Medications Furosemide (Lasix) 40 mg 1X ONCE IV Last administered on 05/21/18at 13:54; Start 05/21/18 at 13:45; Stop 05/21/18 at 13:46; Status DC Nitroglycerin/ Dextrose 250 ml @ 3 mls/hr 1X ONCE IV Last administered on at 13:54; Start 05/21/18 at 13:45; Stop 05/25/18 at 01:04 Morphine Sulfate (Morphine Sulfate) 2 mg 1X ONCE IV ; Start 05/21/18 at 13:45; Stop 05/21/18 at 13:46; Status DC Morphine Sulfate (Morphine Sulfate) 2 mg 1X ONCE IM ; Start 05/21/18 at 13:45; Stop 05/21/18 at 13:46; Status DC Heparin Sodium/ Dextrose 500 ml @ 0 mls/hr CONT PRN IV SEE I/O RECORD Last administered on 05/21/18at 14:34; Start 05/21/18 at 14:15 Heparin Sodium (Porcine) (Heparin Sodium) 2,700 unit PRN Q6HRS PRN IV FOR UFH LEVEL LESS THAN 0.2; Start 05/21/18 at 14:15 Active Scripts Active Reported Spironolactone 50 Mg Tablet 1 Tab PO DAILY Carvedilol 6.25 Mg Tablet 1 Tab PO BID Furosemide 40 Mg Tablet 40 Mg PO BID Potassium Chloride 20 Meq Tablet.er 20 Meq PO BID Actos (Pioglitazone Hcl) 30 Mg Tablet 1 Tab PO DAILY Losartan Potassium 100 Mg Tablet 100 Mg PO DAILY Atorvastatin Calcium 20 Mg Tablet 20 Mg PO HS Aspirin 81 Mg Tab.chew 81 Mg PO DAILYAC Glipizide 10 Mg Tablet 1 Tab PO DAILY08 Allergies Allergies: Coded Allergies: Penicillins (Verified Allergy, Intermediate, 07/18/17) piperacillin (Verified Allergy, Intermediate, Rash, 12/06/16) tazobactam (Verified Allergy, Intermediate, Rash, 12/06/16) ROS Respiratory: YES: Shortness of breath, SOB with excertion Cardiovascular: yes Other (chest pressure with shortness of breath) Physical Exam General: moderate distress HEENT: Atraumatic Lungs: Other (decreased breath sounds) Heart: Regular rate Abdomen: Normal bowel sounds Vitals VITALS Vital Signs Date Time Temp Pulse Resp B/P (MAP) Pulse Ox O2 Delivery O2 Flow Rate FiO2 05/21/18 14:38 66 20 141/65 (90) 97 BiPAP/CPAP 05/21/18 13:38 96.5 96.5 Labs Labs Laboratory Tests Test 05/21/18 13:31 05/21/18 13:35 05/21/18 13:39 05/21/18 15:15 White Blood Count 7.0 x10^3/uL (4.0-11.0) Red Blood Count 3.84 x10^6/uL (4.30-5.70) Hemoglobin 11.8 g/dL (13.0-17.5) Hematocrit 36.5 % (39.0-53.0) Mean Corpuscular Volume 95 fL (79-100) Mean Corpuscular Hemoglobin 31 pg (25-35) Mean Corpuscular Hemoglobin Concent 32 g/dL (31-37) Red Cell Distribution Width 15.7 % (11.5-14.5) Platelet Count 258 x10^3/uL (140-400) Neutrophils (%) (Auto) 89 % (31-73) Lymphocytes (%) (Auto) 6 % (24-48) Monocytes (%) (Auto) 3 % (0-9) Eosinophils (%) (Auto) 2 % (0-3) Basophils (%) (Auto) 1 % (0-3) Neutrophils # (Auto) 6.2 x10^3uL (1.8-7.7) Lymphocytes # (Auto) 0.4 x10^3/uL (1.0-4.8) Monocytes # (Auto) 0.2 x10^3/uL (0.0-1.1) Eosinophils # (Auto) 0.1 x10^3/uL (0.0-0.7) Basophils # (Auto) 0.0 x10^3/uL (0.0-0.2) Segmented Neutrophils % 86 % (35-66) Band Neutrophils % 1 % (0-9) Lymphocytes % 7 % (24-48) Monocytes % 4 % (0-10) Basophils % 2 % (0-3) Toxic Granulation Slight Platelet Estimate Adequate (ADEQUATE) Polychromasia Slight Sodium Level 144 mmol/L (136-145) Potassium Level 5.9 mmol/L (3.5-5.1) Chloride Level 111 mmol/L (98-107) Carbon Dioxide Level 22 mmol/L (21-32) Anion Gap 11 (6-14) 14 mmol/L (6-14) Blood Urea Nitrogen 51 mg/dL (8-26) Creatinine 2.2 mg/dL (0.7-1.3) Estimated GFR (Cockcroft-Gault) 29.7 BUN/Creatinine Ratio 23 (6-20) Glucose Level 295 mg/dL (70-99) 282 mg/dL (70-99) Calcium Level 8.9 mg/dL (8.5-10.1) Total Bilirubin 0.4 mg/dL (0.2-1.0) Aspartate Amino Transf (AST/SGOT) 27 U/L (15-37) Alanine Aminotransferase (ALT/SGPT) 29 U/L (16-63) Alkaline Phosphatase 173 U/L (46-116) Creatine Kinase 101 U/L (39-308) Creatine Kinase MB (Mass) 3.7 ng/mL (0.0-3.6) Creatine Kinase MB Relative Index 3.7 % (0-4) Total Protein 7.8 g/dL (6.4-8.2) Albumin 3.1 g/dL (3.4-5.0) Albumin/Globulin Ratio 0.7 (1.0-1.7) Bedside Troponin I 0.17 ng/ml (<0.08) Bedside Hemoglobin 12.9 g/dL (14-18) Bedside Hematocrit 38 % (37-52) Bedside Sodium 144 mmol/L (135-145) Bedside Potassium 5.8 mmol/L (3.5-5.0) Bedside Chloride 115 mmol/L (98-110) Bedside Total CO2 22 mmol/L (23-32) Bedside Blood Urea Nitrogen 48 mg/dL (8-26) Bedside Creatinine 2.1 mg/dL (0.5-1.4) Bedside Ionized Calcium (Craig) 1.15 mmol/L (1.13-1.32) O2 Saturation 93 % (92-99) Arterial Blood pH 7.27 (7.35-7.45) Arterial Blood pCO2 at Patient Temp 40 mmHg (35-46) Arterial Blood pO2 at Patient Temp 74 mmHg (65-108) Arterial Blood HCO3 18 mmol/L (21-28) Arterial Blood Base Excess -8 mmol/L (-3-3) FiO2 Laboratory Tests Test 05/21/18 13:31 05/21/18 13:35 05/21/18 13:39 05/21/18 15:15 White Blood Count 7.0 x10^3/uL (4.0-11.0) Red Blood Count 3.84 x10^6/uL (4.30-5.70) Hemoglobin 11.8 g/dL (13.0-17.5) Hematocrit 36.5 % (39.0-53.0) Mean Corpuscular Volume 95 fL (79-100) Mean Corpuscular Hemoglobin 31 pg (25-35) Mean Corpuscular Hemoglobin Concent 32 g/dL (31-37) Red Cell Distribution Width 15.7 % (11.5-14.5) Platelet Count 258 x10^3/uL (140-400) Neutrophils (%) (Auto) 89 % (31-73) Lymphocytes (%) (Auto) 6 % (24-48) Monocytes (%) (Auto) 3 % (0-9) Eosinophils (%) (Auto) 2 % (0-3) Basophils (%) (Auto) 1 % (0-3) Neutrophils # (Auto) 6.2 x10^3uL (1.8-7.7) Lymphocytes # (Auto) 0.4 x10^3/uL (1.0-4.8) Monocytes # (Auto) 0.2 x10^3/uL (0.0-1.1) Eosinophils # (Auto) 0.1 x10^3/uL (0.0-0.7) Basophils # (Auto) 0.0 x10^3/uL (0.0-0.2) Segmented Neutrophils % 86 % (35-66) Band Neutrophils % 1 % (0-9) Lymphocytes % 7 % (24-48) Monocytes % 4 % (0-10) Basophils % 2 % (0-3) Toxic Granulation Slight Platelet Estimate Adequate (ADEQUATE) Polychromasia Slight Sodium Level 144 mmol/L (136-145) Potassium Level 5.9 mmol/L (3.5-5.1) Chloride Level 111 mmol/L (98-107) Carbon Dioxide Level 22 mmol/L (21-32) Anion Gap 11 (6-14) 14 mmol/L (6-14) Blood Urea Nitrogen 51 mg/dL (8-26) Creatinine 2.2 mg/dL (0.7-1.3) Estimated GFR (Cockcroft-Gault) 29.7 BUN/Creatinine Ratio 23 (6-20) Glucose Level 295 mg/dL (70-99) 282 mg/dL (70-99) Calcium Level 8.9 mg/dL (8.5-10.1) Total Bilirubin 0.4 mg/dL (0.2-1.0) Aspartate Amino Transf (AST/SGOT) 27 U/L (15-37) Alanine Aminotransferase (ALT/SGPT) 29 U/L (16-63) Alkaline Phosphatase 173 U/L (46-116) Creatine Kinase 101 U/L (39-308) Creatine Kinase MB (Mass) 3.7 ng/mL (0.0-3.6) Creatine Kinase MB Relative Index 3.7 % (0-4) Total Protein 7.8 g/dL (6.4-8.2) Albumin 3.1 g/dL (3.4-5.0) Albumin/Globulin Ratio 0.7 (1.0-1.7) Bedside Troponin I 0.17 ng/ml (<0.08) Bedside Hemoglobin 12.9 g/dL (14-18) Bedside Hematocrit 38 % (37-52) Bedside Sodium 144 mmol/L (135-145) Bedside Potassium 5.8 mmol/L (3.5-5.0) Bedside Chloride 115 mmol/L (98-110) Bedside Total CO2 22 mmol/L (23-32) Bedside Blood Urea Nitrogen 48 mg/dL (8-26) Bedside Creatinine 2.1 mg/dL (0.5-1.4) Bedside Ionized Calcium (Craig) 1.15 mmol/L (1.13-1.32) O2 Saturation 93 % (92-99) Arterial Blood pH 7.27 (7.35-7.45) Arterial Blood pCO2 at Patient Temp 40 mmHg (35-46) Arterial Blood pO2 at Patient Temp 74 mmHg (65-108) Arterial Blood HCO3 18 mmol/L (21-28) Arterial Blood Base Excess -8 mmol/L (-3-3) FiO2 Images Images Chest x-ray from [facility] showed multifocal interstitial infiltrates and a small pleural effusion Assessment/Plan Assessment/Plan 1. Acute heart failure. Patient is improved post diuresis and on CPAP. We will continue medications and monitor his lab since he is complaining level is 2.2. We'll check an echocardiogram for LV function. We will rule out for myocardial infarction. 2. History of bypass surgery. Last catheterization as noted above showed patent AGUSTIN graft to the LAD and a patent saphenous vein graft to the right coronary artery. The left circumflex was small vessel with diffuse moderate disease which were thought to small to intervene upon. After treatment of his heart failure the patient's chest pressure has largely resolved. Initial troponins have not been elevated. EKG shows a V paced rhythm. At this time will continue medications as above. We'll rule out for myocardial infarction. We have heparinized the patient this time. 3. Permanent pacemaker. Will interrogate the device. 4. Poorly controlled diabetes with an initial glucose level as above 300. As per the hospitalist service. 5. Chronic kidney disease. Creatinine of 2.1. Potassium elevated at 5.8. Again monitoring and treatment as per the primary service. Thank you for allowing us to participate in the care of your patient. FAUSTO YOUNG MD May 21, 2018 16:15
[2018-05-21] MEDS: ASPIRIN ENTERIC COATED 325 MG TABLET.DR. PO SCH (17:00)
[2018-05-21] MEDS ORDERED: LOSARTAN POTASSIUM 50 MG TABLET. PO SCH (18:00)
[2018-05-21] MEDS ORDERED: MORPHINE SULFATE 4 MG/ML VIAL. IV PRN (18:15)
[2018-05-21] MEDS ORDERED: ATORVASTATIN CALCIUM 20 MG TABLET PO SCH (21:00)
[2018-05-21] MEDS ORDERED: GLIPIZIDE PO SCH (21:00)
[2018-05-21] MEDS: ATORVASTATIN CALCIUM 20 MG TABLET PO SCH (21:01)
[2018-05-21] MEDS ORDERED: ALBUTEROL SULFATE 2.5 MG/3 ML NEBU. NEB PRN (21:15)
[2018-05-21] MEDS: NITROGLYCERIN PREMIX 250 ML IV PRN (21:51)
[2018-05-22] VITALS (18 sets, daily range): BP systolic 108–159; BP diastolic 58–77
[2018-05-22] MEDS ORDERED: ASPIRIN CHEWABLE 81 MG TABLET. PO SCH (07:30)
[2018-05-22] MEDS ORDERED: POTASSIUM CHLORIDE 20 MEQ TABLET.ER. PO SCH (08:00)
[2018-05-22 08:11] LABS: HEMATOCRIT 29.7 % (39.0-53.0); RED BLOOD COUNT 3.22 x10^6/uL (4.30-5.70); RED CELL DISTRIBUTION WIDTH 14.9 % (11.5-14.5)
--- NOTE | 2018-05-22 08:21 | EKG ---
[facility] [address] [place] [address] Test Date: 2018-05-22 Test Time: 08:15:12 Pat Name: RASHMI PEPE Department: Room: 109 1 Gender: M Court Liaison: [facility] : 1945 Requested By: FAUSTO YOUNG Order Number: [id number] Reading MD: Measurements Intervals [place] Rate: 68 P: -39 ID: [id number] QRS: -64 QRSD: 182 T: 126 QT: 430 QTc: 457 Interpretive Statements SINUS RHYTHM PROLONGED ID INTERVAL ABNORMAL LEFT AXIS DEVIATION NON SPECIFIC INTRAVENTRICULAR BLOCK QRS(T) CONTOUR ABNORMALITY CONSISTENT WITH ANTERIOR INFARCT PROBABLY OLD CONSISTENT WITH INFEROLATERAL INFARCT PROBABLY OLD ABNORMAL ECG RI6.01 Unconfirmed report Compared to ECG 07/18/2017 16:37:30 Myocardial infarct finding now present Left anterior fascicular block no longer present Right bundle-branch block no longer present Bifascicular block no longer present Right ventricular hypertrophy no longer present Early repolarization no longer present
[2018-05-22 08:45] LABS: CALCIUM 8.4 mg/dL (8.5-10.1); CREATININE 1.8 mg/dL (0.7-1.3); GFR 37.4; MAGNESIUM 2.6 mg/dL (1.8-2.4); POTASSIUM 4.9 mmol/L (3.5-5.1)
[2018-05-22 08:47] LABS: CHOLESTEROL/HDL RATIO 1.7
[2018-05-22] MEDS ORDERED: FUROSEMIDE 40 MG TABLET. PO SCH (09:00)
[2018-05-22] MEDS ORDERED: PIOGLITAZONE 15 MG TABLET. PO SCH (09:00)
[2018-05-22] MEDS ORDERED: NON FORMULARY ITEM (Spironolactone 1 TAB) PO SCH (09:00)
[2018-05-22] MEDS: ASPIRIN ENTERIC COATED 325 MG TABLET.DR. PO SCH (09:20)
[2018-05-22] MEDS ORDERED: DOCUSATE SODIUM 100 MG CAPSULE. PO PRN (09:30)
[2018-05-22] MEDS ORDERED: ONDANSETRON PF 4 MG/2 ML VIAL. IV PRN (09:30)
[2018-05-22] MEDS ORDERED: hydrALAZINE 20 MG/ML VIAL. IVP PRN (09:30)
[2018-05-22] MEDS ORDERED: traMADol 50 MG TABLET PO PRN (09:30)
[2018-05-22] MEDS ORDERED: ACETAMINOPHEN 325 MG TABLET. PO PRN (09:30)
--- NOTE | 2018-05-22 09:44 | PDOC ---
CARDIO Progress Notes Date and Time Date of Service 05/22/2018 Time of Evaluation 0930 Subjective Subjective: No Chest Pain, No shortness of breath, No Palpitations Vitals Vitals Vital Signs Date Time Temp Pulse Resp B/P (MAP) Pulse Ox O2 Delivery O2 Flow Rate FiO2 05/22/18 06:00 75 26 108/69 (82) 96 Venturi Mask 05/22/18 04:00 98.1 98.1 05/21/18 19:00 6.0 Weight Weight [ ] Input and Output Intake and Output Intake and Output 05/22/18 07:01 Intake Total 926 ml Output Total 3405 ml Balance -2479 ml Intake Oral 530 ml IV Total 396 ml Output Urine Total 3405 ml Laboratory Labs Laboratory Tests Test 05/21/18 13:31 05/21/18 13:35 05/21/18 13:39 05/21/18 15:15 White Blood Count 7.0 x10^3/uL (4.0-11.0) Red Blood Count 3.84 x10^6/uL (4.30-5.70) Hemoglobin 11.8 g/dL (13.0-17.5) Hematocrit 36.5 % (39.0-53.0) Mean Corpuscular Volume 95 fL (79-100) Mean Corpuscular Hemoglobin 31 pg (25-35) Mean Corpuscular Hemoglobin Concent 32 g/dL (31-37) Red Cell Distribution Width 15.7 % (11.5-14.5) Platelet Count 258 x10^3/uL (140-400) Neutrophils (%) (Auto) 89 % (31-73) Lymphocytes (%) (Auto) 6 % (24-48) Monocytes (%) (Auto) 3 % (0-9) Eosinophils (%) (Auto) 2 % (0-3) Basophils (%) (Auto) 1 % (0-3) Neutrophils # (Auto) 6.2 x10^3uL (1.8-7.7) Lymphocytes # (Auto) 0.4 x10^3/uL (1.0-4.8) Monocytes # (Auto) 0.2 x10^3/uL (0.0-1.1) Eosinophils # (Auto) 0.1 x10^3/uL (0.0-0.7) Basophils # (Auto) 0.0 x10^3/uL (0.0-0.2) Segmented Neutrophils % 86 % (35-66) Band Neutrophils % 1 % (0-9) Lymphocytes % 7 % (24-48) Monocytes % 4 % (0-10) Basophils % 2 % (0-3) Toxic Granulation Slight Platelet Estimate Adequate (ADEQUATE) Polychromasia Slight Sodium Level 144 mmol/L (136-145) Potassium Level 5.9 mmol/L (3.5-5.1) Chloride Level 111 mmol/L (98-107) Carbon Dioxide Level 22 mmol/L (21-32) Anion Gap 11 (6-14) 14 mmol/L (6-14) Blood Urea Nitrogen 51 mg/dL (8-26) Creatinine 2.2 mg/dL (0.7-1.3) Estimated GFR (Cockcroft-Gault) 29.7 BUN/Creatinine Ratio 23 (6-20) Glucose Level 295 mg/dL (70-99) 282 mg/dL (70-99) Calcium Level 8.9 mg/dL (8.5-10.1) Total Bilirubin 0.4 mg/dL (0.2-1.0) Aspartate Amino Transf (AST/SGOT) 27 U/L (15-37) Alanine Aminotransferase (ALT/SGPT) 29 U/L (16-63) Alkaline Phosphatase 173 U/L (46-116) Creatine Kinase 101 U/L (39-308) Creatine Kinase MB (Mass) 3.7 ng/mL (0.0-3.6) Creatine Kinase MB Relative Index 3.7 % (0-4) Total Protein 7.8 g/dL (6.4-8.2) Albumin 3.1 g/dL (3.4-5.0) Albumin/Globulin Ratio 0.7 (1.0-1.7) Bedside Troponin I 0.17 ng/ml (<0.08) Bedside Hemoglobin 12.9 g/dL (14-18) Bedside Hematocrit 38 % (37-52) Bedside Sodium 144 mmol/L (135-145) Bedside Potassium 5.8 mmol/L (3.5-5.0) Bedside Chloride 115 mmol/L (98-110) Bedside Total CO2 22 mmol/L (23-32) Bedside Blood Urea Nitrogen 48 mg/dL (8-26) Bedside Creatinine 2.1 mg/dL (0.5-1.4) Bedside Ionized Calcium (Craig) 1.15 mmol/L (1.13-1.32) O2 Saturation 93 % (92-99) Arterial Blood pH 7.27 (7.35-7.45) Arterial Blood pCO2 at Patient Temp 40 mmHg (35-46) Arterial Blood pO2 at Patient Temp 74 mmHg (65-108) Arterial Blood HCO3 18 mmol/L (21-28) Arterial Blood Base Excess -8 mmol/L (-3-3) FiO2 Test 05/21/18 17:10 05/21/18 20:55 05/22/18 08:00 Troponin I Quantitative 14.838 ng/mL (0.000-0.055) 10.255 ng/mL (0.000-0.055) Heparin Anti-Xa Act, Unfractionated 0.69 IU/mL (0.30-0.70) 0.23 IU/mL (0.30-0.70) White Blood Count 6.0 x10^3/uL (4.0-11.0) Red Blood Count 3.22 x10^6/uL (4.30-5.70) Hemoglobin 10.0 g/dL (13.0-17.5) Hematocrit 29.7 % (39.0-53.0) Mean Corpuscular Volume 92 fL (79-100) Mean Corpuscular Hemoglobin 31 pg (25-35) Mean Corpuscular Hemoglobin Concent 34 g/dL (31-37) Red Cell Distribution Width 14.9 % (11.5-14.5) Platelet Count 202 x10^3/uL (140-400) Sodium Level 146 mmol/L (136-145) Potassium Level 4.9 mmol/L (3.5-5.1) Chloride Level 114 mmol/L (98-107) Carbon Dioxide Level 24 mmol/L (21-32) Anion Gap 8 (6-14) Blood Urea Nitrogen 45 mg/dL (8-26) Creatinine 1.8 mg/dL (0.7-1.3) Estimated GFR (Cockcroft-Gault) 37.4 Glucose Level 116 mg/dL (70-99) Calcium Level 8.4 mg/dL (8.5-10.1) Magnesium Level 2.6 mg/dL (1.8-2.4) Triglycerides Level 60 mg/dL (0-150) Cholesterol Level 96 mg/dL (0-200) LDL Cholesterol, Calculated 29 mg/dL (0-100) VLDL Cholesterol, Calculated 12 mg/dL (0-40) Non-HDL Cholesterol Calculated 41 mg/dL (0-129) HDL Cholesterol 55 mg/dL (40-60) Cholesterol/HDL Ratio 1.7 Physical Exam HEENT: Neck Supple W Full Motion Chest: Symmetric LUNGS: Clear to Auscultation Heart: S1S2, RRR (paced) Abdomen: Soft N/T Extremities: No Calf Tenderness Neurology: alert, oriented, follow commands Assessment Assessment NSTEMI: peaked trop 14 Currently CP free CAD HARMEET on CKD: Cr 1.8 better K better Hemoptysis with prior pneumonia Pulmonary following Acute diastolic/systolic CHF: improving DM2 Recommendations 1. C today risks and benefits discussed agreeable to proceed. 2. Secondary prevention measures to be reevaluated pending [facility] results. 3, Lasix therapy. Bipap KELLY TAYLOR APRN May 22, 2018 09:44
[2018-05-22] MEDS ORDERED: MORPHINE SULFATE 4 MG/ML VIAL. IV PRN (09:45)
[2018-05-22] MEDS ORDERED: IV 1/2 NORMAL SALINE 1,000 ML IV ONE (10:00)
--- NOTE | 2018-05-22 11:06 | CARD ---
MR#: [id number] Date of Study: 05/22/2018 Ordering Physician: FAUSTO YOUNG, Referring Physician: Holger PANTOJA: Alondra Parnelldanitaisabel APPROVED REPORT EXAM: Two-dimensional and M-mode echocardiogram with Doppler and color Doppler. Other Information Quality : AverageHR: 69bpm INDICATION Congestive Heart Failure RISK FACTORS Hypertension Hyperlipidemia Diabetes Previous smoker 2D DIMENSIONS RVDd3.9 (2.9-3.5cm)Left Atrium(2D)4.4 (1.6-4.0cm) IVSd1.2 (0.7-1.1cm)Aortic Root(2D)3.2 (2.0-3.7cm) LVDd6.6 (3.9-5.9cm)LVOT Diameter2.6 (1.8-2.4cm) PWd1.4 (0.7-1.1cm)LVDs3.2 (2.5-4.0cm) FS (%) 51.9 %SV183.6 ml LVEF(%)82.0 (>50%) Aortic Valve AoV Peak Toan.164.1cm/sAoV VTI30.3cm AO Peak GR.10.8mmHgLVOT VTI 17.81cm AO Mean GR.5mmHg Mitral Valve MV E Xvftddxs14.5cm/sMV DECEL [id number] MV A Hqckhhrm54.8cm/sE/A Ratio1.0 TDI Lateral E' P. V9.65cm/sMedial E' P. V4.96cm/s E/Lateral E'9.9E/Medial E'19.3 Tricuspid Valve TR P. [id number]/sRAP [id number] TR Peak Gr.17veOuOQTH10iwRx Pulmonary Vein S1 Glcgsphx88.2cm/sS2 Cfjkozty01.61cm/s D2 Cbipapyv53.6cm/s LEFT VENTRICLE The Left Ventricle is moderately dilated. There is moderate concentric left ventricular hypertrophy. The systolic function is mildly impaired. The Ejection Fraction is 40-45%. Technically difficult imag es. The basal to distal inferior wall is moderately hypokinetic. Septal motion suggestive of conducti on defect. Transmitral Doppler flow pattern is Grade II-pseudonormal filling dynamics. RIGHT VENTRICLE The right ventricle is borderline dilated. There is normal right ventricular wall thickness. The righ t ventricular systolic function is normal. There is a pacemaker lead in the right ventricle. ATRIA The left atrium size is normal. The right atrium is mildly dilated. The interatrial septum is intact with no evidence for an atrial septal defect or patent foramen ovale as noted on 2-D or Doppler imagi ng. AORTIC VALVE Cannot rule out bicuspid aortic valve. Doppler and Color Flow revealed no significant aortic regurgit ation. There is no significant aortic valvular stenosis. MITRAL VALVE The mitral valve is normal in structure and function. There is no evidence of mitral valve prolapse. There is no mitral valve stenosis. Doppler and Color Flow revealed no mitral valve regurgitation note d. TRICUSPID VALVE The tricuspid valve is not well visualized. Doppler and Color Flow revealed trace tricuspid regurgita tion. There is no tricuspid valve stenosis. PULMONIC VALVE The pulmonic valve is not well visualized. Doppler and Color Flow revealed trace pulmonic valvular re gurgitation. There is no pulmonic valvular stenosis. GREAT VESSELS The aortic root is normal in size. Normal pulmonary venous flow (Doppler). The IVC is dilated and col lapses <50% with inspiration. PERICARDIAL EFFUSION There is moderate left pleural effusion. There is a trace pericardial effusion. Critical Notification Critical Value: No <Conclusion> The systolic function is mildly impaired. The Ejection Fraction is 40-45%. Technically difficult imag es. The basal to distal inferior wall is moderately hypokinetic. Septal motion suggestive of conduction d efect. There is a pacemaker lead in the right ventricle. Cannot rule out bicuspid aortic valve. There is moderate left pleural effusion. Signed by : Vicente Sheridan, Electronically Approved : 05/22/2018 11:05:15
[2018-05-22] MEDS ORDERED: LIDOCAINE 1% PF 2 ML VIAL. ONE (11:40)
--- NOTE | 2018-05-22 12:27 | PDOC ---
PROGRESS NOTES Chief Complaint Chief Complaint dyspnea, 2/2 acute on chronic systolic CHF EF 40%, NSTEMI with chest pain, high trop h/o CAD with CABG dm2 HLD ppm left pleural effusion recent PNA with hemoptysis HARMEET, vasomotor , ckd3 HTN PLAN: fu with card, on heparin drip, trop 14, 10. Cath today lasix x1 pulm consult cont home meds ssi echo done add cough meds, albuterol prn check CXR History of Present Illness History of Present Illness no Fever, chills came for chest substernal pain, sob, trop 14. recent PNA, has hemoptysis cr better to 1.8 from 2.2 Vitals Vitals Vital Signs Date Time Temp Pulse Resp B/P (MAP) Pulse Ox O2 Delivery O2 Flow Rate FiO2 05/22/18 06:00 75 26 108/69 (82) 96 Venturi Mask 05/22/18 04:00 98.1 98.1 05/21/18 19:00 6.0 Physical Exam General: Alert, Oriented X3, Cooperative, moderate distress Heart: Regular rate, Normal S1, Normal S2 Lungs: Other (bl decreased bs) Abdomen: Normal bowel sounds Extremities: No clubbing, No cyanosis, No edema Labs LABS Laboratory Tests Test 05/21/18 13:31 05/21/18 13:35 05/21/18 13:39 05/21/18 15:15 White Blood Count 7.0 x10^3/uL (4.0-11.0) Red Blood Count 3.84 x10^6/uL (4.30-5.70) Hemoglobin 11.8 g/dL (13.0-17.5) Hematocrit 36.5 % (39.0-53.0) Mean Corpuscular Volume 95 fL (79-100) Mean Corpuscular Hemoglobin 31 pg (25-35) Mean Corpuscular Hemoglobin Concent 32 g/dL (31-37) Red Cell Distribution Width 15.7 % (11.5-14.5) Platelet Count 258 x10^3/uL (140-400) Neutrophils (%) (Auto) 89 % (31-73) Lymphocytes (%) (Auto) 6 % (24-48) Monocytes (%) (Auto) 3 % (0-9) Eosinophils (%) (Auto) 2 % (0-3) Basophils (%) (Auto) 1 % (0-3) Neutrophils # (Auto) 6.2 x10^3uL (1.8-7.7) Lymphocytes # (Auto) 0.4 x10^3/uL (1.0-4.8) Monocytes # (Auto) 0.2 x10^3/uL (0.0-1.1) Eosinophils # (Auto) 0.1 x10^3/uL (0.0-0.7) Basophils # (Auto) 0.0 x10^3/uL (0.0-0.2) Segmented Neutrophils % 86 % (35-66) Band Neutrophils % 1 % (0-9) Lymphocytes % 7 % (24-48) Monocytes % 4 % (0-10) Basophils % 2 % (0-3) Toxic Granulation Slight Platelet Estimate Adequate (ADEQUATE) Polychromasia Slight Sodium Level 144 mmol/L (136-145) Potassium Level 5.9 mmol/L (3.5-5.1) Chloride Level 111 mmol/L (98-107) Carbon Dioxide Level 22 mmol/L (21-32) Anion Gap 11 (6-14) 14 mmol/L (6-14) Blood Urea Nitrogen 51 mg/dL (8-26) Creatinine 2.2 mg/dL (0.7-1.3) Estimated GFR (Cockcroft-Gault) 29.7 BUN/Creatinine Ratio 23 (6-20) Glucose Level 295 mg/dL (70-99) 282 mg/dL (70-99) Calcium Level 8.9 mg/dL (8.5-10.1) Total Bilirubin 0.4 mg/dL (0.2-1.0) Aspartate Amino Transf (AST/SGOT) 27 U/L (15-37) Alanine Aminotransferase (ALT/SGPT) 29 U/L (16-63) Alkaline Phosphatase 173 U/L (46-116) Creatine Kinase 101 U/L (39-308) Creatine Kinase MB (Mass) 3.7 ng/mL (0.0-3.6) Creatine Kinase MB Relative Index 3.7 % (0-4) Total Protein 7.8 g/dL (6.4-8.2) Albumin 3.1 g/dL (3.4-5.0) Albumin/Globulin Ratio 0.7 (1.0-1.7) Bedside Troponin I 0.17 ng/ml (<0.08) Bedside Hemoglobin 12.9 g/dL (14-18) Bedside Hematocrit 38 % (37-52) Bedside Sodium 144 mmol/L (135-145) Bedside Potassium 5.8 mmol/L (3.5-5.0) Bedside Chloride 115 mmol/L (98-110) Bedside Total CO2 22 mmol/L (23-32) Bedside Blood Urea Nitrogen 48 mg/dL (8-26) Bedside Creatinine 2.1 mg/dL (0.5-1.4) Bedside Ionized Calcium (Craig) 1.15 mmol/L (1.13-1.32) O2 Saturation 93 % (92-99) Arterial Blood pH 7.27 (7.35-7.45) Arterial Blood pCO2 at Patient Temp 40 mmHg (35-46) Arterial Blood pO2 at Patient Temp 74 mmHg (65-108) Arterial Blood HCO3 18 mmol/L (21-28) Arterial Blood Base Excess -8 mmol/L (-3-3) FiO2 Test 05/21/18 17:10 05/21/18 20:55 05/22/18 08:00 Troponin I Quantitative 14.838 ng/mL (0.000-0.055) 10.255 ng/mL (0.000-0.055) Heparin Anti-Xa Act, Unfractionated 0.69 IU/mL (0.30-0.70) 0.23 IU/mL (0.30-0.70) White Blood Count 6.0 x10^3/uL (4.0-11.0) Red Blood Count 3.22 x10^6/uL (4.30-5.70) Hemoglobin 10.0 g/dL (13.0-17.5) Hematocrit 29.7 % (39.0-53.0) Mean Corpuscular Volume 92 fL (79-100) Mean Corpuscular Hemoglobin 31 pg (25-35) Mean Corpuscular Hemoglobin Concent 34 g/dL (31-37) Red Cell Distribution Width 14.9 % (11.5-14.5) Platelet Count 202 x10^3/uL (140-400) Sodium Level 146 mmol/L (136-145) Potassium Level 4.9 mmol/L (3.5-5.1) Chloride Level 114 mmol/L (98-107) Carbon Dioxide Level 24 mmol/L (21-32) Anion Gap 8 (6-14) Blood Urea Nitrogen 45 mg/dL (8-26) Creatinine 1.8 mg/dL (0.7-1.3) Estimated GFR (Cockcroft-Gault) 37.4 Glucose Level 116 mg/dL (70-99) Calcium Level 8.4 mg/dL (8.5-10.1) Magnesium Level 2.6 mg/dL (1.8-2.4) Triglycerides Level 60 mg/dL (0-150) Cholesterol Level 96 mg/dL (0-200) LDL Cholesterol, Calculated 29 mg/dL (0-100) VLDL Cholesterol, Calculated 12 mg/dL (0-40) Non-HDL Cholesterol Calculated 41 mg/dL (0-129) HDL Cholesterol 55 mg/dL (40-60) Cholesterol/HDL Ratio 1.7 Assessment and Plan Assessmemt and Plan Problems Medical Problems: (1) Acute CHF Status: Acute (2) Pulmonary edema Status: Acute (3) Renal insufficiency Status: Acute Comment Review of Relevant I have reviewed the following items marina (where applicable) has been applied. Labs Laboratory Tests Test 05/21/18 13:31 05/21/18 13:35 05/21/18 13:39 05/21/18 15:15 White Blood Count 7.0 x10^3/uL (4.0-11.0) Red Blood Count 3.84 x10^6/uL (4.30-5.70) Hemoglobin 11.8 g/dL (13.0-17.5) Hematocrit 36.5 % (39.0-53.0) Mean Corpuscular Volume 95 fL (79-100) Mean Corpuscular Hemoglobin 31 pg (25-35) Mean Corpuscular Hemoglobin Concent 32 g/dL (31-37) Red Cell Distribution Width 15.7 % (11.5-14.5) Platelet Count 258 x10^3/uL (140-400) Neutrophils (%) (Auto) 89 % (31-73) Lymphocytes (%) (Auto) 6 % (24-48) Monocytes (%) (Auto) 3 % (0-9) Eosinophils (%) (Auto) 2 % (0-3) Basophils (%) (Auto) 1 % (0-3) Neutrophils # (Auto) 6.2 x10^3uL (1.8-7.7) Lymphocytes # (Auto) 0.4 x10^3/uL (1.0-4.8) Monocytes # (Auto) 0.2 x10^3/uL (0.0-1.1) Eosinophils # (Auto) 0.1 x10^3/uL (0.0-0.7) Basophils # (Auto) 0.0 x10^3/uL (0.0-0.2) Segmented Neutrophils % 86 % (35-66) Band Neutrophils % 1 % (0-9) Lymphocytes % 7 % (24-48) Monocytes % 4 % (0-10) Basophils % 2 % (0-3) Toxic Granulation Slight Platelet Estimate Adequate (ADEQUATE) Polychromasia Slight Sodium Level 144 mmol/L (136-145) Potassium Level 5.9 mmol/L (3.5-5.1) Chloride Level 111 mmol/L (98-107) Carbon Dioxide Level 22 mmol/L (21-32) Anion Gap 11 (6-14) 14 mmol/L (6-14) Blood Urea Nitrogen 51 mg/dL (8-26) Creatinine 2.2 mg/dL (0.7-1.3) Estimated GFR (Cockcroft-Gault) 29.7 BUN/Creatinine Ratio 23 (6-20) Glucose Level 295 mg/dL (70-99) 282 mg/dL (70-99) Calcium Level 8.9 mg/dL (8.5-10.1) Total Bilirubin 0.4 mg/dL (0.2-1.0) Aspartate Amino Transf (AST/SGOT) 27 U/L (15-37) Alanine Aminotransferase (ALT/SGPT) 29 U/L (16-63) Alkaline Phosphatase 173 U/L (46-116) Creatine Kinase 101 U/L (39-308) Creatine Kinase MB (Mass) 3.7 ng/mL (0.0-3.6) Creatine Kinase MB Relative Index 3.7 % (0-4) Total Protein 7.8 g/dL (6.4-8.2) Albumin 3.1 g/dL (3.4-5.0) Albumin/Globulin Ratio 0.7 (1.0-1.7) Bedside Troponin I 0.17 ng/ml (<0.08) Bedside Hemoglobin 12.9 g/dL (14-18) Bedside Hematocrit 38 % (37-52) Bedside Sodium 144 mmol/L (135-145) Bedside Potassium 5.8 mmol/L (3.5-5.0) Bedside Chloride 115 mmol/L (98-110) Bedside Total CO2 22 mmol/L (23-32) Bedside Blood Urea Nitrogen 48 mg/dL (8-26) Bedside Creatinine 2.1 mg/dL (0.5-1.4) Bedside Ionized Calcium (Craig) 1.15 mmol/L (1.13-1.32) O2 Saturation 93 % (92-99) Arterial Blood pH 7.27 (7.35-7.45) Arterial Blood pCO2 at Patient Temp 40 mmHg (35-46) Arterial Blood pO2 at Patient Temp 74 mmHg (65-108) Arterial Blood HCO3 18 mmol/L (21-28) Arterial Blood Base Excess -8 mmol/L (-3-3) FiO2 Test 05/21/18 17:10 05/21/18 20:55 05/22/18 08:00 Troponin I Quantitative 14.838 ng/mL (0.000-0.055) 10.255 ng/mL (0.000-0.055) Heparin Anti-Xa Act, Unfractionated 0.69 IU/mL (0.30-0.70) 0.23 IU/mL (0.30-0.70) White Blood Count 6.0 x10^3/uL (4.0-11.0) Red Blood Count 3.22 x10^6/uL (4.30-5.70) Hemoglobin 10.0 g/dL (13.0-17.5) Hematocrit 29.7 % (39.0-53.0) Mean Corpuscular Volume 92 fL (79-100) Mean Corpuscular Hemoglobin 31 pg (25-35) Mean Corpuscular Hemoglobin Concent 34 g/dL (31-37) Red Cell Distribution Width 14.9 % (11.5-14.5) Platelet Count 202 x10^3/uL (140-400) Sodium Level 146 mmol/L (136-145) Potassium Level 4.9 mmol/L (3.5-5.1) Chloride Level 114 mmol/L (98-107) Carbon Dioxide Level 24 mmol/L (21-32) Anion Gap 8 (6-14) Blood Urea Nitrogen 45 mg/dL (8-26) Creatinine 1.8 mg/dL (0.7-1.3) Estimated GFR (Cockcroft-Gault) 37.4 Glucose Level 116 mg/dL (70-99) Calcium Level 8.4 mg/dL (8.5-10.1) Magnesium Level 2.6 mg/dL (1.8-2.4) Triglycerides Level 60 mg/dL (0-150) Cholesterol Level 96 mg/dL (0-200) LDL Cholesterol, Calculated 29 mg/dL (0-100) VLDL Cholesterol, Calculated 12 mg/dL (0-40) Non-HDL Cholesterol Calculated 41 mg/dL (0-129) HDL Cholesterol 55 mg/dL (40-60) Cholesterol/HDL Ratio 1.7 Laboratory Tests Test 05/21/18 13:31 05/21/18 13:35 05/21/18 13:39 05/21/18 15:15 White Blood Count 7.0 x10^3/uL (4.0-11.0) Red Blood Count 3.84 x10^6/uL (4.30-5.70) Hemoglobin 11.8 g/dL (13.0-17.5) Hematocrit 36.5 % (39.0-53.0) Mean Corpuscular Volume 95 fL (79-100) Mean Corpuscular Hemoglobin 31 pg (25-35) Mean Corpuscular Hemoglobin Concent 32 g/dL (31-37) Red Cell Distribution Width 15.7 % (11.5-14.5) Platelet Count 258 x10^3/uL (140-400) Neutrophils (%) (Auto) 89 % (31-73) Lymphocytes (%) (Auto) 6 % (24-48) Monocytes (%) (Auto) 3 % (0-9) Eosinophils (%) (Auto) 2 % (0-3) Basophils (%) (Auto) 1 % (0-3) Neutrophils # (Auto) 6.2 x10^3uL (1.8-7.7) Lymphocytes # (Auto) 0.4 x10^3/uL (1.0-4.8) Monocytes # (Auto) 0.2 x10^3/uL (0.0-1.1) Eosinophils # (Auto) 0.1 x10^3/uL (0.0-0.7) Basophils # (Auto) 0.0 x10^3/uL (0.0-0.2) Segmented Neutrophils % 86 % (35-66) Band Neutrophils % 1 % (0-9) Lymphocytes % 7 % (24-48) Monocytes % 4 % (0-10) Basophils % 2 % (0-3) Toxic Granulation Slight Platelet Estimate Adequate (ADEQUATE) Polychromasia Slight Sodium Level 144 mmol/L (136-145) Potassium Level 5.9 mmol/L (3.5-5.1) Chloride Level 111 mmol/L (98-107) Carbon Dioxide Level 22 mmol/L (21-32) Anion Gap 11 (6-14) 14 mmol/L (6-14) Blood Urea Nitrogen 51 mg/dL (8-26) Creatinine 2.2 mg/dL (0.7-1.3) Estimated GFR (Cockcroft-Gault) 29.7 BUN/Creatinine Ratio 23 (6-20) Glucose Level 295 mg/dL (70-99) 282 mg/dL (70-99) Calcium Level 8.9 mg/dL (8.5-10.1) Total Bilirubin 0.4 mg/dL (0.2-1.0) Aspartate Amino Transf (AST/SGOT) 27 U/L (15-37) Alanine Aminotransferase (ALT/SGPT) 29 U/L (16-63) Alkaline Phosphatase 173 U/L (46-116) Creatine Kinase 101 U/L (39-308) Creatine Kinase MB (Mass) 3.7 ng/mL (0.0-3.6) Creatine Kinase MB Relative Index 3.7 % (0-4) Total Protein 7.8 g/dL (6.4-8.2) Albumin 3.1 g/dL (3.4-5.0) Albumin/Globulin Ratio 0.7 (1.0-1.7) Bedside Troponin I 0.17 ng/ml (<0.08) Bedside Hemoglobin 12.9 g/dL (14-18) Bedside Hematocrit 38 % (37-52) Bedside Sodium 144 mmol/L (135-145) Bedside Potassium 5.8 mmol/L (3.5-5.0) Bedside Chloride 115 mmol/L (98-110) Bedside Total CO2 22 mmol/L (23-32) Bedside Blood Urea Nitrogen 48 mg/dL (8-26) Bedside Creatinine 2.1 mg/dL (0.5-1.4) Bedside Ionized Calcium (Craig) 1.15 mmol/L (1.13-1.32) O2 Saturation 93 % (92-99) Arterial Blood pH 7.27 (7.35-7.45) Arterial Blood pCO2 at Patient Temp 40 mmHg (35-46) Arterial Blood pO2 at Patient Temp 74 mmHg (65-108) Arterial Blood HCO3 18 mmol/L (21-28) Arterial Blood Base Excess -8 mmol/L (-3-3) FiO2 Test 05/21/18 17:10 05/21/18 20:55 05/22/18 08:00 Troponin I Quantitative 14.838 ng/mL (0.000-0.055) 10.255 ng/mL (0.000-0.055) Heparin Anti-Xa Act, Unfractionated 0.69 IU/mL (0.30-0.70) 0.23 IU/mL (0.30-0.70) White Blood Count 6.0 x10^3/uL (4.0-11.0) Red Blood Count 3.22 x10^6/uL (4.30-5.70) Hemoglobin 10.0 g/dL (13.0-17.5) Hematocrit 29.7 % (39.0-53.0) Mean Corpuscular Volume 92 fL (79-100) Mean Corpuscular Hemoglobin 31 pg (25-35) Mean Corpuscular Hemoglobin Concent 34 g/dL (31-37) Red Cell Distribution Width 14.9 % (11.5-14.5) Platelet Count 202 x10^3/uL (140-400) Sodium Level 146 mmol/L (136-145) Potassium Level 4.9 mmol/L (3.5-5.1) Chloride Level 114 mmol/L (98-107) Carbon Dioxide Level 24 mmol/L (21-32) Anion Gap 8 (6-14) Blood Urea Nitrogen 45 mg/dL (8-26) Creatinine 1.8 mg/dL (0.7-1.3) Estimated GFR (Cockcroft-Gault) 37.4 Glucose Level 116 mg/dL (70-99) Calcium Level 8.4 mg/dL (8.5-10.1) Magnesium Level 2.6 mg/dL (1.8-2.4) Triglycerides Level 60 mg/dL (0-150) Cholesterol Level 96 mg/dL (0-200) LDL Cholesterol, Calculated 29 mg/dL (0-100) VLDL Cholesterol, Calculated 12 mg/dL (0-40) Non-HDL Cholesterol Calculated 41 mg/dL (0-129) HDL Cholesterol 55 mg/dL (40-60) Cholesterol/HDL Ratio 1.7 Medications Current Medications Furosemide (Lasix) 40 mg 1X ONCE IV Last administered on 05/21/18at 13:54; Start 05/21/18 at 13:45; Stop 05/21/18 at 13:46; Status DC Nitroglycerin/ Dextrose 250 ml @ 3 mls/hr 1X ONCE IV Last administered on at 13:54; Start 05/21/18 at 13:45; Stop 05/21/18 at 21:10; Status DC Morphine Sulfate (Morphine Sulfate) 2 mg 1X ONCE IV ; Start 05/21/18 at 13:45; Stop 05/21/18 at 13:46; Status DC Morphine Sulfate (Morphine Sulfate) 2 mg 1X ONCE IM ; Start 05/21/18 at 13:45; Stop 05/21/18 at 13:46; Status DC Heparin Sodium/ Dextrose 500 ml @ 0 mls/hr CONT PRN IV SEE I/O RECORD Last administered on 05/21/18at 14:34; Start 05/21/18 at 14:15 Heparin Sodium (Porcine) (Heparin Sodium) 2,700 unit PRN Q6HRS PRN IV FOR UFH LEVEL LESS THAN 0.2; Start 05/21/18 at 14:15 Aspirin (Ecotrin) 325 mg [id number] PO Last administered on 05/22/18at 09:20; Start 05/21/18 at 17:00 Atorvastatin Calcium (Lipitor) 20 mg QHS PO Last administered on 05/21/18at 21:01 ; Start 05/21/18 at 21:00 Aspirin (Children'S Aspirin) 81 mg DAILYAC PO ; Start 05/22/18 at 07:30; Stop 05/22/18 at 07:30; Status DC Atorvastatin Calcium (Lipitor) 20 mg HS PO ; Start 05/21/18 at 21:00; Status UNV Furosemide (Lasix) 40 mg BID92 PO ; Start 05/22/18 at 09:00; Stop 05/22/18 at 09: 00; Status DC Non-Formulary Medication (Glipizide ) 1 tab BID PO ; Start 05/21/18 at 21:00; Stop 05/21/18 at 21:00; Status DC Losartan Potassium (Cozaar) 100 mg DAILY PO ; Start 05/21/18 at 18:00; Stop at 18:08; Status DC Pioglitazone HCl (Actos) 30 mg DAILY PO ; Start 05/22/18 at 09:00; Stop 05/22/18 at 09:00; Status DC Potassium Chloride (Klor-Con) 20 meq BIDWMEALS PO ; Start 05/22/18 at 08:00; Stop 05/22/18 at 08:00; Status DC Non-Formulary Medication (Spironolactone ) 1 tab DAILY PO ; Start 05/22/18 at 09: 00; Stop 05/22/18 at 09:00; Status DC Info (Anti-Coagulation Monitoring By Pharmacy) 1 each PRN DAILY PRN MC SEE COMMENTS; Start 05/21/18 at 17:45 Morphine Sulfate (Morphine Sulfate) 2 mg PRN Q2HR PRN IV PAIN Last administered on 05/21/18at 18:53; Start 05/21/18 at 18:15 Nitroglycerin/ Dextrose 250 ml @ 1.5 mls/hr CONT PRN IV SEE I/O RECORD Last administered on 05/21/18at 21:51; Start 05/21/18 at 21:15 Lorazepam (Ativan) 1 mg PRN Q4HRS PRN IV ANXIETY / AGITATION; Start 05/21/18 at 21:15 Albuterol Sulfate (Ventolin Neb Soln) 2.5 mg PRN Q4HRS PRN NEB SHORTNESS OF BREATH Last administered on 05/21/18at 22:01; Start 05/21/18 at 21:15 Acetaminophen (Tylenol) 650 mg PRN Q6HRS PRN PO FEVER; Start 05/22/18 at 09:30 Ondansetron HCl (Zofran) 4 mg PRN Q6HRS PRN IV NAUSEA/VOMITING; Start 05/22/18 at 09:30 Morphine Sulfate (Morphine Sulfate) 2 mg PRN Q2HR PRN IV PAIN; Start 05/22/18 at 09:45 Tramadol HCl (Ultram) 50 mg PRN Q6HRS PRN PO MILD TO MODERATE PAIN; Start at 09:30 Hydralazine HCl (Apresoline Inj) 10 mg PRN Q4HRS PRN IVP ELEVATED BP, SEE COMMENTS; Start 05/22/18 at 09:30 Docusate Sodium (Colace) 100 mg PRN DAILY PRN PO CONSTIPATION; Start 05/22/18 at 09:30 Sodium Chloride 1,000 ml @ 30 mls/hr 1X ONCE IV ; Start 05/22/18 at 10:00; Stop 05/23/18 at 19:19 Lidocaine HCl (Xylocaine-Mpf 1% 2ml Vial) 2 ml STK-MED ONCE .ROUTE ; Start at 11:40; Stop 05/22/18 at 11:41; Status DC Heparin Sodium/ Sodium Chloride 1,000 ml @ As Directed STK-MED ONCE .ROUTE ; Start 05/22/18 at 11:40; Stop 05/22/18 at 11:41; Status DC Active Scripts Active Reported Spironolactone 50 Mg Tablet 1 Tab PO DAILY Furosemide 40 Mg Tablet 40 Mg PO BID Potassium Chloride 20 Meq Tablet.er 20 Meq PO BID Actos (Pioglitazone Hcl) 30 Mg Tablet 1 Tab PO DAILY Losartan Potassium 100 Mg Tablet 100 Mg PO DAILY Atorvastatin Calcium 20 Mg Tablet 20 Mg PO HS Aspirin 81 Mg Tab.chew 81 Mg PO DAILYAC Glipizide 10 Mg Tablet 1 Tab PO BID Vitals/I & O Vital Sign - Last 24 Hours 05/21/18 05/21/18 05/21/18 05/21/18 13:38 13:40 13:43 13:48 Temp 96.5 96.5 Pulse 80 76 74 Resp 26 20 20 B/P (MAP) 208/86 (126) 179/82 (114) 161/72 (101) Pulse Ox 96 96 96 O2 Delivery BiPAP/CPAP BiPAP/CPAP BiPAP/CPAP BiPAP/CPAP 05/21/18 05/21/18 05/21/18 05/21/18 13:53 13:58 14:03 14:08 Pulse 74 72 72 70 Resp 20 20 20 20 B/P (MAP) 152/64 (93) 160/72 (101) 146/65 (92) 139/61 (87) Pulse Ox 95 96 96 97 O2 Delivery BiPAP/CPAP BiPAP/CPAP BiPAP/CPAP BiPAP/CPAP 05/21/18 05/21/18 05/21/18 05/21/18 14:13 14:18 14:23 14:28 Pulse 70 70 68 70 Resp 20 20 20 20 B/P (MAP) 145/66 (92) 149/68 (95) 146/63 (90) 159/69 (99) Pulse Ox 96 96 97 95 O2 Delivery BiPAP/CPAP BiPAP/CPAP BiPAP/CPAP BiPAP/CPAP 05/21/18 05/21/18 05/21/18 05/21/18 14:33 14:38 14:43 14:48 Pulse 68 66 68 66 Resp 20 20 20 20 B/P (MAP) 145/64 (91) 141/65 (90) 150/56 (87) 146/65 (92) Pulse Ox 96 97 97 97 O2 Delivery BiPAP/CPAP BiPAP/CPAP BiPAP/CPAP BiPAP/CPAP 05/21/18 05/21/18 05/21/18 05/21/18 14:53 14:58 15:00 15:03 Pulse 64 64 64 Resp 20 20 20 B/P (MAP) 146/67 (93) 146/65 (92) 164/76 (105) Pulse Ox 98 98 99 97 O2 Delivery BiPAP/CPAP BiPAP/CPAP BiPAP/CPAP BiPAP/CPAP 05/21/18 05/21/18 05/21/18 05/21/18 15:08 15:13 15:45 15:45 Temp 98.9 98.9 Pulse 68 68 65 Resp 20 20 23 B/P (MAP) 172/80 (110) 173/79 (110) 151/72 (98) Pulse Ox 97 96 98 O2 Delivery BiPAP/CPAP BiPAP/CPAP BiPAP/CPAP Bi-pap 05/21/18 05/21/18 05/21/18 05/21/18 16:00 16:56 17:00 18:00 Pulse 62 67 72 Resp 16 22 20 B/P (MAP) 137/68 (91) 154/75 (101) 158/86 (110) Pulse Ox 96 97 97 O2 Delivery BiPAP/CPAP Bi-pap BiPAP/CPAP BiPAP/CPAP 05/21/18 05/21/18 05/21/18 05/21/18 18:36 18:53 19:00 19:25 Pulse 80 Resp 26 25 B/P (MAP) 163/99 (120) Pulse Ox 100 90 96 O2 Delivery BiPAP/CPAP Nasal Cannula Nasal Cannula BiPAP/CPAP O2 Flow Rate 5.0 6.0 05/21/18 05/21/18 05/21/18 05/21/18 19:44 20:00 20:40 21:00 Temp 98.0 98.0 Pulse 70 69 Resp 20 21 B/P (MAP) 166/82 (110) 168/83 (111) Pulse Ox 96 97 98 O2 Delivery BiPAP/CPAP BiPAP/CPAP Bi-pap BiPAP/CPAP 05/21/18 05/21/18 05/21/18 05/21/18 21:22 22:00 23:00 23:13 Pulse 69 71 Resp 20 22 B/P (MAP) 163/76 (105) 160/75 (103) Pulse Ox 98 98 98 98 O2 Delivery BiPAP/CPAP BiPAP/CPAP BiPAP/CPAP BiPAP/CPAP 05/22/18 05/22/18 05/22/18 05/22/18 00:00 00:00 01:00 01:37 Temp 97.4 97.4 Pulse 65 67 Resp 20 20 B/P (MAP) 159/77 (104) 139/65 (89) Pulse Ox 99 99 98 O2 Delivery BiPAP/CPAP Bi-pap BiPAP/CPAP BiPAP/CPAP 05/22/18 05/22/18 05/22/18 05/22/18 02:00 03:00 03:21 04:00 Pulse 69 64 Resp 22 24 B/P (MAP) 138/63 (88) 140/66 (90) Pulse Ox 99 98 98 O2 Delivery BiPAP/CPAP BiPAP/CPAP BiPAP/CPAP Bi-pap 05/22/18 05/22/18 05/22/18 04:00 05:00 06:00 Temp 98.1 98.1 Pulse 62 67 75 Resp 21 21 26 B/P (MAP) 130/60 (83) 140/58 (85) 108/69 (82) Pulse Ox 99 96 96 O2 Delivery BiPAP/CPAP Venturi Mask Venturi Mask Intake and Output 05/21/18 05/21/1819 15:01 23:01 07:01 Intake Total 926 ml Output Total 2725 ml 680 ml Balance -2725 ml 246 ml RAJI PARRISH MD May 22, 2018 12:27
[2018-05-22] MEDS ORDERED: guaiFENesin ORAL 200 MG/10 ML LIQUID. PO PRN (12:30)
[2018-05-22] MEDS ORDERED: FUROSEMIDE 40 MG/4 ML VIAL. IVP ONE (12:30)
[2018-05-22] MEDS ORDERED: DEXTROSE 50% 25 GM / 50ML DISP.SYRIN. IV PRN (12:30)
[2018-05-22] MEDS: ANTI-COAG MONITOR BY PHARMACY. MC PRN (13:00)
[2018-05-22] MEDS ORDERED: LIDOCAINE 1% PF 30 ML VIAL. ONE (13:30)
[2018-05-22] MEDS ORDERED: MIDAZOLAM HCL/PF 2 MG/2 ML VIAL. ONE (13:32)
[2018-05-22] MEDS ORDERED: fentaNYL PF VIAL 100 MCG/2 ML VIAL ONE (13:32)
--- NOTE | 2018-05-22 13:34 | PDOC ---
MODERATE SEDATION ASSESSMENT RISKS/ALTERNATIVES Risks/Alternatives Risks and alternatives of this type of sedation and procedure discussed with: RISK/ALTERNATIVES: Patient H & P ON CHART H & P H & P on chart and reviewed for co-morbid conditions and appropriate labs. H&P ON CHART: Yes STATUS PREG STATUS ASSESSED: N/A MEDS/ALLERGIES REVIEWED Meds/Allergies Reviewed Medications and Allergies including time and route of recently administered narcotics and sedatives. MEDS/ALLERGIES REVIEWED: Yes ASA RATING ASA RATING: III AIRWAY ASSESSMENT Airway Assessment Airway patency, oral function limitations, presence of caps, crowns, dentures, partials, and ability to extend neck assessed. AIRWAY ASSESSMENT: Yes MALLAMPATI SCORE MALLAMPATI SCORE: III PRE-SEDATION ASSESSMENT PRE-SEDATION ASSESSMENT: Yes LAUREN MERRITT MD May 22, 2018 13:34
--- NOTE | 2018-05-22 13:35 | PDOC ---
PULMONARY PROGRESS NOTES Vitals Vital Signs Date Time Temp Pulse Resp B/P (MAP) Pulse Ox O2 Delivery O2 Flow Rate FiO2 05/22/18 06:00 75 26 108/69 (82) 96 Venturi Mask 05/22/18 04:00 98.1 98.1 05/21/18 19:00 6.0 Lungs: Other (bl decreased bs) Labs Laboratory Tests Test 05/21/18 13:31 05/21/18 13:35 05/21/18 13:39 05/21/18 15:15 White Blood Count 7.0 x10^3/uL (4.0-11.0) Red Blood Count 3.84 x10^6/uL (4.30-5.70) Hemoglobin 11.8 g/dL (13.0-17.5) Hematocrit 36.5 % (39.0-53.0) Mean Corpuscular Volume 95 fL (79-100) Mean Corpuscular Hemoglobin 31 pg (25-35) Mean Corpuscular Hemoglobin Concent 32 g/dL (31-37) Red Cell Distribution Width 15.7 % (11.5-14.5) Platelet Count 258 x10^3/uL (140-400) Neutrophils (%) (Auto) 89 % (31-73) Lymphocytes (%) (Auto) 6 % (24-48) Monocytes (%) (Auto) 3 % (0-9) Eosinophils (%) (Auto) 2 % (0-3) Basophils (%) (Auto) 1 % (0-3) Neutrophils # (Auto) 6.2 x10^3uL (1.8-7.7) Lymphocytes # (Auto) 0.4 x10^3/uL (1.0-4.8) Monocytes # (Auto) 0.2 x10^3/uL (0.0-1.1) Eosinophils # (Auto) 0.1 x10^3/uL (0.0-0.7) Basophils # (Auto) 0.0 x10^3/uL (0.0-0.2) Segmented Neutrophils % 86 % (35-66) Band Neutrophils % 1 % (0-9) Lymphocytes % 7 % (24-48) Monocytes % 4 % (0-10) Basophils % 2 % (0-3) Toxic Granulation Slight Platelet Estimate Adequate (ADEQUATE) Polychromasia Slight Sodium Level 144 mmol/L (136-145) Potassium Level 5.9 mmol/L (3.5-5.1) Chloride Level 111 mmol/L (98-107) Carbon Dioxide Level 22 mmol/L (21-32) Anion Gap 11 (6-14) 14 mmol/L (6-14) Blood Urea Nitrogen 51 mg/dL (8-26) Creatinine 2.2 mg/dL (0.7-1.3) Estimated GFR (Cockcroft-Gault) 29.7 BUN/Creatinine Ratio 23 (6-20) Glucose Level 295 mg/dL (70-99) 282 mg/dL (70-99) Calcium Level 8.9 mg/dL (8.5-10.1) Total Bilirubin 0.4 mg/dL (0.2-1.0) Aspartate Amino Transf (AST/SGOT) 27 U/L (15-37) Alanine Aminotransferase (ALT/SGPT) 29 U/L (16-63) Alkaline Phosphatase 173 U/L (46-116) Creatine Kinase 101 U/L (39-308) Creatine Kinase MB (Mass) 3.7 ng/mL (0.0-3.6) Creatine Kinase MB Relative Index 3.7 % (0-4) Total Protein 7.8 g/dL (6.4-8.2) Albumin 3.1 g/dL (3.4-5.0) Albumin/Globulin Ratio 0.7 (1.0-1.7) Bedside Troponin I 0.17 ng/ml (<0.08) Bedside Hemoglobin 12.9 g/dL (14-18) Bedside Hematocrit 38 % (37-52) Bedside Sodium 144 mmol/L (135-145) Bedside Potassium 5.8 mmol/L (3.5-5.0) Bedside Chloride 115 mmol/L (98-110) Bedside Total CO2 22 mmol/L (23-32) Bedside Blood Urea Nitrogen 48 mg/dL (8-26) Bedside Creatinine 2.1 mg/dL (0.5-1.4) Bedside Ionized Calcium (Craig) 1.15 mmol/L (1.13-1.32) O2 Saturation 93 % (92-99) Arterial Blood pH 7.27 (7.35-7.45) Arterial Blood pCO2 at Patient Temp 40 mmHg (35-46) Arterial Blood pO2 at Patient Temp 74 mmHg (65-108) Arterial Blood HCO3 18 mmol/L (21-28) Arterial Blood Base Excess -8 mmol/L (-3-3) FiO2 Test 05/21/18 17:10 05/21/18 20:55 05/22/18 08:00 Troponin I Quantitative 14.838 ng/mL (0.000-0.055) 10.255 ng/mL (0.000-0.055) Heparin Anti-Xa Act, Unfractionated 0.69 IU/mL (0.30-0.70) 0.23 IU/mL (0.30-0.70) White Blood Count 6.0 x10^3/uL (4.0-11.0) Red Blood Count 3.22 x10^6/uL (4.30-5.70) Hemoglobin 10.0 g/dL (13.0-17.5) Hematocrit 29.7 % (39.0-53.0) Mean Corpuscular Volume 92 fL (79-100) Mean Corpuscular Hemoglobin 31 pg (25-35) Mean Corpuscular Hemoglobin Concent 34 g/dL (31-37) Red Cell Distribution Width 14.9 % (11.5-14.5) Platelet Count 202 x10^3/uL (140-400) Sodium Level 146 mmol/L (136-145) Potassium Level 4.9 mmol/L (3.5-5.1) Chloride Level 114 mmol/L (98-107) Carbon Dioxide Level 24 mmol/L (21-32) Anion Gap 8 (6-14) Blood Urea Nitrogen 45 mg/dL (8-26) Creatinine 1.8 mg/dL (0.7-1.3) Estimated GFR (Cockcroft-Gault) 37.4 Glucose Level 116 mg/dL (70-99) Calcium Level 8.4 mg/dL (8.5-10.1) Magnesium Level 2.6 mg/dL (1.8-2.4) Triglycerides Level 60 mg/dL (0-150) Cholesterol Level 96 mg/dL (0-200) LDL Cholesterol, Calculated 29 mg/dL (0-100) VLDL Cholesterol, Calculated 12 mg/dL (0-40) Non-HDL Cholesterol Calculated 41 mg/dL (0-129) HDL Cholesterol 55 mg/dL (40-60) Cholesterol/HDL Ratio 1.7 Laboratory Tests Test 05/21/18 13:35 05/21/18 13:39 05/21/18 15:15 05/21/18 17:10 Bedside Troponin I 0.17 ng/ml (<0.08) Bedside Hemoglobin 12.9 g/dL (14-18) Bedside Hematocrit 38 % (37-52) Bedside Sodium 144 mmol/L (135-145) Bedside Potassium 5.8 mmol/L (3.5-5.0) Bedside Chloride 115 mmol/L (98-110) Bedside Total CO2 22 mmol/L (23-32) Anion Gap 14 mmol/L (6-14) Bedside Blood Urea Nitrogen 48 mg/dL (8-26) Bedside Creatinine 2.1 mg/dL (0.5-1.4) Glucose Level 282 mg/dL (70-99) Bedside Ionized Calcium (Craig) 1.15 mmol/L (1.13-1.32) O2 Saturation 93 % (92-99) Arterial Blood pH 7.27 (7.35-7.45) Arterial Blood pCO2 at Patient Temp 40 mmHg (35-46) Arterial Blood pO2 at Patient Temp 74 mmHg (65-108) Arterial Blood HCO3 18 mmol/L (21-28) Arterial Blood Base Excess -8 mmol/L (-3-3) FiO2 Troponin I Quantitative 14.838 ng/mL (0.000-0.055) Test 05/21/18 20:55 05/22/18 08:00 Heparin Anti-Xa Act, Unfractionated 0.69 IU/mL (0.30-0.70) 0.23 IU/mL (0.30-0.70) White Blood Count 6.0 x10^3/uL (4.0-11.0) Red Blood Count 3.22 x10^6/uL (4.30-5.70) Hemoglobin 10.0 g/dL (13.0-17.5) Hematocrit 29.7 % (39.0-53.0) Mean Corpuscular Volume 92 fL (79-100) Mean Corpuscular Hemoglobin 31 pg (25-35) Mean Corpuscular Hemoglobin Concent 34 g/dL (31-37) Red Cell Distribution Width 14.9 % (11.5-14.5) Platelet Count 202 x10^3/uL (140-400) Sodium Level 146 mmol/L (136-145) Potassium Level 4.9 mmol/L (3.5-5.1) Chloride Level 114 mmol/L (98-107) Carbon Dioxide Level 24 mmol/L (21-32) Anion Gap 8 (6-14) Blood Urea Nitrogen 45 mg/dL (8-26) Creatinine 1.8 mg/dL (0.7-1.3) Estimated GFR (Cockcroft-Gault) 37.4 Glucose Level 116 mg/dL (70-99) Calcium Level 8.4 mg/dL (8.5-10.1) Magnesium Level 2.6 mg/dL (1.8-2.4) Troponin I Quantitative 10.255 ng/mL (0.000-0.055) Triglycerides Level 60 mg/dL (0-150) Cholesterol Level 96 mg/dL (0-200) LDL Cholesterol, Calculated 29 mg/dL (0-100) VLDL Cholesterol, Calculated 12 mg/dL (0-40) Non-HDL Cholesterol Calculated 41 mg/dL (0-129) HDL Cholesterol 55 mg/dL (40-60) Cholesterol/HDL Ratio 1.7 Medications Active Scripts Medications Dose Route/Sig Max Daily Dose Days Date Category Spironolactone 50 Mg Tablet 1 Tab PO DAILY 12/19/17 Reported Furosemide 40 Mg Tablet 40 Mg PO BID 07/15/17 Reported Potassium Chloride 20 Meq Tablet.er 20 Meq PO BID 07/15/17 Reported Actos (Pioglitazone Hcl) 30 Mg Tablet 1 Tab PO DAILY 07/15/17 Reported Losartan Potassium 100 Mg Tablet 100 Mg PO DAILY 07/15/17 Reported Atorvastatin Calcium 20 Mg Tablet 20 Mg PO HS 03/25/16 Reported Aspirin 81 Mg Tab.chew 81 Mg PO DAILYAC 05/06/15 Reported Glipizide 10 Mg Tablet 1 Tab PO BID 07/09/14 Reported Impression . NOTE DICATED AGREE WITH CURRENT RX ADD ANTIBX OUT PT SLEEP ENID ORTEGA MD May 22, 2018 13:35
[2018-05-22] MEDS ORDERED: fentaNYL PF VIAL 100 MCG/2 ML VIAL IV ONE (14:00)
[2018-05-22] MEDS: BENZONATATE 100 MG CAPSULE. PO SCH ×2 (14:00→21:16)
[2018-05-22] MEDS ORDERED: LIDOCAINE 1% PF 30 ML VIAL. INJ ONE (14:00)
[2018-05-22] MEDS ORDERED: MIDAZOLAM HCL/PF 2 MG/2 ML VIAL. IV ONE (14:00)
[2018-05-22] MEDS ORDERED: CONTRAST GIVEN. MC PRN (14:00)
[2018-05-22] MEDS ORDERED: IODIXANOL 320 MG/ML 100 ML VIAL. IART ONE (14:00)
--- NOTE | 2018-05-22 15:49 | NUR ---
Wound Care Pt refused wound care consult.
--- NOTE | 2018-05-22 16:05 | NUR ---
SS following for discharge planning. SS reviewed pt chart. Pt is from home and currently requires high flow oxygen. No PT/OT evaluations at this time. SS will continue to follow for pending needs.
--- NOTE | 2018-05-22 16:53 | CARD ---
MR#: [id number] Date of Study: 05/22/2018 Ordering Physician: LAUREN SHERIDAN, Referring Physician: GREGG CABA Tech: RT Saleem (R) INOCENCIA APPROVED REPORT Technologist: RT Saleem (R) INOCENCIA Nurse: Tracey Mitchell R.N. Procedure(s) performed: 40 MINUTES SEDATION [facility], Coronary angiography, Bypass angiography HISTORY The patient is a 72 year-old male with a history of : coronary artery disease, tobacco history() , hy pertension, dyslipidemia. INDICATION The indication(s) include : non-STEMI . PROCEDURE NARRATIVE After explaining the risks and benefits of the procedure and alternatives, informed consent was obtai sandra. The patient was brought electively to the cardiac catheterization lab in a fasting state. A ricardo eout was performed confirming the patient's name, date of , procedure, and site of procedure. A ll necessary personnel were wearing the appropriate protective equipment and radiation monitor device s. (See nursing notes for medications administered). The right groin was sterilely prepped and drap ed in the usual fashion. The right groin was infiltrated with 10 mL of 2% lidocaine for subcutaneous anesthesia. A 6 F sheath was inserted into the right femoral artery without difficulty. Right and left coronary angiography was performed using a JR4 and JL4 catheter. Bypass angiography performed wi JR4 and MARIBELL catheters. Left ventricular end diastolic pressure was obtained with a pigtail gardenia ter and pullback was performed and LV gram deferred due to CKD. All catheter exchanges and advanceme nts were performed over a guidewire. At case completion the right femoral sheath was removed and hem ostasis was achieved with an Angioseal Device after limited femoral angiography confirmed adequate ve ssel size and anatomy. There were no acute complications. HEMODYNAMICS: AO: 154/88 LVEDP 26 mm Hg No gradient on LV to aortic pullback. LEFT VENTRICULOGRAM: Deferred. CORONARY ANGIOGRAPHY: LM is a moderate caliber vessel with an ostial 80% stenosis and distal 90% stenosis. 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 LAD is a moderate caliber heavily calcified vessel with a proximal to mid diffuse 80% stenosis. The d istal vessel fills via a patent MARIBELL graft and has no significant disease. Ramus is a small caliber vessel with an ostial 50% stenosis. D1 is a small claiber vessel that arises just distal to the LM aneurysm. LCx is a small caliber calcified vessel with diffuse 50-70% stenosis. OM1 is a small caliber vessel that arises just distal to the LM stem aneurysm and has mild luminal ir regularities. RCA is a large caliber dominant vessel with an ostial heavily calcified 95% stenosis. RPDA and RPL are small to moderate caliber vessels that fill via a patent vein graft. The RPDA has a mid 50% stenosis. BYPASS ANGIOGRAPHY: AGUSTIN to LAD is widely patent without significant anastomotic stenosis. SVG to RCA is widely patent without anastomotic stenosis. Radial/SVG graft to the LCx system not visualized. No evidence of competitive flow on [place] injectio n. Conclusion 1. Elevated left ventricular filling pressures consistent with acute on chronic systolic/diastolic HF 2. HTN 3. Severe [place] three vessel CAD, unchanged from cath in 12/2017 4. Severe diffuse small vessel disease likely culprit for NSTEMI 5. 2/4 grafts patent. Recommendations Aggressive medical therapy. Signed by : Lauren Sheridan, Electronically Approved : 05/22/2018 16:51:21
--- NOTE | 2018-05-22 16:58 | RAD ---
EXAM: Chest, single view. HISTORY: Congestive heart failure. COMPARISON: 07/19/2017 FINDINGS: A frontal view of the chest is obtained. There is slight increased diffuse interstitial infiltrate. There is stable suspected small pleural effusions. The heart is normal in size. There is evidence of prior CABG. There is a cardiac pacemaker with leads overlying expected position. There is no pneumothorax. IMPRESSION: 1. Slight interval increase in diffuse interstitial infiltrate likely due to congestion. 2. Stable suspected small pleural effusions. Electronically signed by: Britni Rosa MD (05/22/2018 4:54 PM) [place] [id number]
[2018-05-22] MEDS: INSULIN LISPRO 300 UNITS/3 ML INSULN.PEN. SQ SCH (17:00)
[2018-05-22] MEDS: ISOSORBIDE MONONITRATE ER 30 MG TAB.ER.24H PO SCH (18:06)
[2018-05-22] MEDS: CLOPIDOGREL BISULFATE 75 MG TABLET PO SCH (18:06)
--- NOTE | 2018-05-22 19:05 | CONS ---
DATE OF CONSULTATION: 05/22/2018 ATTENDING PHYSICIAN: Dr. Valdes. REASON FOR CONSULTATION: The patient seen in pulmonary consultation at the request of Dr. Valdes for acute respiratory failure requiring noninvasive ventilation. HISTORY OF PRESENT ILLNESS: The patient is a 72-year-old with history of coronary artery disease, previous coronary artery bypass grafting, chronic heart failure, presented with increasing shortness of breath to the Emergency Department at [facility]. He was transferred to [place]. He had a 3-hour duration of shortness of breath, anterior chest discomfort similar to prior cardiac episodes. He had no significant cough, no fever. EKG done at Emergency Room was concerning for the possibility of the inferior lateral ST segment elevation PA. EKG was reviewed. It was compatible with a rhythm paced. The patient is currently on scheduled to go to the cardiac catheterization lab. He used CPAP overnight. He does not carry a diagnosis of obstructive sleep apnea or COPD. He does not wear oxygen at home. He quit tobacco 6 years ago. He was recently treated for pneumonia. PAST MEDICAL HISTORY: 1. Coronary artery disease with previous myocardial infarction. 2. Chronic heart failure. 3. Type 2 diabetes. 4. Hyperlipidemia. 5. Hypertension. 6. Arthritis. PAST SURGICAL HISTORY: Status post cholecystectomy, coronary artery bypass grafting, knee surgery. 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 REVIEW OF SYSTEMS: CONSTITUTIONAL: Subjective fever. EYES: No change in visual acuity. HEENT: No nasal congestion or sore throat. PULMONARY: As indicated above. CARDIOVASCULAR: As indicated above. GASTROINTESTINAL: No nausea, vomiting, diarrhea. GENITOURINARY: No dysuria or frequency. MUSCULOSKELETAL: No localized muscle aches or joint pains. SKIN: No new skin rashes. NEUROLOGIC: No headaches, diplopia or blurred vision. ALLERGIES: LISTED TO PENICILLIN, PIPERACILLIN AND TAZOBACTAM. PHYSICAL EXAMINATION: GENERAL: Morbid obese individual with a body mass index of 35, in no significant respiratory distress. He is currently off of BiPAP. VITAL SIGNS: Noted. HEENT: Eyes, the sclerae were nonicteric. NECK: Jugular venous distention could not be assessed secondary to body habitus. CHEST: Full expansion. LUNGS: Crackles in the bases. No wheezes. CARDIOVASCULAR: Regular rate and rhythm with S1, S2, no S3. ABDOMEN: Soft, nontender, nondistended. EXTREMITIES: No clubbing, cyanosis, some edema. Skin changes in the lower extremities compatible with venous and arterial insufficiency. NEUROLOGIC: The patient was awake, alert, following commands. A detailed neuro exam was not performed. LABORATORY DATA: Reviewed. Echocardiogram revealed ejection fraction of 40%-45%. Chest x-ray revealed left lower lobe atelectasis, possible infiltrate. White count was not elevated. Hemoglobin and hematocrit were noted. Arterial blood gas revealed a pH of 7.27, PaCO2 of 40, PaO2 of 74, bicarb of 18. Electrolytes were noted. BUN was elevated. Creatinine was elevated. Albumin upon admission was low. Troponin was markedly elevated. IMPRESSION: 1. Acute hypoxemic respiratory failure secondary to acute congestive heart failure, possible pneumonia. 2. Abnormal x-ray compatible with left lower lobe atelectasis, infiltrate. 3. Coronary artery disease with previous coronary artery bypass grafting. 4. Elevated troponin. 5. Acute on chronic kidney failure. 6. Diabetes. 7. Morbid obesity. 8. Clinical signs of obstructive sleep apnea. 9. Morbid obesity. 10. Hemoptysis secondary to acute congestive heart failure. 11. Possible left-sided effusion. PLAN: 1. Continue current support with BiPAP. 2. Diurese. 3. Follow Cardiology input, the patient to undergo cardiac catheterization today. 4. Consult Nephrology. 5. Outpatient polysomnogram. 6. Heparin. 7. Empiric antibiotics. I will follow along, I do appreciate the privilege in sharing in the patient's care. Total cumulative critical care time of 50 minutes. ENID MAC MD DR: TIMA/maurice JOB#: [id number] / [id number]
[2018-05-22] MEDS: ATORVASTATIN CALCIUM 20 MG TABLET PO SCH (21:16)
[2018-05-22] MEDS: hydrALAZINE 25 MG TABLET PO SCH (21:17)
[2018-05-22] MEDS: NITROGLYCERIN PREMIX 250 ML IV PRN (22:42)
[2018-05-23] VITALS (9 sets, daily range): BP systolic 128–183; BP diastolic 57–108
[2018-05-23 05:34] LABS: BASO % 0 % (0-3); EOS # 0.2 x10^3/uL (0.0-0.7); EOS % 4 % (0-3); HEMATOCRIT 29.7 % (39.0-53.0); HEMOGLOBIN 9.7 g/dL (13.0-17.5); LYMPH # 0.4 x10^3/uL (1.0-4.8); LYMPH % 9 % (24-48); MEAN CORPUSCULAR HEMOGLOBIN 31 pg (25-35); MEAN CORPUSCULAR HGB CONC 33 g/dL (31-37); MEAN CORPUSCULAR VOLUME 93 fL (79-100); MONO # 0.5 x10^3/uL (0.0-1.1); MONO % 11 % (0-9); NEUT # 3.5 x10^3uL (1.8-7.7); NEUT % 76 % (31-73); PLATELET COUNT 182 x10^3/uL (140-400); RED BLOOD COUNT 3.19 x10^6/uL (4.30-5.70); RED CELL DISTRIBUTION WIDTH 15.2 % (11.5-14.5); WHITE BLOOD COUNT 4.7 x10^3/uL (4.0-11.0)
[2018-05-23 05:59] LABS: CALCIUM 8.4 mg/dL (8.5-10.1); CREATININE 1.5 mg/dL (0.7-1.3); GFR 46.1; POTASSIUM 4.8 mmol/L (3.5-5.1)
[2018-05-23] MEDS ORDERED: FUROSEMIDE 40 MG/4 ML VIAL. IVP ONE (08:00)
[2018-05-23] MEDS: INSULIN LISPRO 300 UNITS/3 ML INSULN.PEN. SQ SCH ×3 (08:00→18:00)
[2018-05-23] MEDS: ASPIRIN ENTERIC COATED 325 MG TABLET.DR. PO SCH (08:30)
[2018-05-23] MEDS: ISOSORBIDE MONONITRATE ER 30 MG TAB.ER.24H PO SCH (08:31)
[2018-05-23] MEDS: CLOPIDOGREL BISULFATE 75 MG TABLET PO SCH (08:31)
[2018-05-23] MEDS: BENZONATATE 100 MG CAPSULE. PO SCH ×3 (08:31→21:14)
[2018-05-23] MEDS: hydrALAZINE 25 MG TABLET PO SCH (08:32)
--- NOTE | 2018-05-23 08:59 | NUR ---
IP:Pt is mrsa screen + requiring contact precautions.
[2018-05-23] MEDS ORDERED: FUROSEMIDE 40 MG TABLET. PO SCH (09:00)
--- NOTE | 2018-05-23 09:40 | PDOC ---
PULMONARY PROGRESS NOTES Subjective pt with hemoptysis at times less soa Vitals Vital Signs Date Time Temp Pulse Resp B/P (MAP) Pulse Ox O2 Delivery O2 Flow Rate FiO2 05/23/18 08:32 64 150/73 05/23/18 07:00 16 98 Venturi Mask 05/23/18 03:00 98.1 98.1 05/22/18 14:30 15.0 ROS: No Nausea, No Chest Pain, No Abdominal Pain General: Alert Lungs: Crackles Cardiovascular: S1, S2 Abdomen: Soft Neuro Exam: Alert Extremities: No Edema Skin: Warm Labs Laboratory Tests Test 05/21/18 13:31 05/21/18 13:35 05/21/18 13:39 05/21/18 15:15 White Blood Count 7.0 x10^3/uL (4.0-11.0) Red Blood Count 3.84 x10^6/uL (4.30-5.70) Hemoglobin 11.8 g/dL (13.0-17.5) Hematocrit 36.5 % (39.0-53.0) Mean Corpuscular Volume 95 fL (79-100) Mean Corpuscular Hemoglobin 31 pg (25-35) Mean Corpuscular Hemoglobin Concent 32 g/dL (31-37) Red Cell Distribution Width 15.7 % (11.5-14.5) Platelet Count 258 x10^3/uL (140-400) Neutrophils (%) (Auto) 89 % (31-73) Lymphocytes (%) (Auto) 6 % (24-48) Monocytes (%) (Auto) 3 % (0-9) Eosinophils (%) (Auto) 2 % (0-3) Basophils (%) (Auto) 1 % (0-3) Neutrophils # (Auto) 6.2 x10^3uL (1.8-7.7) Lymphocytes # (Auto) 0.4 x10^3/uL (1.0-4.8) Monocytes # (Auto) 0.2 x10^3/uL (0.0-1.1) Eosinophils # (Auto) 0.1 x10^3/uL (0.0-0.7) Basophils # (Auto) 0.0 x10^3/uL (0.0-0.2) Segmented Neutrophils % 86 % (35-66) Band Neutrophils % 1 % (0-9) Lymphocytes % 7 % (24-48) Monocytes % 4 % (0-10) Basophils % 2 % (0-3) Toxic Granulation Slight Platelet Estimate Adequate (ADEQUATE) Polychromasia Slight Sodium Level 144 mmol/L (136-145) Potassium Level 5.9 mmol/L (3.5-5.1) Chloride Level 111 mmol/L (98-107) Carbon Dioxide Level 22 mmol/L (21-32) Anion Gap 11 (6-14) 14 mmol/L (6-14) Blood Urea Nitrogen 51 mg/dL (8-26) Creatinine 2.2 mg/dL (0.7-1.3) Estimated GFR (Cockcroft-Gault) 29.7 BUN/Creatinine Ratio 23 (6-20) Glucose Level 295 mg/dL (70-99) 282 mg/dL (70-99) Calcium Level 8.9 mg/dL (8.5-10.1) Total Bilirubin 0.4 mg/dL (0.2-1.0) Aspartate Amino Transf (AST/SGOT) 27 U/L (15-37) Alanine Aminotransferase (ALT/SGPT) 29 U/L (16-63) Alkaline Phosphatase 173 U/L (46-116) Creatine Kinase 101 U/L (39-308) Creatine Kinase MB (Mass) 3.7 ng/mL (0.0-3.6) Creatine Kinase MB Relative Index 3.7 % (0-4) Total Protein 7.8 g/dL (6.4-8.2) Albumin 3.1 g/dL (3.4-5.0) Albumin/Globulin Ratio 0.7 (1.0-1.7) Bedside Troponin I 0.17 ng/ml (<0.08) Bedside Hemoglobin 12.9 g/dL (14-18) Bedside Hematocrit 38 % (37-52) Bedside Sodium 144 mmol/L (135-145) Bedside Potassium 5.8 mmol/L (3.5-5.0) Bedside Chloride 115 mmol/L (98-110) Bedside Total CO2 22 mmol/L (23-32) Bedside Blood Urea Nitrogen 48 mg/dL (8-26) Bedside Creatinine 2.1 mg/dL (0.5-1.4) Bedside Ionized Calcium (Craig) 1.15 mmol/L (1.13-1.32) O2 Saturation 93 % (92-99) Arterial Blood pH 7.27 (7.35-7.45) Arterial Blood pCO2 at Patient Temp 40 mmHg (35-46) Arterial Blood pO2 at Patient Temp 74 mmHg (65-108) Arterial Blood HCO3 18 mmol/L (21-28) Arterial Blood Base Excess -8 mmol/L (-3-3) FiO2 Test 05/21/18 16:00 05/21/18 17:10 05/21/18 20:55 05/22/18 08:00 Nasal Screen MRSA (PCR) Positive (Negative) Troponin I Quantitative 14.838 ng/mL (0.000-0.055) 10.255 ng/mL (0.000-0.055) Heparin Anti-Xa Act, Unfractionated 0.69 IU/mL (0.30-0.70) 0.23 IU/mL (0.30-0.70) White Blood Count 6.0 x10^3/uL (4.0-11.0) Red Blood Count 3.22 x10^6/uL (4.30-5.70) Hemoglobin 10.0 g/dL (13.0-17.5) Hematocrit 29.7 % (39.0-53.0) Mean Corpuscular Volume 92 fL (79-100) Mean Corpuscular Hemoglobin 31 pg (25-35) Mean Corpuscular Hemoglobin Concent 34 g/dL (31-37) Red Cell Distribution Width 14.9 % (11.5-14.5) Platelet Count 202 x10^3/uL (140-400) Sodium Level 146 mmol/L (136-145) Potassium Level 4.9 mmol/L (3.5-5.1) Chloride Level 114 mmol/L (98-107) Carbon Dioxide Level 24 mmol/L (21-32) Anion Gap 8 (6-14) Blood Urea Nitrogen 45 mg/dL (8-26) Creatinine 1.8 mg/dL (0.7-1.3) Estimated GFR (Cockcroft-Gault) 37.4 Glucose Level 116 mg/dL (70-99) Calcium Level 8.4 mg/dL (8.5-10.1) Magnesium Level 2.6 mg/dL (1.8-2.4) Triglycerides Level 60 mg/dL (0-150) Cholesterol Level 96 mg/dL (0-200) LDL Cholesterol, Calculated 29 mg/dL (0-100) VLDL Cholesterol, Calculated 12 mg/dL (0-40) Non-HDL Cholesterol Calculated 41 mg/dL (0-129) HDL Cholesterol 55 mg/dL (40-60) Cholesterol/HDL Ratio 1.7 Test 05/23/18 04:15 05/23/18 05:00 05/23/18 08:20 Sodium Level 144 mmol/L (136-145) Potassium Level 4.8 mmol/L (3.5-5.1) Chloride Level 111 mmol/L (98-107) Carbon Dioxide Level 27 mmol/L (21-32) Anion Gap 6 (6-14) Blood Urea Nitrogen 38 mg/dL (8-26) Creatinine 1.5 mg/dL (0.7-1.3) Estimated GFR (Cockcroft-Gault) 46.1 Glucose Level 102 mg/dL (70-99) Calcium Level 8.4 mg/dL (8.5-10.1) White Blood Count 4.7 x10^3/uL (4.0-11.0) Red Blood Count 3.19 x10^6/uL (4.30-5.70) Hemoglobin 9.7 g/dL (13.0-17.5) Hematocrit 29.7 % (39.0-53.0) Mean Corpuscular Volume 93 fL (79-100) Mean Corpuscular Hemoglobin 31 pg (25-35) Mean Corpuscular Hemoglobin Concent 33 g/dL (31-37) Red Cell Distribution Width 15.2 % (11.5-14.5) Platelet Count 182 x10^3/uL (140-400) Neutrophils (%) (Auto) 76 % (31-73) Lymphocytes (%) (Auto) 9 % (24-48) Monocytes (%) (Auto) 11 % (0-9) Eosinophils (%) (Auto) 4 % (0-3) Basophils (%) (Auto) 0 % (0-3) Neutrophils # (Auto) 3.5 x10^3uL (1.8-7.7) Lymphocytes # (Auto) 0.4 x10^3/uL (1.0-4.8) Monocytes # (Auto) 0.5 x10^3/uL (0.0-1.1) Eosinophils # (Auto) 0.2 x10^3/uL (0.0-0.7) Basophils # (Auto) 0.0 x10^3/uL (0.0-0.2) Glucose (Fingerstick) 97 mg/dL (70-99) Laboratory Tests Test 05/23/18 04:15 05/23/18 05:00 05/23/18 08:20 Sodium Level 144 mmol/L (136-145) Potassium Level 4.8 mmol/L (3.5-5.1) Chloride Level 111 mmol/L (98-107) Carbon Dioxide Level 27 mmol/L (21-32) Anion Gap 6 (6-14) Blood Urea Nitrogen 38 mg/dL (8-26) Creatinine 1.5 mg/dL (0.7-1.3) Estimated GFR (Cockcroft-Gault) 46.1 Glucose Level 102 mg/dL (70-99) Calcium Level 8.4 mg/dL (8.5-10.1) White Blood Count 4.7 x10^3/uL (4.0-11.0) Red Blood Count 3.19 x10^6/uL (4.30-5.70) Hemoglobin 9.7 g/dL (13.0-17.5) Hematocrit 29.7 % (39.0-53.0) Mean Corpuscular Volume 93 fL (79-100) Mean Corpuscular Hemoglobin 31 pg (25-35) Mean Corpuscular Hemoglobin Concent 33 g/dL (31-37) Red Cell Distribution Width 15.2 % (11.5-14.5) Platelet Count 182 x10^3/uL (140-400) Neutrophils (%) (Auto) 76 % (31-73) Lymphocytes (%) (Auto) 9 % (24-48) Monocytes (%) (Auto) 11 % (0-9) Eosinophils (%) (Auto) 4 % (0-3) Basophils (%) (Auto) 0 % (0-3) Neutrophils # (Auto) 3.5 x10^3uL (1.8-7.7) Lymphocytes # (Auto) 0.4 x10^3/uL (1.0-4.8) Monocytes # (Auto) 0.5 x10^3/uL (0.0-1.1) Eosinophils # (Auto) 0.2 x10^3/uL (0.0-0.7) Basophils # (Auto) 0.0 x10^3/uL (0.0-0.2) Glucose (Fingerstick) 97 mg/dL (70-99) Medications Active Scripts Medications Dose Route/Sig Max Daily Dose Days Date Category Spironolactone 50 Mg Tablet 1 Tab PO DAILY 12/19/17 Reported Furosemide 40 Mg Tablet 40 Mg PO BID 07/15/17 Reported Potassium Chloride 20 Meq Tablet.er 20 Meq PO BID 07/15/17 Reported Actos (Pioglitazone Hcl) 30 Mg Tablet 1 Tab PO DAILY 07/15/17 Reported Losartan Potassium 100 Mg Tablet 100 Mg PO DAILY 07/15/17 Reported Atorvastatin Calcium 20 Mg Tablet 20 Mg PO HS 03/25/16 Reported Aspirin 81 Mg Tab.chew 81 Mg PO DAILYAC 05/06/15 Reported Glipizide 10 Mg Tablet 1 Tab PO BID 07/09/14 Reported Impression . IMPRESSION: 1. Acute hypoxemic respiratory failure secondary to acute congestive heart failure, possible pneumonia. 2. Abnormal x-ray compatible with left lower lobe atelectasis, infiltrate. 3. Coronary artery disease with previous coronary artery bypass grafting. 4. Elevated troponin. 5. Acute on chronic kidney failure. 6. Diabetes. 7. Morbid obesity. 8. Clinical signs of obstructive sleep apnea. 9. Morbid obesity. 10. Hemoptysis secondary to acute congestive heart failure. 11. Possible left-sided effusion. CXR REVIEWED NO SIGNIFICANT CHANGE CATH Conclusion 1. Elevated left ventricular filling pressures consistent with acute on chronic systolic/diastolic HF 2. HTN 3. 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 Severe diffuse small vessel disease likely culprit for NSTEMI 5. 2/4 grafts patent. Recommendations Aggressive medical therapy. Plan . PRN BIPAP 02 MONITOR FOR FURTHER HEMOPTYSIS FOLLOW CARD INUPT UP TO CHAIR OK TO TRANSFER ANTIBX OUT PT SLEEP STUDY ENID MAC MD May 23, 2018 09:40
--- NOTE | 2018-05-23 12:15 | PDOC ---
PROGRESS NOTES Chief Complaint Chief Complaint dyspnea, 2/2 acute on chronic diastolic and systolic CHF EF 40%, NSTEMI with chest pain, high trop h/o CAD with CABG dm2 HLD ppm left pleural effusion recent PNA with hemoptysis HARMEET, vasomotor , ckd3 HTN PLAN: fu with card, on heparin drip, trop 14, 10. Cath /, no PCI, need aggressive medical treatment. lasix changed to PO DAILY as per card. pt takes 40mg po bid at home pulm consulted, add levaquin cont home meds ssi echo done add cough meds, albuterol prn checked CXR ok transfer out of ICU History of Present Illness History of Present Illness came for sob, chest pain, hemoptysis with recent PNA. no Fever, chills came for chest substernal pain, sob, trop 14. cath 05/22 showed diffuse stenosis, no PCI. 2/4 cabg patent recent PNA, has hemoptysis, resolved today cr better to 1.5 from 2.2 no home o2, now on NC Vitals Vitals Vital Signs Date Time Temp Pulse Resp B/P (MAP) Pulse Ox O2 Delivery O2 Flow Rate FiO2 05/23/18 11:00 99.3 64 19 141/61 (87) 96 Nasal Cannula 2.0 99.3 Physical Exam General: Alert, Oriented X3, Cooperative, moderate distress Heart: Regular rate, Normal S1, Normal S2 Lungs: Crackles Abdomen: Normal bowel sounds Extremities: No clubbing, No cyanosis, No edema Labs LABS Laboratory Tests Test 05/23/18 04:15 05/23/18 05:00 05/23/18 08:20 05/23/18 11:29 Sodium Level 144 mmol/L (136-145) Potassium Level 4.8 mmol/L (3.5-5.1) Chloride Level 111 mmol/L (98-107) Carbon Dioxide Level 27 mmol/L (21-32) Anion Gap 6 (6-14) Blood Urea Nitrogen 38 mg/dL (8-26) Creatinine 1.5 mg/dL (0.7-1.3) Estimated GFR (Cockcroft-Gault) 46.1 Glucose Level 102 mg/dL (70-99) Calcium Level 8.4 mg/dL (8.5-10.1) White Blood Count 4.7 x10^3/uL (4.0-11.0) Red Blood Count 3.19 x10^6/uL (4.30-5.70) Hemoglobin 9.7 g/dL (13.0-17.5) Hematocrit 29.7 % (39.0-53.0) Mean Corpuscular Volume 93 fL (79-100) Mean Corpuscular Hemoglobin 31 pg (25-35) Mean Corpuscular Hemoglobin Concent 33 g/dL (31-37) Red Cell Distribution Width 15.2 % (11.5-14.5) Platelet Count 182 x10^3/uL (140-400) Neutrophils (%) (Auto) 76 % (31-73) Lymphocytes (%) (Auto) 9 % (24-48) Monocytes (%) (Auto) 11 % (0-9) Eosinophils (%) (Auto) 4 % (0-3) Basophils (%) (Auto) 0 % (0-3) Neutrophils # (Auto) 3.5 x10^3uL (1.8-7.7) Lymphocytes # (Auto) 0.4 x10^3/uL (1.0-4.8) Monocytes # (Auto) 0.5 x10^3/uL (0.0-1.1) Eosinophils # (Auto) 0.2 x10^3/uL (0.0-0.7) Basophils # (Auto) 0.0 x10^3/uL (0.0-0.2) Glucose (Fingerstick) 97 mg/dL (70-99) 131 mg/dL (70-99) Assessment and Plan Assessmemt and Plan Problems Medical Problems: (1) Acute CHF Status: Acute (2) Pulmonary edema Status: Acute (3) Renal insufficiency Status: Acute Comment Review of Relevant I have reviewed the following items marina (where applicable) has been applied. Labs Laboratory Tests Test 05/21/18 13:31 05/21/18 13:35 05/21/18 13:39 05/21/18 15:15 White Blood Count 7.0 x10^3/uL (4.0-11.0) Red Blood Count 3.84 x10^6/uL (4.30-5.70) Hemoglobin 11.8 g/dL (13.0-17.5) Hematocrit 36.5 % (39.0-53.0) Mean Corpuscular Volume 95 fL (79-100) Mean Corpuscular Hemoglobin 31 pg (25-35) Mean Corpuscular Hemoglobin Concent 32 g/dL (31-37) Red Cell Distribution Width 15.7 % (11.5-14.5) Platelet Count 258 x10^3/uL (140-400) Neutrophils (%) (Auto) 89 % (31-73) Lymphocytes (%) (Auto) 6 % (24-48) Monocytes (%) (Auto) 3 % (0-9) Eosinophils (%) (Auto) 2 % (0-3) Basophils (%) (Auto) 1 % (0-3) Neutrophils # (Auto) 6.2 x10^3uL (1.8-7.7) Lymphocytes # (Auto) 0.4 x10^3/uL (1.0-4.8) Monocytes # (Auto) 0.2 x10^3/uL (0.0-1.1) Eosinophils # (Auto) 0.1 x10^3/uL (0.0-0.7) Basophils # (Auto) 0.0 x10^3/uL (0.0-0.2) Segmented Neutrophils % 86 % (35-66) Band Neutrophils % 1 % (0-9) Lymphocytes % 7 % (24-48) Monocytes % 4 % (0-10) Basophils % 2 % (0-3) Toxic Granulation Slight Platelet Estimate Adequate (ADEQUATE) Polychromasia Slight Sodium Level 144 mmol/L (136-145) Potassium Level 5.9 mmol/L (3.5-5.1) Chloride Level 111 mmol/L (98-107) Carbon Dioxide Level 22 mmol/L (21-32) Anion Gap 11 (6-14) 14 mmol/L (6-14) Blood Urea Nitrogen 51 mg/dL (8-26) Creatinine 2.2 mg/dL (0.7-1.3) Estimated GFR (Cockcroft-Gault) 29.7 BUN/Creatinine Ratio 23 (6-20) Glucose Level 295 mg/dL (70-99) 282 mg/dL (70-99) Calcium Level 8.9 mg/dL (8.5-10.1) Total Bilirubin 0.4 mg/dL (0.2-1.0) Aspartate Amino Transf (AST/SGOT) 27 U/L (15-37) Alanine Aminotransferase (ALT/SGPT) 29 U/L (16-63) Alkaline Phosphatase 173 U/L (46-116) Creatine Kinase 101 U/L (39-308) Creatine Kinase MB (Mass) 3.7 ng/mL (0.0-3.6) Creatine Kinase MB Relative Index 3.7 % (0-4) Total Protein 7.8 g/dL (6.4-8.2) Albumin 3.1 g/dL (3.4-5.0) Albumin/Globulin Ratio 0.7 (1.0-1.7) Bedside Troponin I 0.17 ng/ml (<0.08) Bedside Hemoglobin 12.9 g/dL (14-18) Bedside Hematocrit 38 % (37-52) Bedside Sodium 144 mmol/L (135-145) Bedside Potassium 5.8 mmol/L (3.5-5.0) Bedside Chloride 115 mmol/L (98-110) Bedside Total CO2 22 mmol/L (23-32) Bedside Blood Urea Nitrogen 48 mg/dL (8-26) Bedside Creatinine 2.1 mg/dL (0.5-1.4) Bedside Ionized Calcium (Craig) 1.15 mmol/L (1.13-1.32) O2 Saturation 93 % (92-99) Arterial Blood pH 7.27 (7.35-7.45) Arterial Blood pCO2 at Patient Temp 40 mmHg (35-46) Arterial Blood pO2 at Patient Temp 74 mmHg (65-108) Arterial Blood HCO3 18 mmol/L (21-28) Arterial Blood Base Excess -8 mmol/L (-3-3) FiO2 Test 05/21/18 16:00 05/21/18 17:10 05/21/18 20:55 05/22/18 08:00 Nasal Screen MRSA (PCR) Positive (Negative) Troponin I Quantitative 14.838 ng/mL (0.000-0.055) 10.255 ng/mL (0.000-0.055) Heparin Anti-Xa Act, Unfractionated 0.69 IU/mL (0.30-0.70) 0.23 IU/mL (0.30-0.70) White Blood Count 6.0 x10^3/uL (4.0-11.0) Red Blood Count 3.22 x10^6/uL (4.30-5.70) Hemoglobin 10.0 g/dL (13.0-17.5) Hematocrit 29.7 % (39.0-53.0) Mean Corpuscular Volume 92 fL (79-100) Mean Corpuscular Hemoglobin 31 pg (25-35) Mean Corpuscular Hemoglobin Concent 34 g/dL (31-37) Red Cell Distribution Width 14.9 % (11.5-14.5) Platelet Count 202 x10^3/uL (140-400) Sodium Level 146 mmol/L (136-145) Potassium Level 4.9 mmol/L (3.5-5.1) Chloride Level 114 mmol/L (98-107) Carbon Dioxide Level 24 mmol/L (21-32) Anion Gap 8 (6-14) Blood Urea Nitrogen 45 mg/dL (8-26) Creatinine 1.8 mg/dL (0.7-1.3) Estimated GFR (Cockcroft-Gault) 37.4 Glucose Level 116 mg/dL (70-99) Calcium Level 8.4 mg/dL (8.5-10.1) Magnesium Level 2.6 mg/dL (1.8-2.4) Triglycerides Level 60 mg/dL (0-150) Cholesterol Level 96 mg/dL (0-200) LDL Cholesterol, Calculated 29 mg/dL (0-100) VLDL Cholesterol, Calculated 12 mg/dL (0-40) Non-HDL Cholesterol Calculated 41 mg/dL (0-129) HDL Cholesterol 55 mg/dL (40-60) Cholesterol/HDL Ratio 1.7 Test 05/23/18 04:15 05/23/18 05:00 05/23/18 08:20 05/23/18 11:29 Sodium Level 144 mmol/L (136-145) Potassium Level 4.8 mmol/L (3.5-5.1) Chloride Level 111 mmol/L (98-107) Carbon Dioxide Level 27 mmol/L (21-32) Anion Gap 6 (6-14) Blood Urea Nitrogen 38 mg/dL (8-26) Creatinine 1.5 mg/dL (0.7-1.3) Estimated GFR (Cockcroft-Gault) 46.1 Glucose Level 102 mg/dL (70-99) Calcium Level 8.4 mg/dL (8.5-10.1) White Blood Count 4.7 x10^3/uL (4.0-11.0) Red Blood Count 3.19 x10^6/uL (4.30-5.70) Hemoglobin 9.7 g/dL (13.0-17.5) Hematocrit 29.7 % (39.0-53.0) Mean Corpuscular Volume 93 fL (79-100) Mean Corpuscular Hemoglobin 31 pg (25-35) Mean Corpuscular Hemoglobin Concent 33 g/dL (31-37) Red Cell Distribution Width 15.2 % (11.5-14.5) Platelet Count 182 x10^3/uL (140-400) Neutrophils (%) (Auto) 76 % (31-73) Lymphocytes (%) (Auto) 9 % (24-48) Monocytes (%) (Auto) 11 % (0-9) Eosinophils (%) (Auto) 4 % (0-3) Basophils (%) (Auto) 0 % (0-3) Neutrophils # (Auto) 3.5 x10^3uL (1.8-7.7) Lymphocytes # (Auto) 0.4 x10^3/uL (1.0-4.8) Monocytes # (Auto) 0.5 x10^3/uL (0.0-1.1) Eosinophils # (Auto) 0.2 x10^3/uL (0.0-0.7) Basophils # (Auto) 0.0 x10^3/uL (0.0-0.2) Glucose (Fingerstick) 97 mg/dL (70-99) 131 mg/dL (70-99) Laboratory Tests Test 05/23/18 04:15 05/23/18 05:00 05/23/18 08:20 05/23/18 11:29 Sodium Level 144 mmol/L (136-145) Potassium Level 4.8 mmol/L (3.5-5.1) Chloride Level 111 mmol/L (98-107) Carbon Dioxide Level 27 mmol/L (21-32) Anion Gap 6 (6-14) Blood Urea Nitrogen 38 mg/dL (8-26) Creatinine 1.5 mg/dL (0.7-1.3) Estimated GFR (Cockcroft-Gault) 46.1 Glucose Level 102 mg/dL (70-99) Calcium Level 8.4 mg/dL (8.5-10.1) White Blood Count 4.7 x10^3/uL (4.0-11.0) Red Blood Count 3.19 x10^6/uL (4.30-5.70) Hemoglobin 9.7 g/dL (13.0-17.5) Hematocrit 29.7 % (39.0-53.0) Mean Corpuscular Volume 93 fL (79-100) Mean Corpuscular Hemoglobin 31 pg (25-35) Mean Corpuscular Hemoglobin Concent 33 g/dL (31-37) Red Cell Distribution Width 15.2 % (11.5-14.5) Platelet Count 182 x10^3/uL (140-400) Neutrophils (%) (Auto) 76 % (31-73) Lymphocytes (%) (Auto) 9 % (24-48) Monocytes (%) (Auto) 11 % (0-9) Eosinophils (%) (Auto) 4 % (0-3) Basophils (%) (Auto) 0 % (0-3) Neutrophils # (Auto) 3.5 x10^3uL (1.8-7.7) Lymphocytes # (Auto) 0.4 x10^3/uL (1.0-4.8) Monocytes # (Auto) 0.5 x10^3/uL (0.0-1.1) Eosinophils # (Auto) 0.2 x10^3/uL (0.0-0.7) Basophils # (Auto) 0.0 x10^3/uL (0.0-0.2) Glucose (Fingerstick) 97 mg/dL (70-99) 131 mg/dL (70-99) Medications Current Medications Furosemide (Lasix) 40 mg 1X ONCE IV Last administered on 05/21/18at 13:54; Start 05/21/18 at 13:45; Stop 05/21/18 at 13:46; Status DC Nitroglycerin/ Dextrose 250 ml @ 3 mls/hr 1X ONCE IV Last administered on at 13:54; Start 05/21/18 at 13:45; Stop 05/21/18 at 21:10; Status DC Morphine Sulfate (Morphine Sulfate) 2 mg 1X ONCE IV ; Start 05/21/18 at 13:45; Stop 05/21/18 at 13:46; Status DC Morphine Sulfate (Morphine Sulfate) 2 mg 1X ONCE IM ; Start 05/21/18 at 13:45; Stop 05/21/18 at 13:46; Status DC Heparin Sodium/ Dextrose 500 ml @ 0 mls/hr CONT PRN IV SEE I/O RECORD Last administered on 05/21/18at 14:34; Start 05/21/18 at 14:15 Heparin Sodium (Porcine) (Heparin Sodium) 2,700 unit PRN Q6HRS PRN IV FOR UFH LEVEL LESS THAN 0.2; Start 05/21/18 at 14:15 Aspirin (Ecotrin) 325 mg DAILYWBKFT PO Last administered on 05/23/18at 08:30; Start 05/21/18 at 17:00 Atorvastatin Calcium (Lipitor) 20 mg QHS PO Last administered on 05/22/18at 21:16 ; Start 05/21/18 at 21:00 Aspirin (Children'S Aspirin) 81 mg DAILYAC PO ; Start 05/22/18 at 07:30; Stop 05/22/18 at 07:30; Status DC Atorvastatin Calcium (Lipitor) 20 mg HS PO ; Start 05/21/18 at 21:00; Status UNV Furosemide (Lasix) 40 mg [id number] PO ; Start 05/22/18 at 09:00; Stop 05/22/18 at 09: 00; Status DC Non-Formulary Medication (Glipizide ) 1 tab BID PO ; Start 05/21/18 at 21:00; Stop 05/21/18 at 21:00; Status DC Losartan Potassium (Cozaar) 100 mg DAILY PO ; Start 05/21/18 at 18:00; Stop at 18:08; Status DC Pioglitazone HCl (Actos) 30 mg DAILY PO ; Start 05/22/18 at 09:00; Stop 05/22/18 at 09:00; Status DC Potassium Chloride (Klor-Con) 20 meq BIDWMEALS PO ; Start 05/22/18 at 08:00; Stop 05/22/18 at 08:00; Status DC Non-Formulary Medication (Spironolactone ) 1 tab DAILY PO ; Start 05/22/18 at 09: 00; Stop 05/22/18 at 09:00; Status DC Info (Anti-Coagulation Monitoring By Pharmacy) 1 each PRN DAILY PRN MC SEE COMMENTS Last administered on 05/22/18at 13:00; Start 05/21/18 at 17:45 Morphine Sulfate (Morphine Sulfate) 2 mg PRN Q2HR PRN IV PAIN Last administered on 05/21/18at 18:53; Start 05/21/18 at 18:15 Nitroglycerin/ Dextrose 250 ml @ 1.5 mls/hr CONT PRN IV SEE I/O RECORD Last administered on 05/22/18at 22:42; Start 05/21/18 at 21:15 Lorazepam (Ativan) 1 mg PRN Q4HRS PRN IV ANXIETY / AGITATION; Start 05/21/18 at 21:15 Albuterol Sulfate (Ventolin Neb Soln) 2.5 mg PRN Q4HRS PRN NEB SHORTNESS OF BREATH Last administered on 05/21/18at 22:01; Start 05/21/18 at 21:15 Acetaminophen (Tylenol) 650 mg PRN Q6HRS PRN PO FEVER; Start 05/22/18 at 09:30 Ondansetron HCl (Zofran) 4 mg PRN Q6HRS PRN IV NAUSEA/VOMITING; Start 05/22/18 at 09:30 Morphine Sulfate (Morphine Sulfate) 2 mg PRN Q2HR PRN IV PAIN; Start 05/22/18 at 09:45; Stop 05/23/18 at 09:29; Status DC Tramadol HCl (Ultram) 50 mg PRN Q6HRS PRN PO MILD TO MODERATE PAIN; Start at 09:30 Hydralazine HCl (Apresoline Inj) 10 mg PRN Q4HRS PRN IVP ELEVATED BP, SEE COMMENTS; Start 05/22/18 at 09:30 Docusate Sodium (Colace) 100 mg PRN DAILY PRN PO CONSTIPATION; Start 05/22/18 at 09:30 Sodium Chloride 1,000 ml @ 30 mls/hr 1X ONCE IV Last administered on at 13:05; Start 05/22/18 at 10:00; Stop 05/23/18 at 19:19 Lidocaine HCl (Xylocaine-Mpf 1% 2ml Vial) 2 ml STK-MED ONCE .ROUTE ; Start at 11:40; Stop 05/22/18 at 11:41; Status DC Heparin Sodium/ Sodium Chloride 1,000 ml @ As Directed STK-MED ONCE .ROUTE ; Start 05/22/18 at 11:40; Stop 05/22/18 at 11:41; Status DC Insulin Human Lispro (HumaLOG) 0-9 UNITS TIDWMEALS SQ ; Start 05/22/18 at 17:00 Dextrose (Dextrose 50%-Water Syringe) 12.5 gm PRN Q15MIN PRN IV SEE COMMENTS; Start 05/22/18 at 12:30 Benzonatate (Tessalon Perle) 100 mg [id number] PO Last administered on 05/23/18at 08: 31; Start 05/22/18 at 14:00 Guaifenesin (Robitussin) 200 mg PRN Q4HRS PRN PO COUGH; Start 05/22/18 at 12:30 Furosemide (Lasix) 40 mg 1X ONCE IVP Last administered on 05/22/18at 13:05; Start 05/22/18 at 12:30; Stop 05/22/18 at 12:35; Status DC Levofloxacin/ Dextrose 50 ml @ 50 mls/hr Q24H IV Last administered on 05/22/18at 14:00; Start 05/22/18 at 14:00 Lidocaine HCl (Xylocaine 1% Pf 30ml Vial) 30 ml STK-MED ONCE .ROUTE ; Start 05/22 at 13:30; Stop 05/22/18 at 13:32; Status DC Fentanyl Citrate (Fentanyl 2ml Vial) 100 mcg STK-MED ONCE .ROUTE ; Start at 13:32; Stop 05/22/18 at 13:34; Status DC Midazolam HCl (Versed) 2 mg STK-MED ONCE .ROUTE ; Start 05/22/18 at 13:32; Stop 05/22/18 at 13:34; Status DC Heparin Sodium/ Sodium Chloride (HEPARIN for ARTERIAL LINE FLUSH) 1,000 unit 1X ONCE IART Last administered on 05/22/18at 14:00; Start 05/22/18 at 14:00; Stop 05/22/18 at 14:01; Status DC Heparin Sodium/ Sodium Chloride (HEPARIN for ARTERIAL LINE FLUSH) 1,000 unit 1X ONCE IART Last administered on 05/22/18at 14:00; Start 05/22/18 at 14:00; Stop 05/22/18 at 14:01; Status DC Midazolam HCl (Versed) 2 mg 1X ONCE IV Last administered on 05/22/18at 14:00; Start 05/22/18 at 14:00; Stop 05/22/18 at 14:01; Status DC Fentanyl Citrate (Fentanyl 2ml Vial) 100 mcg 1X ONCE IV Last administered on at 14:00; Start 05/22/18 at 14:00; Stop 05/22/18 at 14:01; Status DC Iodixanol (Visipaque 320) 100 ml 1X ONCE IART Last administered on 05/22/18at 14 :00; Start 05/22/18 at 14:00; Stop 05/22/18 at 14:01; Status DC Lidocaine HCl (Xylocaine 1% Pf 30ml Vial) 16 ml 1X ONCE INJ Last administered on 05/22/18at 14:00; Start 05/22/18 at 14:00; Stop 05/22/18 at 14:01; Status DC Info (CONTRAST GIVEN -- Rx MONITORING) 1 each PRN DAILY PRN MC SEE COMMENTS; Start 05/22/18 at 14:00; Stop 05/24/18 at 13:59 Clopidogrel Bisulfate (Plavix) 75 mg DAILYWBKFT PO Last administered on at 08:31; Start 05/22/18 at 16:00 Isosorbide Mononitrate (Imdur) 60 mg DAILY PO Last administered on 05/23/18at 08: 31; Start 05/22/18 at 16:00 Hydralazine HCl (Apresoline) 25 mg BID PO Last administered on 05/23/18at 08:32; Start 05/22/18 at 21:00 Furosemide (Lasix) 40 mg DAILY PO ; Start 05/23/18 at 09:00; Stop 05/23/18 at 09: 00; Status DC Furosemide (Lasix) 40 mg DAILY PO ; Start 05/24/18 at 09:00 Furosemide (Lasix) 40 mg 1X ONCE IVP Last administered on 05/23/18at 08:32; Start 05/23/18 at 08:00; Stop 05/23/18 at 08:05; Status DC Lactobacillus Rhamnosus (Culturelle) 1 cap BID PO ; Start 05/23/18 at 21:00 Active Scripts Active Reported Spironolactone 50 Mg Tablet 1 Tab PO DAILY Furosemide 40 Mg Tablet 40 Mg PO BID Potassium Chloride 20 Meq Tablet.er 20 Meq PO BID Actos (Pioglitazone Hcl) 30 Mg Tablet 1 Tab PO DAILY Losartan Potassium 100 Mg Tablet 100 Mg PO DAILY Atorvastatin Calcium 20 Mg Tablet 20 Mg PO HS Aspirin 81 Mg Tab.chew 81 Mg PO DAILYAC Glipizide 10 Mg Tablet 1 Tab PO BID Vitals/I & O Vital Sign - Last 24 Hours 05/22/18 05/22/18 05/22/18 05/22/18 14:00 14:16 14:30 15:00 Pulse 70 68 Resp 22 20 26 B/P (MAP) 139/65 (89) Pulse Ox 93 93 96 O2 Delivery Venturi Mask Venturi Mask Venturi Mask O2 Flow Rate 15.0 15.0 05/22/18 05/22/18 05/22/18 05/22/18 18:06 20:00 20:01 20:30 Temp 97.0 97.0 Pulse 77 70 74 Resp 24 B/P (MAP) 154/66 140/61 (87) 153/63 (93) Pulse Ox 96 96 O2 Delivery Venturi Mask Venturi Mask Venturi Mask 05/22/18 05/22/18 05/23/18 05/23/18 21:17 23:00 00:00 01:00 Temp 97.0 97.0 Pulse 83 76 70 70 Resp 22 B/P (MAP) 158/67 142/63 (89) 148/67 (94) 148/64 (92) Pulse Ox 97 98 96 O2 Delivery Venturi Mask Venturi Mask Venturi Mask 05/23/18 05/23/18 05/23/18 05/23/18 03:00 03:30 07:00 08:00 Temp 98.1 98.1 Pulse 68 68 64 Resp 24 18 16 B/P (MAP) 134/58 (83) 149/68 (95) 141/77 (98) Pulse Ox 98 98 98 O2 Delivery Venturi Mask Venturi Mask Venturi Mask Nasal Cannula O2 Flow Rate 2.0 05/23/18 05/23/18 05/23/18 05/23/18 08:00 08:31 08:32 11:00 Temp 99.3 99.3 Pulse 64 64 64 Resp 19 B/P (MAP) 150/73 150/73 141/61 (87) Pulse Ox 96 O2 Delivery Nasal Cannula Nasal Cannula O2 Flow Rate 2.0 2.0 Intake and Output 05/22/18 05/22/18 05/23/18 15:01 23:01 07:01 Intake Total 1642 ml Output Total 2425 ml 1900 ml Balance -2425 ml -258 ml RAJI PARRISH MD May 23, 2018 12:15
--- NOTE | 2018-05-23 14:11 | RAD ---
EXAM: Chest, single view. HISTORY: Congestive heart failure. COMPARISON: 05/22/2018 FINDINGS: A frontal view of the chest obtained. There is stable mild pulmonary congestion with suspected superimposed small bilateral pleural effusions. There is evidence of prior CABG. There is a cardiac pacemaker with leads in expected position. There is no pneumothorax. IMPRESSION: Stable pulmonary congestion with superimposed small pleural effusions. Electronically signed by: Britni Rosa MD (05/23/2018 2:07 PM) [place] [id number]
--- NOTE | 2018-05-23 16:16 | NUR ---
SS following up with discharge planning. Pt provided with BP letter.
--- NOTE | 2018-05-23 18:26 | PDOC ---
KELLY SERRANO RETREAD OPERATOR 05/23/18 1826: CARDIO Progress Notes Date and Time Date of Service 05/23/2018 Time of Evaluation 1800 Subjective Subjective: No Chest Pain, No shortness of breath, No Palpitations Vitals Vitals Vital Signs Date Time Temp Pulse Resp B/P (MAP) Pulse Ox O2 Delivery O2 Flow Rate FiO2 05/23/18 15:00 99.6 74 27 157/66 (96) 95 Nasal Cannula 2.0 99.6 Weight Weight [ ] Input and Output Intake and Output Intake and Output 05/23/18 07:01 Intake Total 1642 ml Output Total 4325 ml Balance -2683 ml Intake Oral 740 ml IV Total 902 ml Output Urine Total 4325 ml Laboratory Labs Laboratory Tests Test 05/23/18 04:15 05/23/18 05:00 05/23/18 08:20 05/23/18 11:29 Sodium Level 144 mmol/L (136-145) Potassium Level 4.8 mmol/L (3.5-5.1) Chloride Level 111 mmol/L (98-107) Carbon Dioxide Level 27 mmol/L (21-32) Anion Gap 6 (6-14) Blood Urea Nitrogen 38 mg/dL (8-26) Creatinine 1.5 mg/dL (0.7-1.3) Estimated GFR (Cockcroft-Gault) 46.1 Glucose Level 102 mg/dL (70-99) Calcium Level 8.4 mg/dL (8.5-10.1) White Blood Count 4.7 x10^3/uL (4.0-11.0) Red Blood Count 3.19 x10^6/uL (4.30-5.70) Hemoglobin 9.7 g/dL (13.0-17.5) Hematocrit 29.7 % (39.0-53.0) Mean Corpuscular Volume 93 fL (79-100) Mean Corpuscular Hemoglobin 31 pg (25-35) Mean Corpuscular Hemoglobin Concent 33 g/dL (31-37) Red Cell Distribution Width 15.2 % (11.5-14.5) Platelet Count 182 x10^3/uL (140-400) Neutrophils (%) (Auto) 76 % (31-73) Lymphocytes (%) (Auto) 9 % (24-48) Monocytes (%) (Auto) 11 % (0-9) Eosinophils (%) (Auto) 4 % (0-3) Basophils (%) (Auto) 0 % (0-3) Neutrophils # (Auto) 3.5 x10^3uL (1.8-7.7) Lymphocytes # (Auto) 0.4 x10^3/uL (1.0-4.8) Monocytes # (Auto) 0.5 x10^3/uL (0.0-1.1) Eosinophils # (Auto) 0.2 x10^3/uL (0.0-0.7) Basophils # (Auto) 0.0 x10^3/uL (0.0-0.2) Glucose (Fingerstick) 97 mg/dL (70-99) 131 mg/dL (70-99) Test 05/23/18 17:28 Glucose (Fingerstick) 118 mg/dL (70-99) Physical Exam HEENT: Neck Supple W Full Motion Chest: Symmetric LUNGS: Clear to Auscultation Heart: S1S2, RRR (paced) Abdomen: Soft N/T Extremities: No Calf Tenderness Neurology: alert, oriented, follow commands Assessment Assessment 1. NSTEMI: peaked trop 14 likely culprit is severe diffuse small vessel disease 2. CAD: LHC as noted above otherwise no significant changes by comparison 3. HARMEET on CKD: Cr 1.8 better K better 4. Acute diastolic/systolic CHF:excellent UOP, compensated. 5. DM2 6. HTN Recommendations 1. Intensify BP control, increase hydralazine, continue nitrate. Transition to PO lasix. 2. Continue secondary prevention measures 3, ASA, plavix LAUREN MERRITT MD 05/24/18 0724: CARDIO Progress Notes Plan Plan Pt. seen and examined. Agree with above RADIO EQUIPMENT INSTALLER note. Late entry for 05/23/2018 Pt. feeling much better after 5L diuresis Continue medication optimization. KELLY SERRANO APRN May 23, 2018 18:26 LAUREN MERRITT MD May 24, 2018 07:24
[2018-05-23] MEDS: LACTOBACILLUS RHAMNOSUS GG 1 CAPSULE. PO SCH (21:13)
[2018-05-23] MEDS: ATORVASTATIN CALCIUM 20 MG TABLET PO SCH (21:14)
[2018-05-24 03:01] VITALS: BP 145/69
[2018-05-24 04:30] LABS: BASO % 1 % (0-3); EOS # 0.2 x10^3/uL (0.0-0.7); EOS % 5 % (0-3); HEMATOCRIT 28.9 % (39.0-53.0); HEMOGLOBIN 9.7 g/dL (13.0-17.5); LYMPH # 0.4 x10^3/uL (1.0-4.8); LYMPH % 10 % (24-48); MEAN CORPUSCULAR HEMOGLOBIN 31 pg (25-35); MEAN CORPUSCULAR HGB CONC 33 g/dL (31-37); MEAN CORPUSCULAR VOLUME 92 fL (79-100); MONO # 0.4 x10^3/uL (0.0-1.1); MONO % 9 % (0-9); NEUT # 3.5 x10^3uL (1.8-7.7); NEUT % 75 % (31-73); PLATELET COUNT 187 x10^3/uL (140-400); RED BLOOD COUNT 3.14 x10^6/uL (4.30-5.70); RED CELL DISTRIBUTION WIDTH 14.5 % (11.5-14.5); WHITE BLOOD COUNT 4.6 x10^3/uL (4.0-11.0)
[2018-05-24 04:40] LABS: CALCIUM 8.7 mg/dL (8.5-10.1); CREATININE 1.6 mg/dL (0.7-1.3); GFR 42.8; POTASSIUM 4.2 mmol/L (3.5-5.1)
[2018-05-24 07:00] VITALS: BP 151/64
--- NOTE | 2018-05-24 07:44 | PDOC ---
PULMONARY PROGRESS NOTES Subjective NO INCREASE SOA Vitals Vital Signs Date Time Temp Pulse Resp B/P (MAP) Pulse Ox O2 Delivery O2 Flow Rate FiO2 05/24/18 03:01 98.0 65 19 145/69 (94) 96 Nasal Cannula 2.0 98.0 ROS: No Nausea, No Chest Pain, No Abdominal Pain General: Alert Lungs: Crackles Cardiovascular: S1, S2 Abdomen: Soft Neuro Exam: Alert Extremities: No Edema Skin: Warm Labs Laboratory Tests Test 05/22/18 08:00 05/23/18 04:15 05/23/18 05:00 05/23/18 08:20 White Blood Count 6.0 x10^3/uL (4.0-11.0) 4.7 x10^3/uL (4.0-11.0) Red Blood Count 3.22 x10^6/uL (4.30-5.70) 3.19 x10^6/uL (4.30-5.70) Hemoglobin 10.0 g/dL (13.0-17.5) 9.7 g/dL (13.0-17.5) Hematocrit 29.7 % (39.0-53.0) 29.7 % (39.0-53.0) Mean Corpuscular Volume 92 fL (79-100) 93 fL (79-100) Mean Corpuscular Hemoglobin 31 pg (25-35) 31 pg (25-35) Mean Corpuscular Hemoglobin Concent 34 g/dL (31-37) 33 g/dL (31-37) Red Cell Distribution Width 14.9 % (11.5-14.5) 15.2 % (11.5-14.5) Platelet Count 202 x10^3/uL (140-400) 182 x10^3/uL (140-400) Heparin Anti-Xa Act, Unfractionated 0.23 IU/mL (0.30-0.70) Sodium Level 146 mmol/L (136-145) 144 mmol/L (136-145) Potassium Level 4.9 mmol/L (3.5-5.1) 4.8 mmol/L (3.5-5.1) Chloride Level 114 mmol/L (98-107) 111 mmol/L (98-107) Carbon Dioxide Level 24 mmol/L (21-32) 27 mmol/L (21-32) Anion Gap 8 (6-14) 6 (6-14) Blood Urea Nitrogen 45 mg/dL (8-26) 38 mg/dL (8-26) Creatinine 1.8 mg/dL (0.7-1.3) 1.5 mg/dL (0.7-1.3) Estimated GFR (Cockcroft-Gault) 37.4 46.1 Glucose Level 116 mg/dL (70-99) 102 mg/dL (70-99) Calcium Level 8.4 mg/dL (8.5-10.1) 8.4 mg/dL (8.5-10.1) Magnesium Level 2.6 mg/dL (1.8-2.4) Troponin I Quantitative 10.255 ng/mL (0.000-0.055) Triglycerides Level 60 mg/dL (0-150) Cholesterol Level 96 mg/dL (0-200) LDL Cholesterol, Calculated 29 mg/dL (0-100) VLDL Cholesterol, Calculated 12 mg/dL (0-40) Non-HDL Cholesterol Calculated 41 mg/dL (0-129) HDL Cholesterol 55 mg/dL (40-60) Cholesterol/HDL Ratio 1.7 Neutrophils (%) (Auto) 76 % (31-73) Lymphocytes (%) (Auto) 9 % (24-48) Monocytes (%) (Auto) 11 % (0-9) Eosinophils (%) (Auto) 4 % (0-3) Basophils (%) (Auto) 0 % (0-3) Neutrophils # (Auto) 3.5 x10^3uL (1.8-7.7) Lymphocytes # (Auto) 0.4 x10^3/uL (1.0-4.8) Monocytes # (Auto) 0.5 x10^3/uL (0.0-1.1) Eosinophils # (Auto) 0.2 x10^3/uL (0.0-0.7) Basophils # (Auto) 0.0 x10^3/uL (0.0-0.2) Glucose (Fingerstick) 97 mg/dL (70-99) Test 05/23/18 11:29 05/23/18 17:28 05/23/18 20:45 05/24/18 03:30 Glucose (Fingerstick) 131 mg/dL (70-99) 118 mg/dL (70-99) 131 mg/dL (70-99) White Blood Count 4.6 x10^3/uL (4.0-11.0) Red Blood Count 3.14 x10^6/uL (4.30-5.70) Hemoglobin 9.7 g/dL (13.0-17.5) Hematocrit 28.9 % (39.0-53.0) Mean Corpuscular Volume 92 fL (79-100) Mean Corpuscular Hemoglobin 31 pg (25-35) Mean Corpuscular Hemoglobin Concent 33 g/dL (31-37) Red Cell Distribution Width 14.5 % (11.5-14.5) Platelet Count 187 x10^3/uL (140-400) Neutrophils (%) (Auto) 75 % (31-73) Lymphocytes (%) (Auto) 10 % (24-48) Monocytes (%) (Auto) 9 % (0-9) Eosinophils (%) (Auto) 5 % (0-3) Basophils (%) (Auto) 1 % (0-3) Neutrophils # (Auto) 3.5 x10^3uL (1.8-7.7) Lymphocytes # (Auto) 0.4 x10^3/uL (1.0-4.8) Monocytes # (Auto) 0.4 x10^3/uL (0.0-1.1) Eosinophils # (Auto) 0.2 x10^3/uL (0.0-0.7) Basophils # (Auto) 0.0 x10^3/uL (0.0-0.2) Sodium Level 142 mmol/L (136-145) Potassium Level 4.2 mmol/L (3.5-5.1) Chloride Level 108 mmol/L (98-107) Carbon Dioxide Level 26 mmol/L (21-32) Anion Gap 8 (6-14) Blood Urea Nitrogen 35 mg/dL (8-26) Creatinine 1.6 mg/dL (0.7-1.3) Estimated GFR (Cockcroft-Gault) 42.8 Glucose Level 96 mg/dL (70-99) Calcium Level 8.7 mg/dL (8.5-10.1) Laboratory Tests Test 05/23/18 08:20 05/23/18 11:29 05/23/18 17:28 05/23/18 20:45 Glucose (Fingerstick) 97 mg/dL (70-99) 131 mg/dL (70-99) 118 mg/dL (70-99) 131 mg/dL (70-99) Test 05/24/18 03:30 White Blood Count 4.6 x10^3/uL (4.0-11.0) Red Blood Count 3.14 x10^6/uL (4.30-5.70) Hemoglobin 9.7 g/dL (13.0-17.5) Hematocrit 28.9 % (39.0-53.0) Mean Corpuscular Volume 92 fL (79-100) Mean Corpuscular Hemoglobin 31 pg (25-35) Mean Corpuscular Hemoglobin Concent 33 g/dL (31-37) Red Cell Distribution Width 14.5 % (11.5-14.5) Platelet Count 187 x10^3/uL (140-400) Neutrophils (%) (Auto) 75 % (31-73) Lymphocytes (%) (Auto) 10 % (24-48) Monocytes (%) (Auto) 9 % (0-9) Eosinophils (%) (Auto) 5 % (0-3) Basophils (%) (Auto) 1 % (0-3) Neutrophils # (Auto) 3.5 x10^3uL (1.8-7.7) Lymphocytes # (Auto) 0.4 x10^3/uL (1.0-4.8) Monocytes # (Auto) 0.4 x10^3/uL (0.0-1.1) Eosinophils # (Auto) 0.2 x10^3/uL (0.0-0.7) Basophils # (Auto) 0.0 x10^3/uL (0.0-0.2) Sodium Level 142 mmol/L (136-145) Potassium Level 4.2 mmol/L (3.5-5.1) Chloride Level 108 mmol/L (98-107) Carbon Dioxide Level 26 mmol/L (21-32) Anion Gap 8 (6-14) Blood Urea Nitrogen 35 mg/dL (8-26) Creatinine 1.6 mg/dL (0.7-1.3) Estimated GFR (Cockcroft-Gault) 42.8 Glucose Level 96 mg/dL (70-99) Calcium Level 8.7 mg/dL (8.5-10.1) Medications Active Scripts Medications Dose Route/Sig Max Daily Dose Days Date Category Spironolactone 50 Mg Tablet 1 Tab PO DAILY 12/19/17 Reported Furosemide 40 Mg Tablet 40 Mg PO BID 07/15/17 Reported Potassium Chloride 20 Meq Tablet.er 20 Meq PO BID 07/15/17 Reported Actos (Pioglitazone Hcl) 30 Mg Tablet 1 Tab PO DAILY 07/15/17 Reported Losartan Potassium 100 Mg Tablet 100 Mg PO DAILY 07/15/17 Reported Atorvastatin Calcium 20 Mg Tablet 20 Mg PO HS 03/25/16 Reported Aspirin 81 Mg Tab.chew 81 Mg PO DAILYAC 05/06/15 Reported Glipizide 10 Mg Tablet 1 Tab PO BID 07/09/14 Reported Impression . IMPRESSION: 1. Acute hypoxemic respiratory failure secondary to acute congestive heart failure, possible pneumonia. 2. Abnormal x-ray compatible with left lower lobe atelectasis, infiltrate. 3. Coronary artery disease with previous coronary artery bypass grafting. 4. Elevated troponin. 5. Acute on chronic kidney failure. 6. Diabetes. 7. Morbid obesity. 8. Clinical signs of obstructive sleep apnea. 9. Morbid obesity. 10. Hemoptysis secondary to acute congestive heart failure. 11. Possible left-sided effusion. CXR REVIEWED NO SIGNIFICANT CHANGE CATH Conclusion 1. Elevated left ventricular filling pressures consistent with acute on chronic systolic/diastolic HF 2. HTN 3. Severe [place] three vessel CAD, unchanged from cath in 12/2017 4. Severe diffuse small vessel disease likely culprit for NSTEMI 5. 2/4 grafts patent. Recommendations Aggressive medical therapy. Plan . D/C OK FOLLOW UP IN OFFICE JUN PFT SLEEP STUDY ENID MAC MD May 24, 2018 07:44
[2018-05-24] MEDS: INSULIN LISPRO 300 UNITS/3 ML INSULN.PEN. SQ SCH ×2 (08:00→12:00)
[2018-05-24] MEDS: BENZONATATE 100 MG CAPSULE. PO SCH ×2 (08:53→14:00)
[2018-05-24] MEDS: CLOPIDOGREL BISULFATE 75 MG TABLET PO SCH (08:53)
[2018-05-24] MEDS: ASPIRIN ENTERIC COATED 325 MG TABLET.DR. PO SCH (08:54)
[2018-05-24] MEDS: LACTOBACILLUS RHAMNOSUS GG 1 CAPSULE. PO SCH (08:54)
[2018-05-24] MEDS: ISOSORBIDE MONONITRATE ER 30 MG TAB.ER.24H PO SCH (08:55)
[2018-05-24] MEDS ORDERED: FUROSEMIDE 40 MG TABLET. PO SCH (09:00)
--- NOTE | 2018-05-24 09:36 | PDOC ---
Provider Note Provider Note S: No new events. Feels better. O: VSS, BP 150/80 Ruy lower ext - venous stasis changes. 1+ edema. Lungs clear heart tones normal. Labs noted. DC meds as follows: 1. Lasix 40mg daily 2. Spironolactone 25mg daily 3. Toprol XL 25mg daily 4. Hydralazine 75mg bid 5. Imdur 60mg daily 6. Atorvastatin 20mg qhs 7. ASA 81mg daily 8. Plavix 75mg daily Ok to DC. pls call with questions. Thanks. LAUREN MERRITT MD May 24, 2018 09:36
[2018-05-24] MEDS ORDERED: METOPROLOL SUCC 24HR ER 25 MG TAB.ER.24H. PO ONE (10:00)
[2018-05-24] MEDS ORDERED: SPIRONOLACTONE 25 MG TABLET PO SCH (10:00)
[2018-05-24 11:00] VITALS: BP 148/74
[2018-05-24 11:44] VITALS: BP 148/74
[2018-05-24] MEDS ORDERED: HYDR-2869 PO (12:02)
[2018-05-24] MEDS ORDERED: CLOP75TA PO (12:02)
[2018-05-24] MEDS ORDERED: METO-239 PO (12:02)
[2018-05-24] MEDS ORDERED: ISOS30TA4 PO (12:02)
[2018-05-24] MEDS ORDERED: ATOR20TA58 PO (12:02)
[2018-05-24] MEDS ORDERED: FURO-68 PO (12:06)
[2018-05-24] MEDS ORDERED: SPIR25TA PO (12:07)
--- NOTE | 2018-05-24 12:50 | PDOC3 ---
Discharge Summary Visit Information Date of Admission: May 21, 2018 Date of Discharge: May 24, 2018 Admitting Diagnosis: Acute CHF exacerbation, Elevated troponin Final Diagnosis Problems Medical Problems: (1) Acute CHF Status: Acute (2) Pulmonary edema Status: Acute (3) Renal insufficiency Status: Acute Brief Hospital Course Allergies Allergies Coded Allergies Type Severity Reaction Last Updated Verified Penicillins Allergy Intermediate 07/18/17 Yes piperacillin Allergy Intermediate Rash 12/06/16 Yes tazobactam Allergy Intermediate Rash 12/06/16 Yes I S O L A T I O N *CONTACT* Allergy Unknown 05/23/18 Yes Vital Signs Vital Signs Date Time Temp Pulse Resp B/P (MAP) Pulse Ox O2 Delivery O2 Flow Rate FiO2 05/24/18 11:44 74 148/74 05/24/18 11:00 97.4 18 92 Nasal Cannula 2.0 97.4 Lab Results Laboratory Tests Test 05/23/18 04:15 05/23/18 05:00 05/23/18 08:20 05/23/18 11:29 Sodium Level 144 mmol/L (136-145) Potassium Level 4.8 mmol/L (3.5-5.1) Chloride Level 111 mmol/L (98-107) Carbon Dioxide Level 27 mmol/L (21-32) Anion Gap 6 (6-14) Blood Urea Nitrogen 38 mg/dL (8-26) Creatinine 1.5 mg/dL (0.7-1.3) Estimated GFR (Cockcroft-Gault) 46.1 Glucose Level 102 mg/dL (70-99) Calcium Level 8.4 mg/dL (8.5-10.1) White Blood Count 4.7 x10^3/uL (4.0-11.0) Red Blood Count 3.19 x10^6/uL (4.30-5.70) Hemoglobin 9.7 g/dL (13.0-17.5) Hematocrit 29.7 % (39.0-53.0) Mean Corpuscular Volume 93 fL (79-100) Mean Corpuscular Hemoglobin 31 pg (25-35) Mean Corpuscular Hemoglobin Concent 33 g/dL (31-37) Red Cell Distribution Width 15.2 % (11.5-14.5) Platelet Count 182 x10^3/uL (140-400) Neutrophils (%) (Auto) 76 % (31-73) Lymphocytes (%) (Auto) 9 % (24-48) Monocytes (%) (Auto) 11 % (0-9) Eosinophils (%) (Auto) 4 % (0-3) Basophils (%) (Auto) 0 % (0-3) Neutrophils # (Auto) 3.5 x10^3uL (1.8-7.7) Lymphocytes # (Auto) 0.4 x10^3/uL (1.0-4.8) Monocytes # (Auto) 0.5 x10^3/uL (0.0-1.1) Eosinophils # (Auto) 0.2 x10^3/uL (0.0-0.7) Basophils # (Auto) 0.0 x10^3/uL (0.0-0.2) Glucose (Fingerstick) 97 mg/dL (70-99) 131 mg/dL (70-99) Test 05/23/18 17:28 05/23/18 20:45 05/24/18 03:30 05/24/18 07:17 Glucose (Fingerstick) 118 mg/dL (70-99) 131 mg/dL (70-99) 92 mg/dL (70-99) White Blood Count 4.6 x10^3/uL (4.0-11.0) Red Blood Count 3.14 x10^6/uL (4.30-5.70) Hemoglobin 9.7 g/dL (13.0-17.5) Hematocrit 28.9 % (39.0-53.0) Mean Corpuscular Volume 92 fL (79-100) Mean Corpuscular Hemoglobin 31 pg (25-35) Mean Corpuscular Hemoglobin Concent 33 g/dL (31-37) Red Cell Distribution Width 14.5 % (11.5-14.5) Platelet Count 187 x10^3/uL (140-400) Neutrophils (%) (Auto) 75 % (31-73) Lymphocytes (%) (Auto) 10 % (24-48) Monocytes (%) (Auto) 9 % (0-9) Eosinophils (%) (Auto) 5 % (0-3) Basophils (%) (Auto) 1 % (0-3) Neutrophils # (Auto) 3.5 x10^3uL (1.8-7.7) Lymphocytes # (Auto) 0.4 x10^3/uL (1.0-4.8) Monocytes # (Auto) 0.4 x10^3/uL (0.0-1.1) Eosinophils # (Auto) 0.2 x10^3/uL (0.0-0.7) Basophils # (Auto) 0.0 x10^3/uL (0.0-0.2) Sodium Level 142 mmol/L (136-145) Potassium Level 4.2 mmol/L (3.5-5.1) Chloride Level 108 mmol/L (98-107) Carbon Dioxide Level 26 mmol/L (21-32) Anion Gap 8 (6-14) Blood Urea Nitrogen 35 mg/dL (8-26) Creatinine 1.6 mg/dL (0.7-1.3) Estimated GFR (Cockcroft-Gault) 42.8 Glucose Level 96 mg/dL (70-99) Calcium Level 8.7 mg/dL (8.5-10.1) Test 05/24/18 10:32 Glucose (Fingerstick) 163 mg/dL (70-99) Laboratory Tests Test 05/23/18 17:28 05/23/18 20:45 05/24/18 03:30 05/24/18 07:17 Glucose (Fingerstick) 118 mg/dL (70-99) 131 mg/dL (70-99) 92 mg/dL (70-99) White Blood Count 4.6 x10^3/uL (4.0-11.0) Red Blood Count 3.14 x10^6/uL (4.30-5.70) Hemoglobin 9.7 g/dL (13.0-17.5) Hematocrit 28.9 % (39.0-53.0) Mean Corpuscular Volume 92 fL (79-100) Mean Corpuscular Hemoglobin 31 pg (25-35) Mean Corpuscular Hemoglobin Concent 33 g/dL (31-37) Red Cell Distribution Width 14.5 % (11.5-14.5) Platelet Count 187 x10^3/uL (140-400) Neutrophils (%) (Auto) 75 % (31-73) Lymphocytes (%) (Auto) 10 % (24-48) Monocytes (%) (Auto) 9 % (0-9) Eosinophils (%) (Auto) 5 % (0-3) Basophils (%) (Auto) 1 % (0-3) Neutrophils # (Auto) 3.5 x10^3uL (1.8-7.7) Lymphocytes # (Auto) 0.4 x10^3/uL (1.0-4.8) Monocytes # (Auto) 0.4 x10^3/uL (0.0-1.1) Eosinophils # (Auto) 0.2 x10^3/uL (0.0-0.7) Basophils # (Auto) 0.0 x10^3/uL (0.0-0.2) Sodium Level 142 mmol/L (136-145) Potassium Level 4.2 mmol/L (3.5-5.1) Chloride Level 108 mmol/L (98-107) Carbon Dioxide Level 26 mmol/L (21-32) Anion Gap 8 (6-14) Blood Urea Nitrogen 35 mg/dL (8-26) Creatinine 1.6 mg/dL (0.7-1.3) Estimated GFR (Cockcroft-Gault) 42.8 Glucose Level 96 mg/dL (70-99) Calcium Level 8.7 mg/dL (8.5-10.1) Test 05/24/18 10:32 Glucose (Fingerstick) 163 mg/dL (70-99) Brief Hospital Course Mr. Duenas is a 72 old male who presented with symptoms of congestive heart failure and decompensation. He had also elevation of his troponin which peaked at 14. The patient was taken to the cardiac catheterization lab on May 22. In the following is a cardiac catheterization report Technologist: Henry Hernandze RT (R) Nurse: Tracey Mitchell R.N. Procedure(s) performed: 40 MINUTES SEDATION LHC, Coronary angiography, Bypass angiography HISTORY The patient is a 72 year-old male with a history of : coronary artery disease, tobacco history() , hypertension, dyslipidemia. INDICATION The indication(s) include : non-STEMI . PROCEDURE NARRATIVE After explaining the risks and benefits of the procedure and alternatives, informed consent was obtained. The patient was brought electively to the cardiac catheterization lab in a fasting state. A timeout was performed confirming the patient's name, date of , procedure, and site of procedure. All necessary personnel were wearing the appropriate protective equipment and radiation monitor devices. (See nursing notes for medications administered). The right groin was sterilely prepped and draped in the usual fashion. The right groin was infiltrated with 10 mL of 2% lidocaine for subcutaneous anesthesia. A 6 F sheath was inserted into the right femoral artery without difficulty. Right and left coronary angiography was performed using a JR4 and JL4 catheter. Bypass angiography performed with JR4 and MARIBELL catheters. Left ventricular end diastolic pressure was obtained with a pigtail catheter and pullback was performed and LV gram deferred due to CKD. All catheter exchanges and advancements were performed over a guidewire. At case completion the right femoral sheath was removed and hemostasis was achieved with an Angioseal Device after limited femoral angiography confirmed adequate vessel size and anatomy. There were no acute complications. HEMODYNAMICS: AO: 154/88 LVEDP 26 mm Hg No gradient on LV to aortic pullback. LEFT VENTRICULOGRAM: Deferred. CORONARY ANGIOGRAPHY: LM is a moderate caliber vessel with an ostial 80% stenosis and distal 90% stenosis. 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 LAD is a moderate caliber heavily calcified vessel with a proximal to mid diffuse 80% stenosis. The distal vessel fills via a patent MARIBELL graft and has no significant disease. Ramus is a small caliber vessel with an ostial 50% stenosis. D1 is a small claiber vessel that arises just distal to the LM aneurysm. LCx is a small caliber calcified vessel with diffuse 50-70% stenosis. OM1 is a small caliber vessel that arises just distal to the LM stem aneurysm and has mild luminal irregularities. RCA is a large caliber dominant vessel with an ostial heavily calcified 95% stenosis. RPDA and RPL are small to moderate caliber vessels that fill via a patent vein graft. The RPDA has a mid 50% stenosis. BYPASS ANGIOGRAPHY: AGUSTIN to LAD is widely patent without significant anastomotic stenosis. SVG to RCA is widely patent without anastomotic stenosis. Radial/SVG graft to the LCx system not visualized. No evidence of competitive flow on poarch injection. Conclusion 1. Elevated left ventricular filling pressures consistent with acute on chronic systolic/diastolic HF 2. HTN 3. Severe [place] three vessel CAD, unchanged from cath in 12/2017 4. Severe diffuse small vessel disease likely culprit for NSTEMI 5. 2/4 grafts patent. Recommendations Aggressive medical therapy. Signed by : Vicente Sheridan, Electronically Approved : 05/22/2018 16:51:21 (copied from chart) Patient well from his procedure. Medications were adjusted by our cardiological industry consultant and he was also seen in consultation by pulmonary in order to address his pulmonary status. Due to his obesity the patient will require pulmonary function tests and the sleep study recommended by our consultants in the outpatient setting. He was deemed appropriate from the cardiological standpoint of dismissed on today's date after medically maximizing his therapy. Patient feels better after greater than 5 L diuresis while inpatient. Dietary counseling importance off medication adherence was provided to the patient all his concerns were addressed to the best of my abilities. Discharge Information Condition at Discharge: Improved Follow Up: Weeks Disposition/Orders: D/C to Home Scheduled Aspirin (Aspirin) 81 Mg Tab.chew, 81 MG PO DAILYAC, (Reported) Entered as Reported by: [facility] on 05/06/15 1353 Last Action: Continued on 05/21/181735 by KETTY VILLEGAS Atorvastatin Calcium (Atorvastatin Calcium) 20 Mg Tablet, 20 MG PO HS for dyslipidemia for 30 Days, #30 Ref 0 Prescribed by: STEPHANY YING MD on 05/24/18 1202 Clopidogrel Bisulfate (Clopidogrel) 75 Mg Tablet, 75 MG PO DAILYWBKFT for antiplatelet for 30 Days, #30 Prescribed by: STEPHANY YING MD on 05/24/18 1202 Furosemide (Furosemide) 40 Mg Tablet, 40 MG PO BID, (Reported) Entered as Reported by: Tyree Alvarez on 07/15/172137 Last Action: Continued on 05/21/181735 by KETTY VILLEGAS Furosemide (Lasix) 40 Mg Tablet, 1 TAB PO DAILY for CHF, #30 Ref 5 Prescribed by: STEPHANY YING MD on 05/24/18 1206 Glipizide (Glipizide) 10 Mg Tablet, 1 TAB PO BID for blood sugar, #60 Ref 5 ( Reported) Entered as Reported by: RUTH PEDRAZA on 07/09/142002 Last Action: Converted on 05/21/181735 by KETTY VILLEGAS Hydralazine Hcl (Hydralazine Hcl) 50 Mg Tablet, 75 MG PO BID for Hypertension for 30 Days, #90 Prescribed by: STEPHANY YING MD on 05/24/18 1202 Isosorbide Mononitrate (Isosorbide Mononitrate Er) 30 Mg Tab.er.24h, 60 MG PO DAILY for CHF for 30 Days, #60 Prescribed by: STEPHANY YING MD on 05/24/18 1202 Losartan Potassium (Losartan Potassium) 100 Mg Tablet, 100 MG PO DAILY, ( Reported) Entered as Reported by: Tyree Alvarez on 07/15/172137 Last Action: Converted on 05/21/181735 by KETTY VILLEGAS Metoprolol Succinate (Metoprolol Succinate ( Xl )) 25 Mg Tab.er.24h, 25 MG PO DAILY for CHF for 30 Days, #30 Prescribed by: STEPHANY YING MD on 05/24/182 Pioglitazone Hcl (Actos) 30 Mg Tablet, 1 TAB PO DAILY, #30 Ref 5 (Reported) Entered as Reported by: Tyree Alvarez on 07/15/172137 Last Action: Converted on 05/21/181735 by KETTY VILLEGAS Potassium Chloride (Potassium Chloride) 20 Meq Tablet.er, 20 MEQ PO BID, ( Reported) Entered as Reported by: Tyree Alvarez on 07/15/172137 Last Action: Converted on 05/21/181735 by KETTY VILLEGAS Spironolactone (Spironolactone) 50 Mg Tablet, 1 TAB PO DAILY, #30 Ref 5 ( Reported) Entered as Reported by: Melyssa Schaffer on 12/19/17 0738 Last Action: Converted on 05/21/181735 by KETTY VILLEGAS Spironolactone (Aldactone) 25 Mg Tablet, 25 MG PO DAILY for CHF for 30 Days, #30 Prescribed by: STEPHANY YING MD on 05/24/18 1207 STEPHANY YING MD May 24, 2018 12:50
--- NOTE | 2018-05-24 14:01 | NUR ---
Medications finalized by the primary prior to correcting dosages and medications. The patient however was given all the correct medication lists, changes and all scripts called to [facility] in [place] per pats request. Spoke directly to Cristhian at [facility] and went over all changes with pharmacist. Pt notified.
--- NOTE | 2018-05-24 14:12 | NUR ---
patient given return to work note per request to return on 05/27/18.
[2018-05-24] MEDS: ANTI-COAG MONITOR BY PHARMACY. MC PRN (15:45)
[2018-05-25] MEDS ORDERED: METOPROLOL SUCC 24HR ER 25 MG TAB.ER.24H. PO SCH (09:00)
== END 2018-05-24 14:00 | disposition home or self-care (01) | DRG 871 ==
LOC: ER 13:24 → 1 WEST ICU 14:20 → 2 NORTH 05-23 17:00
PROVIDERS: ADMIT Internal Medicine; ATTEND Internal Medicine
PROC: 5A09357 Assistance with Respiratory Ventilation, Less than 24 Consecutive Hours, Continuous Positive Airway Pressure (ICD-10-PCS; 2018-05-21)
PROC: 4A023N7 Measurement of Cardiac Sampling and Pressure, Left Heart, Percutaneous Approach (ICD-10-PCS; principal; 2018-05-22)
PROC: B2111ZZ Fluoroscopy of Multiple Coronary Arteries using Low Osmolar Contrast (ICD-10-PCS; 2018-05-22)
PROC: B2181ZZ Fluoroscopy of Left Internal Mammary Bypass Graft using Low Osmolar Contrast (ICD-10-PCS; 2018-05-22)
PROC: B2131ZZ Fluoroscopy of Multiple Coronary Artery Bypass Grafts using Low Osmolar Contrast (ICD-10-PCS; 2018-05-22)
PROC: 5A09357 Assistance with Respiratory Ventilation, Less than 24 Consecutive Hours, Continuous Positive Airway Pressure (ICD-10-PCS; 2018-05-22)
DX: A41.9 Sepsis, unspecified organism (principal); I21.4 Non-ST elevation (NSTEMI) myocardial infarction; I50.43 Acute on chronic combined systolic (congestive) and diastolic (congestive) heart failure; J96.01 Acute respiratory failure with hypoxia; N17.0 Acute kidney failure with tubular necrosis; I13.0 Hypertensive heart and chronic kidney disease with heart failure and stage 1 through stage 4 chronic kidney disease, or unspecified chronic kidney disease; J98.11 Atelectasis; R04.2 Hemoptysis; I25.10 Atherosclerotic heart disease of native coronary artery without angina pectoris; N18.3 Chronic kidney disease, stage 3 (moderate); E78.00 Pure hypercholesterolemia, unspecified; E11.22 Type 2 diabetes mellitus with diabetic chronic kidney disease; E11.65 Type 2 diabetes mellitus with hyperglycemia; E11.42 Type 2 diabetes mellitus with diabetic polyneuropathy; M19.90 Unspecified osteoarthritis, unspecified site; F41.9 Anxiety disorder, unspecified; E66.01 Morbid (severe) obesity due to excess calories; E78.5 Hyperlipidemia, unspecified; K21.9 Gastro-esophageal reflux disease without esophagitis; I95.9 Hypotension, unspecified; Z96.651 Presence of right artificial knee joint; Z83.3 Family history of diabetes mellitus; Z87.891 Personal history of nicotine dependence; Z90.49 Acquired absence of other specified parts of digestive tract; Z82.49 Family history of ischemic heart disease and other diseases of the circulatory system; Z88.0 Allergy status to penicillin; Z88.8 Allergy status to other drugs, medicaments and biological substances; I25.2 Old myocardial infarction; Z95.1 Presence of aortocoronary bypass graft
CPT/HCPCS: 36415; 36600; 71045; 80047; 80048; 80053; 80061; 82553; 82805; 82962; 83735; 84484; 85007; 85025; 85027; 85520; 87641; 93005; 93306; 93459; 94640; 94660; 96365; 96366; 96375; 99152; 99153; C1769; C1771; C1892; G0269; J1644; J1815; J1940; J1956; J2250; J2270; J3010; J3490; J7613; 99291-25